=== PATIENT | female | born 1940 | race Caucasian/White ===

== ENCOUNTER 2017-01-30 22:43 | Emergency (ER) | payer MEDICARE, OTHER ==
[2017-01-30] MEDS ORDERED: DUONEB 0.5-3 MG/3 ml Neb IH ONE ×2 (22:54→23:38)
--- NOTE | 2017-01-30 23:03 | ERPHSYRPT ---
- History of Present Illness Time Seen by Provider: 01/30/17 22:55 Source: patient, other (daughter) Exam Limitations: no limitations Patient Subjective Stated Complaint: Bilateral Leg edema x2 weeks Triage Nursing Assessment: Bilateral Leg Edema x2 weeks, worsening x2 days. Increased lasix to 80mg daily last week with no improvements. Cough beginning today. Physician History: Pt has been c/o swelling of her ankles for 2 weeks. She was seen by her doctor and her Lasix was doubled from 20 mg daily few days ago. She is still c/o more severe increasing of the swelling more so on the left side, which has become painful as well. She has COPD, c/o chronic SOB, she has been on home O2 most of the time, denies chest pain, has nonproductive cough, but no fever, nausea, vomiting, diaphoresis or any distress. Method of Injury: other (denies injury) Occurred: days ago (2) Quality: constant Severity of Pain-Max: mild Lower Extremities Pain: ankle: bilateral (swelling) Modifying Factors: Improves With: nothing Associated Symptoms: none Allergies/Adverse Reactions: ciprofloxacin [From Cipro] Allergy (Verified 06/28/15 14:48) ciprofloxacin HCl [From Cipro] Allergy (Verified 06/28/15 14:48) levofloxacin [From Levaquin] Allergy (Verified 06/28/15 14:48) Antihistamines - Alkylamine Adverse Reaction (Unknown, Verified 06/28/15 14:48) Nausea doxycycline Adverse Reaction (Unknown, Verified 06/28/15 14:48) Vomiting metronidazole Adverse Reaction (Verified 06/28/15 14:48) Nausea Home Medications: Albuterol 2.5 mg/3 ml Neb [Proventil 2.5 mg/3 ml Neb] 2.5 mg IH TID [History] Aspirin 81 mg PO DAILY 09/02/14 [History] Calcium Carb/Magnesium Oxid/D3 [Calcium Magnesium + D Tablet] 1 each PO TID [History] Celecoxib [Celebrex] 200 mg PO DAILY 09/02/14 [History] Estrogens,Conjugated [Premarin] 0.625 mg PO DAILY 09/02/14 [History] Furosemide [Lasix] 20 mg PO BID 09/02/14 [History] Gabapentin [Neurontin] 300 mg PO TID 09/02/14 [History] Ipratropium/Albuterol Sulfate [Combivent Inhaler] 14.7 gm IH TID 09/02/14 [ History] Lorazepam 0.5 mg [Ativan 0.5 MG] 0.5 mg PO HS 09/02/14 [History] Metoprolol Tartrate 25 mg [Lopressor 25MG Tab] 25 mg PO BID 09/02/14 [ History] Multivitamin [Multivitamins] 1 each PO DAILY 09/02/14 [History] Rabeprazole Sodium [Aciphex] 20 mg PO DAILY 09/02/14 [History] Ropinirole 2Mg [Requip 2Mg Tab] 2 mg PO HS 09/02/14 [History] Ascorbic Acid [Vitamin C] 1,000 mg PO DAILY 01/14/15 [History] Amlodipine Besylate/Benazepril [Lotrel 10-20 mg Capsule] 1 each PO DAILY [History] Biotin 1 mg PO HS 03/30/15 [History] Gemfibrozil 600 mg [Lopid 600 mg] 1,200 mg PO BID 03/30/15 [History] Hydrocodone Bitartrate [Zohydro ER] 15 mg PO BID 03/30/15 [History] Tizanidine HCl 4 mg [Zanaflex 4 MG] 4 mg PO HS 03/30/15 [History] Vitamin B Complex [B Complex] 1 each PO DAILY 03/30/15 [History] Sulfamethoxazole/Trimethoprim [Sulfamethoxazole-Tmp Ds Tablet] 0.5 each PO DAILY 08/09/15 [History] Hx Tetanus, Diphtheria Vaccination/Date Given: No Hx Influenza Vaccination/Date Given: No Hx Pneumococcal Vaccination/Date Given: No - Review of Systems Constitutional: No Symptoms Eyes: No Symptoms Ears, Nose, & Throat: No Symptoms Respiratory: Cough, Dyspnea on Exertion (NDIAYE) Cardiac: Edema, No Chest Pain, No Palpitations, No Orthopnea Abdominal/Gastrointestinal: No Symptoms All Other Systems: Reviewed and Negative - Past Medical History Pertinent Past Medical History: Yes Neurological History: Migraines ENT History: Cataracts Cardiac History: Coronary Artery Disease, High Cholesterol, Hypertension Respiratory History: COPD, Other Endocrine Medical History: No Pertinent History Musculoskeletal History: Arthritis GI Medical History: Diverticulitis, GERD, Polyps History: No Pertinent History Psycho-Social History: No Pertinent History Female Reproductive Disorders: Fibroids Other Medical History: pul htn, chronic back pain - Past Surgical History Past Surgical History: Yes (hysterctomy,appendectomy,choly) Neuro Surgical History: Other Cardiac: Angioplasty Respiratory: No Pertinent History Gastrointestinal: Appendectomy, Cholecystectomy Genitourinary: No Pertinent History Musculoskeletal: Other Female Surgical History: Hysterectomy, Tubal Ligation, Other Other Surgical History: herinated disk, removal pus pocket to left breast, steroid to right shoulder; tonsillectomy - Social History Smoking Status: Never smoker Exposure to second hand smoke: No Alcohol Use: None Drug Use: none Patient Lives Alone: No Significant Family History: heart disease, diabetes, other - Nursing Vital Signs Nursing Vital Signs: Initial Vital Signs Temperature 97.8 F 01/30/17 22:45 Pulse Rate 68 01/30/17 22:45 Respiratory Rate 18 01/30/17 22:45 Blood Pressure 151/82 01/30/17 22:45 O2 Sat by Pulse Oximetry 96 01/30/17 22:45 Pain Scale Pain Intensity 5 - Physical Exam General Appearance: no apparent distress Eyes, Ears, Nose, Throat Exam: normal ENT inspection Neck Exam: normal inspection, non-tender, supple, No JVD Cardiovascular/Respiratory Exam: chest non-tender, normal breath sounds, regular rate/rhythm, heart sounds normal, no JVD, no respiratory distress, normal peripheral pulses, No crepitus, No JVD Gastrointestinal/Abdominal Exam: non-tender, soft Back Exam: normal inspection Ankle Exam: bilateral ankle: swelling (2 + edema) Neuro/Tendon Exam: normal sensation, normal motor functions Mental Status Exam: alert, oriented x 3, cooperative Skin Exam: normal color, warm, dry, No rash, No petechiae, No cyanosis SpO2 Interpretation: normal SpO2: 96 Oxygen Delivery: Nasal Cannula - Course EKG Interpreted by Me: RATE, NORMAL AXIS, NORMAL INTERVALS, Non-specific ST Changes - Radiology Exams Chest X-ray Interpretation: Interpreted by me, Negative, No Pneumonia, No Pneumothorax Ordered Tests: Active Orders 24 hr Category Date Time Status Case Folder STAT Care 01/30/17 22:55 Active EKG-ER Only STAT Care 01/30/17 22:54 Active IV Insertion STAT Care 01/30/17 23:29 Active CHEST 1 VIEW (PORTABLE) Stat Exams 01/30/17 22:55 Taken VENOUS BILATERAL EXTREMITY [US] Stat Exams 01/30/17 Ordered CBC W DIFF Stat Lab 01/30/17 23:20 Completed CMP Stat Lab 01/30/17 23:20 Completed NT PRO BNP Stat Lab 01/30/17 23:20 Completed PROTIME WITH INR Stat Lab 01/30/17 23:20 Completed TROPONIN Q3H Lab 01/30/17 23:20 Completed TROPONIN Q3H Lab 01/31/17 02:00 Ordered TROPONIN Q3H Lab 01/31/17 05:00 Ordered TROPONIN Q3H Lab 01/31/17 08:00 Ordered TROPONIN Q3H Lab 01/31/17 11:00 Ordered Respiratory Nebulizer STAT RT 01/30/17 22:56 Active Medication Summary Discontinued Medications Generic Name Dose Route Start Last Admin Trade Name Freq PRN Reason Stop Dose Admin Albuterol/Ipratropium 3 ml 01/30/17 22:54 01/30/17 23:40 Duoneb 0.5-3 Mg/3 Ml Neb IH 01/30/17 22:55 3 ml STAT ONE Administration Albuterol/Ipratropium Confirm 01/30/17 23:38 Duoneb 0.5-3 Mg/3 Ml Neb Administered 01/30/17 23:39 Dose 3 ml IH .STK-MED ONE Lab/Rad Data: Laboratory Result Diagrams 01/30/17 23:20 01/30/17 23:20 Laboratory Results 01/30/17 01/30/17 01/30/17 Range/Units 23:20 23:20 23:20 WBC (4.0-10.5) K/mm3 RBC (4.1-5.4) M/mm3 Hgb (12.0-16.0) gm/dl Hct (35-47) % MCV (78-100) fl MCH (26-32) pg MCHC (32-36) g/dl RDW (11.5-14.0) % Plt Count (150-450) K/mm3 MPV (6-9.5) fl Gran % (36.0-66.0) % Lymphocytes % (24.0-44.0) % Monocytes % (0.0-12.0) % Eosinophils % (0.00-5.0) % Basophils % (0.0-0.4) % Basophils # (0-0.4) INR 3.50 H (0.8-3.0) Sodium 137 (136-145) mEq/L Potassium 4.3 (3.5-5.1) mEq/L Chloride 101 (98-107) mEq/L Carbon Dioxide 25.7 (21-32) mEq/L Anion Gap 14.6 (5-15) MEQ/L BUN 26 H (9-20) mg/dL Creatinine 1.22 (0.55-1.30) mg/dl Estimated GFR 45 ML/MIN Glucose 103 (70-110) MG/DL Calcium 9.3 (8.5-10.1) mg/dL Total Bilirubin 0.30 (0.2-1.0) mg/dL AST 20 (15-37) U/L ALT 18 (12-78) U/L Alkaline Phosphatase 58 (46-116) U/L Troponin I < 0.017 (0.000-0.056) ng/ml NT-Pro-B Natriuret Pep 205 (0-450) pg/ml Serum Total Protein 7.7 (6.4-8.2) gm/dL Albumin 3.6 (3.4-5.0) g/dL 01/30/ Range/Units 23:20 WBC 8.9 (4.0-10.5) K/mm3 RBC 4.33 (4.1-5.4) M/mm3 Hgb 13.0 (12.0-16.0) gm/dl Hct 40.0 (35-47) % MCV 92.4 (78-100) fl MCH 30.0 (26-32) pg MCHC 32.5 (32-36) g/dl RDW 14.0 (11.5-14.0) % Plt Count 250 (150-450) K/mm3 MPV 10.3 H (6-9.5) fl Gran % 41.8 (36.0-66.0) % Lymphocytes % 42.8 (24.0-44.0) % Monocytes % 10.4 (0.0-12.0) % Eosinophils % 4.8 (0.00-5.0) % Basophils % 0.2 (0.0-0.4) % Basophils # 0.02 (0-0.4) INR (0.8-3.0) Sodium (136-145) mEq/L Potassium (3.5-5.1) mEq/L Chloride (98-107) mEq/L Carbon Dioxide (21-32) mEq/L Anion Gap (5-15) MEQ/L BUN (9-20) mg/dL Creatinine (0.55-1.30) mg/dl Estimated GFR ML/MIN Glucose (70-110) MG/DL Calcium (8.5-10.1) mg/dL Total Bilirubin (0.2-1.0) mg/dL AST (15-37) U/L ALT (12-78) U/L Alkaline Phosphatase (46-116) U/L Troponin I (0.000-0.056) ng/ml NT-Pro-B Natriuret Pep (0-450) pg/ml Serum Total Protein (6.4-8.2) gm/dL Albumin (3.4-5.0) g/dL - Progress Progress: unchanged Progress Note: 01/31/17 00:46 Pt has been stable, lying comfortable, not dyspneic, or febrile, stable, denies severe pain, Venous doppler negative, no DVT, Chest X ray reveals cardiomegaly, but no effusion or infiltrates. I discussed our results, and suggested to start using elastic stocking or NORY bands for the swelling and pain in the legs, and follow up with her doctor in the next few days, they understood, all questions answered, and safe to be discharged. - Departure Time of Disposition: 00:48 Departure Disposition: Home Clinical Impression: Edema Qualifiers: Edema type: unspecified Qualified Code(s): R60.9 - Edema, unspecified Condition: Stable Critical Care Time: No Referrals: LAKSHMI GARCIA [Primary Care Provider] - Instructions: Dependent Edema, Edema Due to Venous Stasis Additional Instructions: Rest with elevated legs, use elastic stockings, or NORY bands when ambulating, return if severe swelling, or pain or shortness of breath, chest pain! Follow up with your doctor in one week!
[2017-01-30 23:31] LABS: BASOPHIL % 0.2 % (0.0-0.4); Eosinophil % 4.8 % (0.00-5.0); Granulocytes % 41.8 % (36.0-66.0); Lymphocytes % 42.8 % (24.0-44.0); Mean Cell Volume 92.4 fl (78-100); Mean Platelet Volume 10.3 fl (6-9.5); Monocytes % 10.4 % (0.0-12.0); Platelet Count 250 K/mm3 (150-450); Red Blood Count 4.33 M/mm3 (4.1-5.4); White Blood Count 8.9 K/mm3 (4.0-10.5)
[2017-01-30 23:57] LABS: INR 3.5 (0.8-3.0); PROTIME 39.4 SECONDS (9.95-12.35)
[2017-01-31 00:12] LABS: ALBUMIN 3.6 g/dL (3.4-5.0); ANION GAP 14.6 MEQ/L (5-15); BILIRUBIN,TOTAL 0.3 mg/dL (0.2-1.0); Carbon Dioxide 25.7 mEq/L (21-32); Potassium 4.3 mEq/L (3.5-5.1); Total Protein 7.7 gm/dL (6.4-8.2)
[2017-01-31 01:11] VITALS: BP 123/58; PULSE 70; O2SAT 94
--- NOTE | 2017-01-31 09:22 | XRAY ---
Indication: Dyspnea and lower extremity edema. Comparison: September 08, 2015. Portable chest again demonstrates calcified granulomas. No focal infiltrate, consolidation, or large effusion. Heart is not enlarged for AP portable technique. Bony thorax intact again with minimal degenerative changes. Impression: Nonacute chest with chronic features.
--- NOTE | 2017-01-31 09:22 | XRAY ---
Indication: Bilateral leg swelling. Two-dimensional sonogram and color Doppler imaging of the major venous vessels of the left and right leg was performed. Comparison: None No thrombus seen in the examined deep venous vessels of the left and right leg including greater saphenous veins. Veins demonstrate normal compressibility. Venous waveforms are normal with and without augmentation. Impression: Left and right legs negative for DVT. Comment: Preliminary report was given.
== END 2017-01-31 01:11 | disposition home or self-care (01) ==
LOC: ED 22:43
DX: R60.9 Edema, unspecified (principal); J44.9 Chronic obstructive pulmonary disease, unspecified; R05 Cough; I10 Essential (primary) hypertension; E78.00 Pure hypercholesterolemia, unspecified; I25.10 Atherosclerotic heart disease of native coronary artery without angina pectoris; Z79.899 Other long term (current) drug therapy
CPT/HCPCS: 36415; 71010; 80053; 83880; 84484; 85025; 85610; 93005; 93041; 93970; 94640; 99283; 99284; A9270-GY

== ENCOUNTER 2017-08-19 12:08 | Inpatient (IN) | payer MEDICARE, OTHER ==
[2017-08-19] MEDS ORDERED: HYPROMELLOSE IU PRN (15:31)
[2017-08-19] MEDS ORDERED: Zanaflex 4 MG PO PRN (15:31)
[2017-08-19] MEDS ORDERED: NORCO 7.5/325 MG TAB PO PRN (15:31)
[2017-08-19] MEDS ORDERED: DEXTRAN IU PRN (15:31)
[2017-08-19] MEDS ORDERED: METHYLCELLULOSE 500 MG PO PRN (15:31)
[2017-08-19] MEDS ORDERED: Voltaren GEL TP PRN (15:31)
[2017-08-19] MEDS ORDERED: Metamucil PACKET PO PRN (15:50)
[2017-08-19] MEDS ORDERED: Artificial Tears 15 ML OP PRN (15:52)
[2017-08-19] MEDS ORDERED: MEDICATION INTERVENTION MC SCH ×2 (16:00→16:15)
[2017-08-19] MEDS: DUONEB 0.5-3 MG/3 ml Neb IH SCH (17:04)
[2017-08-19] MEDS: NYSTOP POWDER 15 GM TP SCH ×2 (17:07→22:11)
[2017-08-19] MEDS: KEFLEX 500 MG PO SCH ×2 (17:30→22:08)
[2017-08-19] MEDS: Coumadin 2.5 MG PO SCH (17:30)
[2017-08-19] MEDS: LASIX 20 MG PO SCH (17:40)
[2017-08-19] MEDS ORDERED: Cyclobenzaprine 10 MG PO PRN (17:54)
[2017-08-19] MEDS ORDERED: CHLORASEPTIC SPRAY 180 ML PO PRN (17:54)
[2017-08-19] MEDS ORDERED: PROVENTIL 2.5 MG/3 ML NEB IH SCH (19:00)
[2017-08-19] MEDS ORDERED: NON-FORMULARY ITEM (Aspirin [Aspirin] 81 MG) PO SCH (22:00)
[2017-08-19] MEDS ORDERED: BIOTIN 1 MG PO SCH (22:00)
[2017-08-19] MEDS ORDERED: Ativan 0.5 MG PO SCH (22:00)
[2017-08-19] MEDS ORDERED: NON-FORMULARY ITEM (Ipratropium/Albuterol Sulfate [Combivent Inhaler] 14.7 GM) IH SCH (22:00)
[2017-08-19] MEDS ORDERED: HYDROCODONE BITARTRATE PO SCH (22:00)
[2017-08-19] MEDS: REQUIP 2MG TAB PO SCH (22:08)
[2017-08-19] MEDS: NEURONTIN 300 MG PO SCH (22:08)
[2017-08-19] MEDS: LOPID 600 MG PO SCH (22:08)
[2017-08-19] MEDS: Toprol-Xl 25MG Tablets PO SCH (22:08)
[2017-08-19] MEDS: ECOTRIN 81 MG PO SCH (22:09)
[2017-08-19] MEDS: PATIENT OWN MEDICATION PO SCH (22:12)
[2017-08-20] MEDS ORDERED: PROVENTIL 2.5 MG/3 ML NEB IH PRN (01:09)
[2017-08-20] MEDS: DUONEB 0.5-3 MG/3 ml Neb IH SCH ×3 (07:03→19:30)
[2017-08-20] MEDS: MUCINEX DM 600/30MG PO SCH (09:38)
[2017-08-20] MEDS: LASIX 20 MG PO SCH (09:39)
[2017-08-20] MEDS: Protonix 40MG Tablet PO SCH (09:39)
[2017-08-20] MEDS: THERAGRAN MULTIVITAMIN PO SCH (09:39)
[2017-08-20] MEDS: LOPID 600 MG PO SCH ×2 (09:39→21:59)
[2017-08-20] MEDS: Zocor 10MG PO SCH (09:39)
[2017-08-20] MEDS: VITA-BEE WITH C PO SCH (09:39)
[2017-08-20] MEDS: Lotrel 5/10 MG PO SCH (09:39)
[2017-08-20] MEDS: KEFLEX 500 MG PO SCH ×4 (09:40→21:59)
[2017-08-20] MEDS: NYSTOP POWDER 15 GM TP SCH ×3 (09:40→21:59)
[2017-08-20] MEDS: Toprol-Xl 25MG Tablets PO SCH ×2 (09:40→21:58)
[2017-08-20] MEDS: PREMARIN PO SCH (09:40)
[2017-08-20] MEDS: PATIENT OWN MEDICATION PO SCH ×2 (09:55→21:59)
[2017-08-20] MEDS ORDERED: VITAMIN B COMPLEX PO SCH (10:00)
[2017-08-20] MEDS ORDERED: Aplisol ID SCH (10:00)
[2017-08-20] MEDS ORDERED: GUAIFENESIN PO SCH (10:00)
[2017-08-20] MEDS ORDERED: NON-FORMULARY ITEM (Amlodipine Besylate/Benazepril [Lotrel 10-20 Mg Capsule] 1 EACH) PO SCH (10:00)
[2017-08-20] MEDS ORDERED: NON-FORMULARY ITEM (Simvastatin [Zocor] 5 MG) PO SCH (10:00)
[2017-08-20] MEDS ORDERED: [UNRECOGNIZED DRUG - OTHER] PO SCH (10:00)
[2017-08-20] MEDS ORDERED: NON-FORMULARY ITEM (Multivitamin [Multivitamins] 1 EACH) PO SCH (10:00)
[2017-08-20] MEDS ORDERED: Klor Con 10 MEQ PO SCH (10:00)
[2017-08-20] MEDS ORDERED: DEXTROMETHORPHAN PO SCH (10:00)
[2017-08-20 11:25] LABS: INR 4.18 (0.8-3.0)
[2017-08-20] MEDS: Calcium 500MG W/Vit D Tablet PO SCH (11:51)
[2017-08-20] MEDS: NEURONTIN 300 MG PO SCH (11:51)
[2017-08-20] MEDS: celeBREX 100 MG PO SCH (11:51)
[2017-08-20] MEDS ORDERED: [UNRECOGNIZED DRUG - OTHER] PO SCH (12:00)
[2017-08-20] MEDS ORDERED: NON-FORMULARY ITEM (Rabeprazole Sodium [Aciphex] 20 MG) PO SCH (12:00)
[2017-08-20] MEDS ORDERED: NON-FORMULARY ITEM (Celecoxib [Celebrex] 200 MG) PO SCH (12:00)
[2017-08-20] MEDS ORDERED: D3 PO SCH (12:00)
[2017-08-20] MEDS ORDERED: MAGNESIUM OXID PO SCH (12:00)
[2017-08-20] MEDS ORDERED: CALCIUM CARB PO SCH (12:00)
[2017-08-20] MEDS ORDERED: Ativan 0.5 MG PO PRN (14:57)
--- NOTE | 2017-08-20 15:27 | PCM.HP ---
History of Present Illness - Chief Complaint Chief Complaint: deconditioning History of Present Illness: is a 77 year old female.admitted with weakness for reconditioning - Review of Systems Constitutional: No Fever, No Chills Eyes: No Symptoms Ears, Nose, & Throat: No Symptoms Respiratory: No Cough, No Short Of Breath Cardiac: No Chest Pain, No Edema, No Syncope Abdominal/Gastrointestinal: No Abdominal Pain, No Nausea, No Vomiting, No Diarrhea Genitourinary Symptoms: No Dysuria Musculoskeletal: No Back Pain, No Neck Pain Skin: No Rash Neurological: No Dizziness, No Focal Weakness, No Sensory Changes Psychological: No Symptoms Endocrine: No Symptoms Hematologic/Lymphatic: No Symptoms Immunological/Allergic: No Symptoms Medications & Allergies Home Medications: Home Medication List Albuterol 2.5 mg/3 ml Neb [Proventil 2.5 mg/3 ml Neb] 2.5 mg IH QID [History Confirmed 08/19/17] Aspirin 81 mg PO HS 09/02/14 [History Confirmed 08/19/17] Calcium Carb/Magnesium Oxid/D3 [Calcium Magnesium + D Tablet] 1 each PO LUNCH [History Confirmed 08/19/17] Celecoxib [Celebrex] 200 mg PO LUNCH 09/02/14 [History Confirmed 08/19/17] Estrogens,Conjugated [Premarin] 0.625 mg PO DAILY 09/02/14 [History Confirmed ] Gabapentin [Neurontin] 300 mg PO BID 09/02/14 [History Confirmed 08/19/17] Ipratropium/Albuterol Sulfate [Combivent Inhaler] 14.7 gm IH TID 09/02/14 [ History Confirmed 08/19/17] Lorazepam 0.5 mg [Ativan 0.5 MG] 1 - 2 tab PO HS 09/02/14 [History Confirmed 08/19/17] Multivitamin [Multivitamins] 1 each PO DAILY 09/02/14 [History Confirmed ] Rabeprazole Sodium [Aciphex] 20 mg PO LUNCH 09/02/14 [History Confirmed 08/19/17 ] Ropinirole 2Mg [Requip 2Mg Tab] 2 mg PO HS 09/02/14 [History Confirmed 05/04] Amlodipine Besylate/Benazepril [Lotrel 10-20 mg Capsule] 1 each PO DAILY [History Confirmed 08/19/17] Biotin 1 mg PO HS 03/30/15 [History Confirmed 08/19/17] Gemfibrozil 600 mg [Lopid 600 mg] 600 mg PO BID 03/30/15 [History Confirmed 08/19/17] Hydrocodone Bitartrate [Zohydro ER] 15 mg PO BID 03/30/15 [History Confirmed 05/04] Tizanidine HCl 4 mg [Zanaflex 4 MG] 4 mg PO HS PRN 03/30/15 [History Confirmed 08/19/17] Vitamin B Complex [B Complex] 1 each PO DAILY 03/30/15 [History Confirmed ] Dextran 70/Hypromellose [Moisture Eyes Protect Drops] 2 drop IU QID PRN [History Confirmed 08/19/17] Diclofenac Sodium Gel [Voltaren GEL] 100 gm TP BID PRN 08/19/17 [History Confirmed 08/19/17] Guaifenesin/Dextromethorphan [Mucinex Dm ER 1,200-60 mg Tab] 1 each PO DAILY 05/04 [History Confirmed 08/19/17] Hydrocodone Bit/Acetaminophen [Archbald 7.5-325 Tablet] 1 each PO Q4H PRN 08/19/17 [History Confirmed 08/19/17] Methylcellulose [Citrucel] 500 mg PO DAILY PRN 08/19/17 [History Confirmed 08/19] Metoprolol Succinate 25 mg Xl* [Toprol-Xl 25MG Tablets] 25 mg PO BID [History Confirmed 08/19/17] Nystatin Powder 15 gm [Nystop Powder 15 gm] 15 gm TP TID 08/19/17 [ History Confirmed 08/19/17] Potassium Chloride 10 Meq Tab* [Klor Con 10 MEQ] 1 tab PO DAILY 08/19/17 [ History Confirmed 08/19/17] Simvastatin [Zocor] 5 mg PO DAILY 08/19/17 [History Confirmed 08/19/17] Warfarin Sodium 2.5 mg [Coumadin 2.5 MG] 2.5 mg PO DAILY 08/19/17 [ History Confirmed 08/19/17] Allergies/Adverse Reactions: Allergies Allergy/AdvReac Type Severity Reaction Status Date / Time ciprofloxacin [From Cipro] Allergy Verified 06/28/15 14:48 ciprofloxacin HCl Allergy Verified 06/28/15 14:48 [From Cipro] levofloxacin [From Levaquin] Allergy Verified 06/28/15 14:48 Antihistamines - Alkylamine AdvReac Unknown Nausea Verified 06/28/15 14:48 doxycycline AdvReac Unknown Vomiting Verified 06/28/15 14:48 metronidazole AdvReac Nausea Verified 06/28/15 14:48 - Past Medical History Past Medical History: Yes Neurological History: Migraines ENT History: Cataracts Cardiac History: Coronary Artery Disease, High Cholesterol, Hypertension Respiratory History: COPD, Other Endocrine Medical History: No Pertinent History Musculoskelatal History: Arthritis GI Medical History: Diverticulitis, GERD, Polyps History: No Pertinent History Pyscho-Social History: No Pertinent History Reproductive Disorders: Fibroids Comment: pul htn, chronic back pain - Female History Are you now?: No - Past Surgical History Past Surgical History: Yes (hysterctomy,appendectomy,choly) Neuro Surgical History: Other Cardiac History: Angioplasty Respiratory Surgery: No Pertinent History GI Surgical History: Appendectomy, Cholecystectomy Genitourinary Surgical Hx: No Pertinent History Musculskeletal Surgical Hx: Other Female Surgical History: Hysterectomy, Tubal Ligation, Other Other Surgical History: herinated disk, removal pus pocket to left breast, steroid to right shoulder; tonsillectomy - Social History Smoking Status: Never smoker Exposure to second hand smoke: No Alcohol: None Drug Use: none Significant Family History: heart disease, diabetes, other - Physical Exam Vital Signs: Vital Signs - 24 hr Temp Pulse Resp BP Pulse Ox 08/20/17 13:54 79 20 84 L 08/20/17 07:30 99.3 F 78 20 146/72 87 L 08/20/17 07:03 75 22 82 L 08/19/17 20:00 98.8 F 83 18 147/70 91 L 08/19/17 19:46 89 18 91 L 08/19/17 17:53 96 H 18 87 L 08/19/17 16:54 99.5 F 87 18 196/84 87 L 08/19/17 16:16 99.5 F 81 18 196/84 Oxygen-Last 24 hours O2 Percentage 4 Liters = 36% O2 Percentage 3 Liters = 32% O2 Percentage 4 Liters = 36% O2 Percentage 3 Liters = 32% General Appearance: no apparent distress, alert Neurologic Exam: alert, oriented x 3, cooperative, normal mood/affect, nml cerebellar function, nml station & gait, sensation nml, No motor deficits Eye Exam: PERRL/EOMI, eyes nml inspection Ears, Nose, Throat Exam: normal ENT inspection, TMs normal, pharynx normal, moist mucous membranes Neck Exam: normal inspection, non-tender, supple, full range of motion Respiratory Exam: normal breath sounds, lungs clear, No respiratory distress Cardiovascular Exam: regular rate/rhythm, normal heart sounds, normal peripheral pulses Gastrointestinal/Abdomen Exam: soft, normal bowel sounds, No tenderness, No mass Back Exam: normal inspection, normal range of motion, No CVA tenderness, No vertebral tenderness Extremity Exam: normal inspection, normal range of motion, pelvis stable Skin Exam: normal color, warm, dry, No rash Lymphatic Exam: No adenopathy Results - Labs Lab/Micro Results: Lab Results-Last 24 Hours 08/19/17 08/20/17 Range/Units 18:10 10:52 PT 49.3 H (9.95-12.35) SECONDS INR 4.18 H (0.8-3.0) Group A Strep Antibody NEGATIVE (NEGATIVE) - Other Procedures and Tests Respiratory Therapy 08/19/17 17:53 Oxygen NASAL CANNULA 4 lpm 08/19/17 19:00 Respiratory Nebulizer 07,,19 Assessment/Plan (1) Physical debility Current Visit: Yes Status: Acute Code(s): R53.81 - OTHER MALAISE
[2017-08-20] MEDS: ECOTRIN 81 MG PO SCH (21:58)
[2017-08-20] MEDS: REQUIP 2MG TAB PO SCH (21:58)
[2017-08-21] MEDS: DUONEB 0.5-3 MG/3 ml Neb IH SCH ×3 (06:51→18:58)
[2017-08-21] MEDS: PATIENT OWN MEDICATION PO SCH ×2 (09:05→21:48)
[2017-08-21] MEDS: Aldactone 25 MG PO SCH (10:13)
[2017-08-21] MEDS: MUCINEX DM 600/30MG PO SCH (10:14)
[2017-08-21] MEDS: Toprol-Xl 25MG Tablets PO SCH ×2 (10:14→21:48)
[2017-08-21] MEDS: KEFLEX 500 MG PO SCH ×4 (10:14→21:47)
[2017-08-21] MEDS: Zocor 10MG PO SCH (10:14)
[2017-08-21] MEDS: THERAGRAN MULTIVITAMIN PO SCH (10:14)
[2017-08-21] MEDS: Lotrel 5/10 MG PO SCH (10:14)
[2017-08-21] MEDS: PREMARIN PO SCH (10:15)
[2017-08-21] MEDS: Protonix 40MG Tablet PO SCH (10:15)
[2017-08-21] MEDS: NYSTOP POWDER 15 GM TP SCH ×4 (10:15→21:48)
[2017-08-21] MEDS: LOPID 600 MG PO SCH ×2 (10:16→21:47)
[2017-08-21] MEDS: VITA-BEE WITH C PO SCH (10:16)
--- NOTE | 2017-08-21 11:58 | PCM.NOTE ---
Date and Time: 08/21/17 1158 Subjective Assessment: doing ok - Review of Systems Constitutional: No Fever, No Chills Eyes: No Symptoms Ears, Nose, & Throat: No Symptoms Respiratory: No Cough, No Short Of Breath Cardiac: No Chest Pain, No Edema, No Syncope Abdominal/Gastrointestinal: No Abdominal Pain, No Nausea, No Vomiting, No Diarrhea Genitourinary Symptoms: No Dysuria Musculoskeletal: No Back Pain, No Neck Pain Skin: No Rash Neurological: No Dizziness, No Focal Weakness, No Sensory Changes Psychological: No Symptoms Endocrine: No Symptoms Hematologic/Lymphatic: No Symptoms Immunological/Allergic: No Symptoms Objective Exam General Appearance: no apparent distress, alert Neurologic Exam: alert, oriented x 3, cooperative, normal mood/affect, nml cerebellar function, sensation nml, No motor deficits Skin Exam: normal color, warm, dry Eye Exam: PERRL, EOMI, eyes nml inspection Ears, Nose, Throat Exam: normal ENT inspection, pharynx normal, moist mucous membranes Neck Exam: normal inspection, non-tender, supple, full range of motion Respiratory Exam: normal breath sounds, lungs clear, No respiratory distress Cardiovascular Exam: regular rate/rhythm, normal heart sounds Gastrointestinal/Abdomen Exam: soft, No tenderness, No mass Extremity Exam: normal inspection, normal range of motion Back Exam: normal inspection, normal range of motion, No CVA tenderness, No vertebral tenderness Pelvic Exam: deferred Rectal Exam: deferred OBJECTIVE DATA Vital Signs: Vital Signs - 24 hr Temp Pulse Resp BP BP Pulse Ox 08/21/17 07:39 98.9 F 83 20 152/69 94 L 08/21/17 06:56 83 20 94 L 08/21/17 05:31 93 L 08/20/17 20:00 98.0 F 73 16 144/62 92 L 08/20/17 19:30 73 16 92 L 08/20/17 13:54 79 20 84 L Oxygen-Last 24 hours Oxygen Flowrate (L/min)-RT 15 Pain Assessment - Last Documented Pain Intensity 0 Pain Scale Used 0-10 Pain Scale,FLACC Intake and Output: Intake & Output 08/18/17 08/19/17 08/20/17 08/21/17 11:59 11:59 11:59 11:59 Intake Total 1560 840 Output Total 250 Balance 1560 590 Weight 108.9 kg Lab Results: Lab Results-Last 24 Hours 08/20/17 Range/Units 10:52 PT 49.3 H (9.95-12.35) SECONDS INR 4.18 H (0.8-3.0) Assessment/Plan (1) Physical debility Current Visit: Yes Status: Acute Code(s): R53.81 - OTHER MALAISE
[2017-08-21] MEDS: celeBREX 100 MG PO SCH (13:28)
[2017-08-21] MEDS: Calcium 500MG W/Vit D Tablet PO SCH (13:28)
[2017-08-21] MEDS: ECOTRIN 81 MG PO SCH (21:47)
[2017-08-22] MEDS: REQUIP 2MG TAB PO SCH ×2 (00:08→23:35)
[2017-08-22] MEDS: DUONEB 0.5-3 MG/3 ml Neb IH SCH ×3 (06:57→19:26)
[2017-08-22] MEDS: Toprol-Xl 25MG Tablets PO SCH ×2 (09:58→22:05)
[2017-08-22] MEDS: Lotrel 5/10 MG PO SCH (09:59)
[2017-08-22] MEDS: MUCINEX DM 600/30MG PO SCH (09:59)
[2017-08-22] MEDS: THERAGRAN MULTIVITAMIN PO SCH (09:59)
[2017-08-22] MEDS: KEFLEX 500 MG PO SCH ×4 (10:01→22:05)
[2017-08-22] MEDS: Aldactone 25 MG PO SCH (10:01)
[2017-08-22] MEDS: Protonix 40MG Tablet PO SCH (10:02)
[2017-08-22] MEDS: PREMARIN PO SCH (10:03)
[2017-08-22] MEDS: PATIENT OWN MEDICATION PO SCH ×2 (10:03→22:07)
[2017-08-22] MEDS: LOPID 600 MG PO SCH ×2 (10:05→22:05)
[2017-08-22] MEDS: VITA-BEE WITH C PO SCH (10:06)
[2017-08-22] MEDS: NYSTOP POWDER 15 GM TP SCH ×3 (10:07→22:05)
[2017-08-22] MEDS: Zocor 10MG PO SCH (10:13)
[2017-08-22] MEDS: Calcium 500MG W/Vit D Tablet PO SCH (13:06)
[2017-08-22] MEDS: celeBREX 100 MG PO SCH (13:07)
--- NOTE | 2017-08-22 15:17 | PROG NOTE ---
DATE: 08/22/2017 Chart is reviewed and events noted. The patient complained of generalized weakness, fatigue, complains of persistent neck pain. She states that has been ongoing since recent admission to acute care, complains of difficulty swallowing. As per patient's family the patient's medications were all mixed up during recent acute care stay and initial part of swing-bed stay. However they have now been straightened out like her home medications. As per patient and her family, she is not feeling any better with regards to her symptoms from before. Appears comfortable. Denies history of recent injury or unusual activity related to neck or back area. PHYSICAL EXAMINATION: VITAL SIGNS: Blood pressure 175/81, heart rate 76, respiratory rate 20, temperature 98.3F. Oxygen saturation 94%. HEENT: No pallor or icterus is noted. NECK: No JVD is present. Range of motion of neck is painful and limited. CVS: S1, S2 present. RESPIRATORY: Breath sounds are bilaterally diminished, clear to auscultation. ABDOMEN: Obese, soft, nontender. NEURO: She is alert, awake, answers simple questions appropriately, follows simple commands appropriately. Evaluation of motor strength bilateral upper and lower extremities revealed 4+ to 5 out of 5 motor strength. EXTREMITIES: Revealed 1+ edema on bilateral ankles. BACK: Reveals tenderness to percussion in cervical spine and paraspinal area. Also tenderness to percussion in upper thoracic area and spinal/paraspinal area noted. Mild cervical muscle and upper thoracic muscle spasm is present. LABORATORY DATA AND TESTS: There were no new labs today. Medications were reviewed. ASSESSMENT: A 77 year old woman with impression: 1) Generalized weakness. 2) Intractable neck pain and upper back pain. 3) Dysphagia. 4) History of hypertension/congestive heart failure. 5) Secondary pulmonary hypertension. 6) History of asthma. 7) History of anxiety. 8) Hyperlipidemia. 9) Chronic hypoxemia. 10) History of hyperkalemia. PLAN: Continue PRN analgesics. Will obtain MRI of cervical spine and upper back for further evaluation. Will repeat baseline labs. Will obtain flu swab. Speech therapy evaluation likely modified barium swallow at later date. After I finished my evaluation, the patient's daughter came up and stated that as per family, the patient has been confused. The patient's is requesting to obtain CT head for possible mini-stroke. The patient's clinical condition, work-up results and plan of management as outlined was discussed with the patient, her and daughter. They seem to be in understanding and agreement. Discussed with showcase maker, Sarah.
[2017-08-22 15:45] LABS: Hematocrit 35.5 % (35-47); Hemoglobin 11.5 gm/dl (12.0-16.0); Mean Cell Volume 93.2 fl (78-100); Mean Corpuscular Hgb Concent. 32.4 g/dl (32-36); Mean Platelet Volume 10.1 fl (6-9.5); Platelet Count 270 K/mm3 (150-450); Red Blood Count 3.81 M/mm3 (4.1-5.4); Red Cell Distribution Width 13.6 % (11.5-14.0); White Blood Count 9.2 K/mm3 (4.0-10.5)
[2017-08-22 15:47] LABS: A-aADO2 167; ABG HEMOGLOBIN 11.3; ABG POTASSIUM 4.1 (3.5-5.1); ABG SITE RIGHT RADIAL; ALLEN TEST OK? YES; ARTERIAL BLOOD GAS BASE EXCESS 1.7 (-2.0-2.0); ARTERIAL BLOOD GAS FIO2 40 %; ARTERIAL BLOOD GAS PCO2 42 mmHg (35-45); ARTERIAL BLOOD GAS PO2 66 mmHg (75-100); ARTERIAL BLOOD GAS pH 7.41 (7.35-7.45); CARBOXYHEMOGLOBIN 0.1 % THgb (0.0-6.9); HCO3- 26.6 (22-28); HGB O2 SAT 92.3 g/dF (94-100); Methhemoglobin 0.6 % (1.4-1.5); paO2 pAO1 0.28
[2017-08-22 16:08] LABS: INR 3.66 (0.8-3.0)
[2017-08-22 16:12] LABS: ALBUMIN 3.7 g/dL (3.5-5.0); ALKALINE PHOSPHATASE 79 U/L (38-126); ANION GAP 14.1 MEQ/L (5-15); BLOOD UREA NITROGEN 9 mg/dL (7-17); CHLORIDE 100 mmol/L (98-107); Calcium 9.1 mg/dL (8.4-10.2); Carbon Dioxide 28 mmol/L (22-30); Creatinine 1 0.72 mg/dL (0.52-1.04); Glucose 137 mg/dL (74-106); Potassium 4.3 mmol/L (3.5-5.1); SGOT/AST 23 U/L (14-36); SGPT/ALT 19 U/L (0-35); SODIUM 137 mmol/L (137-145); Total Protein 6.8 g/dL (6.3-8.2)
[2017-08-22 16:13] LABS: Mean Corpuscular Hemoglobin 30.1 pg (26-32)
[2017-08-22 16:27] LABS: INFLUENZA A NEGATIVE (NEGATIVE); INFLUENZA B NEGATIVE (NEGATIVE); RESPIRATORY SYNCTIAL VIRUS NEGATIVE (Negative)
[2017-08-22] MEDS ORDERED: CHLORASEPTIC SPRAY 180 ML PO PRN (18:04)
[2017-08-22] MEDS: Coumadin 2.5 MG PO SCH (21:13)
[2017-08-22] MEDS: ECOTRIN 81 MG PO SCH (22:04)
[2017-08-23] MEDS: DUONEB 0.5-3 MG/3 ml Neb IH SCH ×3 (07:14→18:58)
[2017-08-23] MEDS: KEFLEX 500 MG PO SCH ×4 (09:14→22:52)
[2017-08-23] MEDS: Aldactone 25 MG PO SCH (09:14)
[2017-08-23] MEDS: LOPID 600 MG PO SCH ×2 (09:15→22:52)
[2017-08-23] MEDS: Lotrel 5/10 MG PO SCH (09:15)
[2017-08-23] MEDS: MUCINEX DM 600/30MG PO SCH (09:15)
[2017-08-23] MEDS: NYSTOP POWDER 15 GM TP SCH ×4 (09:16→23:37)
[2017-08-23] MEDS: PATIENT OWN MEDICATION PO SCH (09:17)
[2017-08-23] MEDS: PREMARIN PO SCH (09:18)
[2017-08-23] MEDS: THERAGRAN MULTIVITAMIN PO SCH (09:19)
[2017-08-23] MEDS: Toprol-Xl 25MG Tablets PO SCH ×2 (09:19→22:53)
[2017-08-23] MEDS: Zocor 10MG PO SCH (09:20)
[2017-08-23] MEDS: VITA-BEE WITH C PO SCH (09:20)
[2017-08-23] MEDS: Calcium 500MG W/Vit D Tablet PO SCH (12:00)
[2017-08-23] MEDS: celeBREX 100 MG PO SCH (12:01)
[2017-08-23] MEDS: Protonix 40MG Tablet PO SCH (12:03)
[2017-08-23 13:54] LABS: INR 3.13 (0.8-3.0)
[2017-08-23] MEDS ORDERED: PATIENT OWN MEDICATION PO SCH (18:00)
[2017-08-23] MEDS: ECOTRIN 81 MG PO SCH (22:52)
[2017-08-23] MEDS: REQUIP 2MG TAB PO SCH (22:53)
[2017-08-24 05:54] LABS: INR 3.05 (0.8-3.0)
[2017-08-24] MEDS: DUONEB 0.5-3 MG/3 ml Neb IH SCH ×3 (07:07→19:23)
[2017-08-24] MEDS: KEFLEX 500 MG PO SCH ×4 (09:00→23:12)
[2017-08-24] MEDS: Aldactone 25 MG PO SCH (09:00)
[2017-08-24] MEDS: LOPID 600 MG PO SCH ×2 (09:01→23:12)
[2017-08-24] MEDS: MUCINEX DM 600/30MG PO SCH (09:01)
[2017-08-24] MEDS: Lotrel 5/10 MG PO SCH (09:01)
[2017-08-24] MEDS: PREMARIN PO SCH (09:02)
[2017-08-24] MEDS: Toprol-Xl 25MG Tablets PO SCH ×2 (09:03→23:12)
[2017-08-24] MEDS: Zocor 10MG PO SCH (09:03)
[2017-08-24] MEDS: THERAGRAN MULTIVITAMIN PO SCH (09:03)
[2017-08-24] MEDS: PATIENT OWN MEDICATION PO SCH ×2 (09:12→17:49)
[2017-08-24] MEDS: VITA-BEE WITH C PO SCH (10:48)
[2017-08-24] MEDS: NYSTOP POWDER 15 GM TP SCH ×3 (10:48→23:13)
[2017-08-24] MEDS: Protonix 40MG Tablet PO SCH (10:48)
[2017-08-24] MEDS: celeBREX 100 MG PO SCH (12:28)
[2017-08-24] MEDS: Calcium 500MG W/Vit D Tablet PO SCH (12:28)
[2017-08-24] MEDS ORDERED: NORCO 7.5/325 MG TAB PO PRN (15:31)
[2017-08-24] MEDS: REQUIP 2MG TAB PO SCH (23:12)
[2017-08-24] MEDS: ECOTRIN 81 MG PO SCH (23:12)
[2017-08-25 06:39] LABS: INR 2.77 (0.8-3.0)
[2017-08-25] MEDS: DUONEB 0.5-3 MG/3 ml Neb IH SCH ×3 (06:57→19:00)
[2017-08-25] MEDS: PATIENT OWN MEDICATION PO SCH ×2 (08:52→17:44)
[2017-08-25] MEDS: LOPID 600 MG PO SCH ×2 (08:53→21:58)
[2017-08-25] MEDS: KEFLEX 500 MG PO SCH ×4 (08:53→21:57)
[2017-08-25] MEDS: Lotrel 5/10 MG PO SCH (08:53)
[2017-08-25] MEDS: Aldactone 25 MG PO SCH (08:53)
[2017-08-25] MEDS: MUCINEX DM 600/30MG PO SCH (08:54)
[2017-08-25] MEDS: NYSTOP POWDER 15 GM TP SCH ×3 (08:54→22:29)
[2017-08-25] MEDS: PREMARIN PO SCH (08:55)
[2017-08-25] MEDS: THERAGRAN MULTIVITAMIN PO SCH (08:55)
[2017-08-25] MEDS: Toprol-Xl 25MG Tablets PO SCH ×2 (08:56→21:58)
[2017-08-25] MEDS: Zocor 10MG PO SCH (08:56)
--- NOTE | 2017-08-25 09:23 | PROG NOTE ---
DATE: 08/23/2017 Chart is reviewed and events noted. At the time of this evaluation the patient is sitting comfortably in bed. She states she walked a little bit with her daughter's help yesterday. She states the neck pain and back pain is better. She denies any other new complaints. Appears comfortable. PHYSICAL EXAMINATION: VITAL SIGNS: Blood pressure 132/66, heart rate 72, respiratory rate 22, temperature 97.8F. Oxygen saturation 93% on 5 liters. HEENT: Pallor is present. No icterus is noted. NECK: No JVD is present. CVS: S1, S2 present. RESPIRATORY: Breath sounds are bilaterally diminished and clear to auscultation. ABDOMEN: Obese, soft, nontender. NEURO: She is alert, oriented x3. EXTREMITIES: Trace edema on bilateral ankles (chronic). BACK: Reveals mild tenderness to percussion cervical spine, thoracic spine paraspinal area. Mild tenderness lumbar spine was present. LABORATORY DATA AND TESTS: Labs from 08/22/2017 showed CBC with white blood cell 9.2, hemoglobin 11.5, hematocrit 5.5, PLT 217,000. International normalized ratio 3.6. ABG showed pH of 7.41, pCO2 42, pO2 66. CMP was essentially unremarkable except glucose 137 and rest of panel with negative flu A/B, respiratory syncytial virus. CT scan of head showed no acute changes. MRI of cervical spine showed multilevel degenerative disc desiccation signal, and C3-C7 disc space narrowing. No acute fracture, subluxation or abnormal bone marrow signal. Stable mild broad-based disc osteophyte complex effacing thecal sac. Stable bilateral foraminal stenosis due to uncovertebral spurring. There is stable minimal broad-based bulge without disc herniation or canal stenosis at C4-C5. No cord signal abnormality. CT scan of lumbar spine showed multilevel degenerative changes with central canal stenosis at L1-L2, moderate to severe central canal stenosis at L3-L4. Medications were reviewed. ASSESSMENT: A 77 year old woman with impression: 1) Generalized weakness. 2) Intractable neck pain and upper back pain. 3) Dysphagia. 4) Hypertension/congestive heart failure. 5) Pulmonary hypertension. 6) Anxiety. 7) Hyperlipidemia. 8) Chronic hypoxemia. 9) History of hypokalemia, resolved. PLAN: Continue PRN analgesics. It is unclear why lumbar MRI was obtained. Continue PRN analgesics. Thoracic spine MRI was requested however I do not see the report of that on the chart. I am unclear why lumbar MRI was obtained. Will check with nursing staff and request thoracic spine MRI. Will increase oxygen. Will obtain repeat international normalized ratio today. Continue PT and OT as tolerated. The patient's clinical condition, work-up results as outlined and plan of management were discussed in detail with patient. She seems to be in understanding and agreement. No other family members were present today. The plan was discussed with the patient's nurse, Nona.
[2017-08-25] MEDS: Protonix 40MG Tablet PO SCH (11:56)
[2017-08-25] MEDS: VITA-BEE WITH C PO SCH (11:56)
[2017-08-25] MEDS: Calcium 500MG W/Vit D Tablet PO SCH (11:57)
[2017-08-25] MEDS: celeBREX 100 MG PO SCH (11:57)
[2017-08-25] MEDS: Coumadin 1 MG PO SCH (17:45)
[2017-08-25] MEDS: ECOTRIN 81 MG PO SCH (21:57)
[2017-08-25] MEDS: REQUIP 2MG TAB PO SCH (21:58)
[2017-08-26] MEDS: DUONEB 0.5-3 MG/3 ml Neb IH SCH ×3 (07:06→19:37)
[2017-08-26] MEDS ORDERED: Spiriva 18 Mcg/Cap Inhaler IH ONE (07:24)
--- NOTE | 2017-08-26 07:54 | PROG NOTE ---
DATE: 08/25/2017 Chart is reviewed and events noted. At the time of this evaluation the patient is alert, awake and comfortable. She states she ambulated some this morning. She states her neck pain, upper back pain has improved. She denies increased shortness of breath, overall feeling much better. Appears comfortable. PHYSICAL EXAMINATION: VITAL SIGNS: Blood pressure 179/82, heart rate 69, respiratory rate 18, temperature 98.6F. Oxygen saturation 95% on 2 liters. HEENT: Pallor is present. No icterus is noted. NECK: No JVD is present. CVS: S1, S2 present. RESPIRATORY: Breath sounds are bilaterally diminished, clear to auscultation anteriorly. ABDOMEN: Obese, soft, nontender. NEURO: She is alert, oriented x3. EXTREMITIES: Revealed trace edema on ankles. LABORATORY DATA AND TESTS: International normalized ratio from today is 2.77. MRI of thoracic spine from today showed no acute thoracic spine fracture, no bone changes, moderate diffuse thoracic spondylosis. Medications were reviewed. ASSESSMENT: A 77 year old woman with impression: 1) Generalized weakness, clinically improving. 2) Intractable neck pain/upper back pain, improved. 3) Thoracic spondylosis. 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 5) Cervical spinal stenosis (C3-C4). 6) Lumbar spinal stenosis (L1-L2, L3-L4). 7) Hypertension/congestive heart failure. 8) Secondary pulmonary hypertension. 9) Anxiety. 10) Hyperlipidemia. 11) Chronic hypoxemia. 12) History of dysphagia. PLAN: Continue PT as tolerated. Continue PRN analgesics. Continue to follow CBC and electrolytes. Speech therapy follow up. Will follow the patient in the office after discharge. The plan was discussed with the patient. She seems to be in understanding and agreement.
[2017-08-26] MEDS: Zocor 10MG PO SCH (09:43)
[2017-08-26] MEDS: Lotrel 5/10 MG PO SCH (09:44)
[2017-08-26] MEDS: LOPID 600 MG PO SCH ×2 (09:44→22:45)
[2017-08-26] MEDS: Aldactone 25 MG PO SCH (09:44)
[2017-08-26] MEDS: Toprol-Xl 25MG Tablets PO SCH ×2 (09:44→22:45)
[2017-08-26] MEDS: KEFLEX 500 MG PO SCH ×4 (09:44→22:44)
[2017-08-26] MEDS: PREMARIN PO SCH (09:45)
[2017-08-26] MEDS: MUCINEX DM 600/30MG PO SCH (09:45)
[2017-08-26] MEDS: Protonix 40MG Tablet PO SCH (09:45)
[2017-08-26] MEDS: VITA-BEE WITH C PO SCH (09:45)
[2017-08-26] MEDS: PATIENT OWN MEDICATION PO SCH ×2 (09:46→17:59)
[2017-08-26] MEDS: NYSTOP POWDER 15 GM TP SCH ×2 (09:46→14:10)
[2017-08-26] MEDS: celeBREX 100 MG PO SCH (12:04)
[2017-08-26] MEDS: THERAGRAN MULTIVITAMIN PO SCH (12:04)
[2017-08-26] MEDS: Calcium 500MG W/Vit D Tablet PO SCH (12:06)
[2017-08-26] MEDS: REQUIP 2MG TAB PO SCH (15:28)
[2017-08-26] MEDS: Coumadin 1 MG PO SCH (17:58)
[2017-08-26] MEDS: ECOTRIN 81 MG PO SCH (22:44)
[2017-08-26] MEDS: REQUIP 2MG TAB PO PRN (22:45)
[2017-08-27] MEDS: NYSTOP POWDER 15 GM TP SCH ×4 (00:20→21:12)
[2017-08-27] MEDS: DUONEB 0.5-3 MG/3 ml Neb IH SCH ×3 (06:49→19:40)
[2017-08-27] MEDS: Lotrel 5/10 MG PO SCH (09:51)
[2017-08-27] MEDS: KEFLEX 500 MG PO SCH ×4 (09:51→21:08)
[2017-08-27] MEDS: Protonix 40MG Tablet PO SCH (09:51)
[2017-08-27] MEDS: Toprol-Xl 25MG Tablets PO SCH ×2 (09:51→21:08)
[2017-08-27] MEDS: MUCINEX DM 600/30MG PO SCH (09:51)
[2017-08-27] MEDS: PATIENT OWN MEDICATION PO SCH ×2 (09:52→18:11)
[2017-08-27] MEDS: Zocor 10MG PO SCH (09:52)
[2017-08-27] MEDS: LOPID 600 MG PO SCH ×2 (09:52→21:08)
[2017-08-27] MEDS: Aldactone 25 MG PO SCH (09:52)
[2017-08-27] MEDS: PREMARIN PO SCH (09:52)
[2017-08-27] MEDS: VITA-BEE WITH C PO SCH (09:53)
[2017-08-27] MEDS: Calcium 500MG W/Vit D Tablet PO SCH (12:00)
[2017-08-27] MEDS: THERAGRAN MULTIVITAMIN PO SCH (12:00)
[2017-08-27] MEDS: REQUIP 2MG TAB PO PRN (12:00)
[2017-08-27] MEDS: celeBREX 100 MG PO SCH (12:00)
[2017-08-27] MEDS: Coumadin 1 MG PO SCH (18:11)
[2017-08-27] MEDS: ECOTRIN 81 MG PO SCH (21:08)
[2017-08-28] MEDS: REQUIP 2MG TAB PO PRN ×2 (00:03→23:25)
[2017-08-28] MEDS: DUONEB 0.5-3 MG/3 ml Neb IH SCH ×3 (06:31→19:27)
[2017-08-28] MEDS: LOPID 600 MG PO SCH ×2 (09:53→21:54)
[2017-08-28] MEDS: Aldactone 25 MG PO SCH (09:53)
[2017-08-28] MEDS: KEFLEX 500 MG PO SCH ×2 (09:53→12:28)
[2017-08-28] MEDS: Lotrel 5/10 MG PO SCH (09:54)
[2017-08-28] MEDS: MUCINEX DM 600/30MG PO SCH (09:54)
[2017-08-28] MEDS: Zocor 10MG PO SCH (09:56)
[2017-08-28] MEDS: Toprol-Xl 25MG Tablets PO SCH ×2 (09:56→21:54)
[2017-08-28] MEDS: Protonix 40MG Tablet PO SCH (09:56)
[2017-08-28] MEDS: VITA-BEE WITH C PO SCH (09:56)
[2017-08-28 09:58] LABS: INR 1.72 (0.8-3.0)
[2017-08-28] MEDS: PATIENT OWN MEDICATION PO SCH ×2 (09:58→18:01)
[2017-08-28] MEDS: PREMARIN PO SCH (09:58)
[2017-08-28] MEDS: Calcium 500MG W/Vit D Tablet PO SCH (12:28)
[2017-08-28] MEDS: celeBREX 100 MG PO SCH (12:28)
[2017-08-28] MEDS: THERAGRAN MULTIVITAMIN PO SCH (12:33)
[2017-08-28] MEDS: NYSTOP POWDER 15 GM TP SCH ×3 (14:00→21:55)
[2017-08-28] MEDS: Coumadin 1 MG PO SCH (18:00)
[2017-08-28] MEDS: ECOTRIN 81 MG PO SCH (21:54)
[2017-08-29] MEDS: DUONEB 0.5-3 MG/3 ml Neb IH SCH ×2 (06:26→12:34)
[2017-08-29 07:09] VITALS: BP 135/65
[2017-08-29] MEDS: MUCINEX DM 600/30MG PO SCH (09:59)
[2017-08-29] MEDS: Lotrel 5/10 MG PO SCH (09:59)
[2017-08-29] MEDS: Zocor 10MG PO SCH (09:59)
[2017-08-29] MEDS: Toprol-Xl 25MG Tablets PO SCH (10:00)
[2017-08-29] MEDS: NYSTOP POWDER 15 GM TP SCH (10:00)
[2017-08-29] MEDS: Aldactone 25 MG PO SCH (10:00)
[2017-08-29] MEDS: Protonix 40MG Tablet PO SCH (10:00)
[2017-08-29] MEDS: LOPID 600 MG PO SCH (10:00)
[2017-08-29] MEDS: THERAGRAN MULTIVITAMIN PO SCH (10:00)
[2017-08-29] MEDS: VITA-BEE WITH C PO SCH (10:00)
[2017-08-29] MEDS: PREMARIN PO SCH (10:01)
[2017-08-29] MEDS: PATIENT OWN MEDICATION PO SCH (10:02)
[2017-08-29] MEDS: Calcium 500MG W/Vit D Tablet PO SCH (11:30)
[2017-08-29] MEDS: celeBREX 100 MG PO SCH (11:30)
--- NOTE | 2017-08-29 12:39 | PCM.DS ---
Discharge Summary Date of Admission: 08/19/17 15:57 Admitting Physician: DEBI ROJAS Primary Care Provider: LAKSHMI GARCIA Allergies Allergies ciprofloxacin [From Cipro] Allergy (Verified 06/28/15 14:48) ciprofloxacin HCl [From Cipro] Allergy (Verified 06/28/15 14:48) levofloxacin [From Levaquin] Allergy (Verified 06/28/15 14:48) Antihistamines - Alkylamine Adverse Reaction (Unknown, Verified 06/28/15 14:48) Nausea doxycycline Adverse Reaction (Unknown, Verified 06/28/15 14:48) Vomiting metronidazole Adverse Reaction (Verified 06/28/15 14:48) Nausea Hospital Summary - Hospital Course Hospital Course: Chief Complaint Diagnosis deconditioning Allergies Allergy/AdvReac Type Severity Reaction Status Date / Time ciprofloxacin [From Cipro] Allergy Verified 06/28/15 14:48 ciprofloxacin HCl Allergy Verified 06/28/15 14:48 [From Cipro] levofloxacin [From Levaquin] Allergy Verified 06/28/15 14:48 Antihistamines - Alkylamine AdvReac Unknown Nausea Verified 06/28/15 14:48 doxycycline AdvReac Unknown Vomiting Verified 06/28/15 14:48 metronidazole AdvReac Nausea Verified 06/28/15 14:48 Vital Signs (Last 24 hours) Temp Pulse Resp BP Pulse Ox 08/29/17 07:09 98.6 F 86 16 135/65 92 L 08/29/17 06:30 86 16 92 L 08/28/17 19:48 98.0 F 63 20 123/58 94 L 08/28/17 19:00 65 18 93 L 08/28/17 12:39 62 18 95 Home Medications Medication Instructions Recorded Confirmed Last Taken Type Dextran 70/Hypromellose [Moisture 2 drop IU QID PRN 08/19/17 08/19/17 Unknown History Eyes Protect Drops] Diclofenac Sodium Gel [Voltaren 100 gm TP BID PRN 08/19/17 08/19/17 08/19/17 History GEL] Guaifenesin/Dextromethorphan 1 each PO DAILY 08/19/17 08/19/17 08/19/17 History [Mucinex Dm ER 1,200-60 mg Tab] Hydrocodone Bit/Acetaminophen 1 each PO Q4H PRN 08/19/17 08/19/17 Unknown History [Sasabe 7.5-325 Tablet] Methylcellulose [Citrucel] 500 mg PO DAILY PRN 08/19/17 08/19/17 Unknown History Metoprolol Succinate 25 mg Xl* 25 mg PO BID 08/19/17 08/19/17 08/19/17 History [Toprol-Xl 25MG Tablets] Nystatin Powder 15 gm [Nystop 15 gm TP TID 08/19/17 08/19/17 08/19/17 History Powder 15 gm] Potassium Chloride 10 Meq Tab* 1 tab PO DAILY 08/19/17 08/19/17 08/19/17 History [Klor Con 10 MEQ] Simvastatin [Zocor] 5 mg PO DAILY 08/19/17 08/19/17 08/19/17 History Warfarin Sodium 2.5 mg 2.5 mg PO DAILY 08/19/17 08/19/17 08/18/17 History [Coumadin 2.5 MG] Current Medications Generic Name Dose Route Start Last Admin Trade Name Freq PRN Reason Stop Dose Admin Hydrocodone Bitart/Acetaminophen 1 tab 08/24/17 15:31 Sasabe 7.5/325 Mg Tab PO 08/29/17 15:30 Q4H PRN PAIN Albuterol Sulfate 2.5 mg 08/20/17 01:09 Proventil 2.5 Mg/3 Ml Neb IH 09/18/17 18:59 QIDRT PRN SHORTNESS OF BREATH/WHEEZING Albuterol/Ipratropium 3 ml 08/19/17 19:00 08/29/17 06:26 Duoneb 0.5-3 Mg/3 Ml Neb IH 09/18/17 18:59 3 ml TIDRT [place] Administration Amlodipine/Benazepril HCl 2 cap 08/20/17 10:00 08/29/17 09:59 Lotrel 5/10 Mg PO 09/19/17 09:59 2 cap DAILY [place] Administration Artificial Tears 0 ml 08/19/17 15:52 Artificial Tears 15 Ml OP 09/18/17 15:51 QIDP PRN DRY EYES Aspirin 81 mg 08/19/17 22:00 08/28/17 21:54 Ecotrin 81 Mg PO 09/18/17 21:59 81 mg HS [place] Administration Calcium Carbonate 1 tab 08/20/17 12:00 08/29/17 11:30 Calcium 500mg W/Vit D Tablet PO 09/19/17 11:59 1 tab LUNCH [place] Administration Celecoxib 200 mg 08/20/17 12:00 08/29/17 11:30 Celebrex 100 Mg PO 09/19/17 11:59 200 mg LUNCH [place] Administration Diclofenac Sodium 100 gm 08/19/17 15:31 08/26/17 03:00 Voltaren Gel TP 09/18/17 15:30 100 gm BID PRN PRN Administration PAIN Estrogens Conjugated 0.625 mg 08/20/17 10:00 08/29/17 10:01 Premarin PO 09/19/17 09:59 0.625 mg DAILY [place] Administration Gemfibrozil 600 mg 08/19/17 22:00 08/29/17 10:00 Lopid 600 Mg PO 09/18/17 21:59 600 mg BID [place] Administration Guaifenesin/Dextromethorphan 2 tablet 08/20/17 10:00 08/29/17 09:59 Mucinex Dm 600/30mg PO 09/19/17 09:59 2 tablet DAILY [place] Administration Lorazepam 0.5 mg 08/20/17 14:57 Ativan 0.5 Mg PO 09/19/17 14:56 HS PRN PRN INSOMNIA Metoprolol Succinate 25 mg 08/19/17 22:00 08/29/17 10:00 Toprol-Xl 25mg Tablets PO 09/18/17 21:59 25 mg BID [place] Administration Miscellaneous Information 1 each 08/19/17 16:00 Medication Intervention MC 09/18/17 15:59 .RT TO CHECK ON [place] Multivitamins 1 tab 08/20/17 10:00 08/29/17 10:00 Angelica-Bee With C PO 09/19/17 09:59 1 tab DAILY [place] Administration Multivitamins Therapeutic 1 tab 08/20/17 10:00 08/29/17 10:00 Theragran Multivitamin PO 09/19/17 09:59 1 tab DAILY [place] Administration Nystatin 15 gm 08/19/17 16:00 08/29/17 10:00 Nystop Powder 15 Gm TP 09/18/17 15:59 15 gm TID [place] Administration Pantoprazole Sodium 40 mg 08/20/17 10:00 08/29/17 10:00 Protonix 40mg Tablet PO 09/19/17 09:59 40 mg DAILY [place] Administration Patient Own Med ( 1 each 08/24/17 10:00 08/29/17 10:02 Zohydro) PO 09/23/17 09:59 1 each QAM [place] Administration Patient Own Med ( 0 each 08/24/17 18:00 08/28/17 18:01 Zohydro) PO 09/22/17 17:59 1 each 1800 [place] Administration Phenol 1 ml 08/22/17 18:04 Chloraseptic [place] 180 Ml PO 09/18/17 17:53 UD PRN PAIN Psyllium Hydrophilic Mucilloid 1 pkt 08/19/17 15:50 08/20/17 09:55 Metamucil Packet PO 09/18/17 15:49 1 pkt DAILY PRN PRN Administration CONSTIPATION Ropinirole HCl 2 mg 08/26/17 16:20 08/28/17 23:25 Requip 2mg Tab PO 09/25/17 16:29 2 mg BID PRN PRN Administration PAIN Simvastatin 5 mg 08/20/17 10:00 08/29/17 09:59 Zocor 10mg PO 09/19/17 09:59 5 mg DAILY [place] Administration Spironolactone 25 mg 08/21/17 10:00 08/29/17 10:00 Aldactone 25 Mg PO 09/20/17 09:59 25 mg DAILY [place] Administration Tuberculin PPD 5 unit 08/31/17 10:00 Aplisol ID 08/31/17 10:01 DAILY [facility] Warfarin Sodium 1 mg 08/25/17 18:00 08/28/17 18:00 Coumadin 1 Mg PO 09/24/17 17:59 1 mg DAILY@1800 [place] Administration Discontinued Medications Generic Name Dose Route Start Last Admin Trade Name Freq PRN Reason Stop Dose Admin Hydrocodone Bitart/Acetaminophen 1 tab 08/19/17 15:31 08/19/17 17:36 Sasabe 7.5/325 Mg Tab PO 08/24/17 15:30 1 tab Q4H PRN Administration PAIN Albuterol Sulfate 2.5 mg 08/19/17 19:00 08/20/17 01:09 Proventil 2.5 Mg/3 Ml Neb IH 09/18/17 18:59 Not Given QIDRT [place] Cephalexin HCl 500 mg 08/19/17 17:00 08/28/17 12:28 Keflex 500 Mg PO 09/18/17 16:59 500 mg QID [place] Administration Cyclobenzaprine HCl 10 mg 08/19/17 17:54 Cyclobenzaprine 10 Mg PO 09/18/17 17:53 HS PRN PRN PAIN Furosemide 20 mg 08/19/17 17:00 08/20/17 09:39 Lasix 20 Mg PO 09/18/17 16:59 20 mg BID DIURETIC [place] Administration Gabapentin 300 mg 08/19/17 22:00 08/20/17 11:51 Neurontin 300 Mg PO 09/18/17 21:59 300 mg 1200,2200 [place] Administration Lorazepam 0 mg 08/19/17 22:00 08/19/17 22:09 Ativan 0.5 Mg PO 09/18/17 21:59 0.5 mg HS [place] Administration Miscellaneous Information 1 each 08/19/17 16:15 Medication Intervention 09/18/17 16:14 .RN TO CHECK ON [place] Zohydro Er 15mg 1 each 08/19/17 22:00 08/23/17 09:17 Capsule PO 09/18/17 21:59 1 each BID [place] Administration Patient Own Medication 15 each 08/23/17 18:00 08/23/17 18:02 Patient Own Medication PO 09/22/17 17:59 15 each 1800 [place] Administration Phenol 1 ml 08/19/17 17:54 Chloraseptic [place] 180 Ml PO 09/18/17 17:53 Q2H/PRN PRN PAIN Potassium Chloride 10 meq 08/20/17 10:00 08/20/17 09:39 Klor Con 10 Meq PO 09/19/17 09:59 10 meq DAILY [place] Administration Ropinirole HCl 2 mg 08/19/17 22:00 08/26/17 15:28 Requip 2mg Tab PO 09/18/17 21:59 2 mg HS [place] Administration Tizanidine HCl 4 mg 08/19/17 15:31 Zanaflex 4 Mg PO 09/18/17 15:30 HS PRN PRN PAIN Tuberculin PPD 5 unit 08/20/17 10:00 08/21/17 16:52 Aplisol ID 08/20/17 10:01 5 unit DAILY [place] Administration Warfarin Sodium 2.5 mg 08/19/17 18:00 08/22/17 21:13 Coumadin 2.5 Mg PO 09/18/17 17:59 Not Given COU [place] Intake & Output (Last 24 hours) 08/27/17 08/28/17 08/29/17 08/30/17 11:59 11:59 11:59 11:59 Intake Total 1280 920 660 Balance 1280 920 660 Orders (Last 24 hours) Category Date Time Status BMP Routine Lab 09/02/17 04:00 Ordered Tuberculin,Purif.prot.deriv. [Aplisol] Med 08/31/17 10:00 Active 5 unit ID DAILY - Vitals & Intake/Output Vital Signs: Vital Signs Temperature 98.6 F 08/29/17 07:09 Pulse Rate 86 08/29/17 07:09 Respiratory Rate 16 08/29/17 07:09 Blood Pressure 135/65 08/29/17 07:09 O2 Sat by Pulse Oximetry 92 L 08/29/17 07:09 Oxygen-Last Documented O2 Percentage 3 Liters = 32% Intake & Output: Intake & Output 08/27/17 08/28/17 08/29/17 08/30/17 11:59 11:59 11:59 11:59 Intake Total 1280 920 660 Balance 1280 920 660 - Lab Result Diagrams: 08/22/17 15:24 08/22/17 15:24 - Procedures and Test Procedures and Tests throughout Hospitalization: Therapy Orders & Screens 08/19/17 16:07 PT Eval & Treat ( Order) ROUTINE Reason for Eval:: swingbed status Diagnosis: Deconditioning r/t hypokalemia,bigeminy,gastroenteritis 08/19/17 16:32 RT Screen per Nursing Assess ONCE Comment: Protocol Order Physician Instructions: Greater than 3 points order RT Admission Screen Reason For Exam: Triggered on Admission Diagnosis: deconditioning Diagnosis: deconditioning Pneumonia: No Home O2: Yes Asthma: No CHF: No Home CPAP/BIPAP: Yes Home Nebs/MDI: Yes Total Points: 15 08/19/17 17:53 Oxygen NASAL CANNULA 3 lpm Comment: Diagnosis: deconditioning 08/19/17 19:00 Respiratory Nebulizer , Comment: Diagnosis: deconditioning Discharge Exam General Appearance: no apparent distress, alert Neurologic Exam: alert, oriented x 3, cooperative, normal mood/affect, nml cerebellar function, sensation nml, No motor deficits Skin Exam: normal color, warm, dry Eye Exam: PERRL, EOMI, eyes nml inspection Ears, Nose, Throat Exam: normal ENT inspection, pharynx normal, moist mucous membranes Neck Exam: normal inspection, non-tender, supple, full range of motion Respiratory Exam: normal breath sounds, lungs clear, No respiratory distress Cardiovascular Exam: regular rate/rhythm, normal heart sounds Gastrointestinal/Abdomen Exam: soft, No tenderness, No mass Extremity Exam: normal inspection, normal range of motion Back Exam: normal inspection, normal range of motion, No CVA tenderness, No vertebral tenderness Pelvic Exam: deferred Rectal Exam: deferred Final Diagnosis/Problem List - Final Discharge Diagnosis/Problem (1) Physical debility Current Visit: Yes Status: Acute - Discharge Discharge Date: 08/29/17 Disposition: Home, Self-Care Condition: Stable Prescriptions: No Action Lorazepam 0.5 mg [Ativan 0.5 MG] 1 - 2 tab PO HS Multivitamin [Multivitamins] 1 each PO DAILY Aspirin 81 mg PO HS Calcium Carb/Magnesium Oxid/D3 [Calcium Magnesium + D Tablet] 1 each PO LUNCH Celecoxib [Celebrex] 200 mg PO LUNCH Ropinirole 2Mg [Requip 2Mg Tab] 2 mg PO HS Gabapentin [Neurontin] 300 mg PO BID Estrogens,Conjugated [Premarin] 0.625 mg PO DAILY Rabeprazole Sodium [Aciphex] 20 mg PO LUNCH Ipratropium/Albuterol Sulfate [Combivent Inhaler] 14.7 gm IH TID Albuterol 2.5 mg/3 ml Neb [Proventil 2.5 mg/3 ml Neb] 2.5 mg IH QID Gemfibrozil 600 mg [Lopid 600 mg] 600 mg PO BID Hydrocodone Bitartrate [Zohydro ER] 15 mg PO BID Amlodipine Besylate/Benazepril [Lotrel 10-20 mg Capsule] 1 each PO DAILY Vitamin B Complex [B Complex] 1 each PO DAILY Biotin 1 mg PO HS Tizanidine HCl 4 mg [Zanaflex 4 MG] 4 mg PO HS PRN PRN Reason: Pain Guaifenesin/Dextromethorphan [Mucinex Dm ER 1,200-60 mg Tab] 1 each PO DAILY Simvastatin [Zocor] 5 mg PO DAILY Methylcellulose [Citrucel] 500 mg PO DAILY PRN PRN Reason: Constipation Potassium Chloride 10 Meq Tab* [Klor Con 10 MEQ] 1 tab PO DAILY Warfarin Sodium 2.5 mg [Coumadin 2.5 MG] 2.5 mg PO DAILY Nystatin Powder 15 gm [Nystop Powder 15 gm] 15 gm TP TID Diclofenac Sodium Gel [Voltaren GEL] 100 gm TP BID PRN PRN Reason: Pain Hydrocodone Bit/Acetaminophen [Sasabe 7.5-325 Tablet] 1 each PO Q4H PRN PRN Reason: Pain Metoprolol Succinate 25 mg Xl* [Toprol-Xl 25MG Tablets] 25 mg PO BID Dextran 70/Hypromellose [Moisture Eyes Protect Drops] 2 drop IU QID PRN PRN Reason: Agitation Follow up with: LAKSHMI GARCIA [Primary Care Provider] - 09/03/17 1:45 pm ANDREA RODRÍGUEZ [ACTIVE STAFF] - 09/02/17 3:45 pm
[2017-08-29 12:50] VITALS: PULSE 84; O2SAT 95
[2017-08-31] MEDS ORDERED: Aplisol ID SCH (10:00)
== END 2017-08-29 13:50 | disposition home health service (06) | DRG 948 ==
LOC: OBSVTOIN 15:57 → MED SURG 15:57
PROVIDERS: ADMIT General Practice; ATTEND General Practice
DX: R53.81 Other malaise (principal); R53.1 Weakness; M50.30 Other cervical disc degeneration, unspecified cervical region; I11.0 Hypertensive heart disease with heart failure; I50.9 Heart failure, unspecified; I27.20 Pulmonary hypertension, unspecified; J45.909 Unspecified asthma, uncomplicated; E78.5 Hyperlipidemia, unspecified; R09.02 Hypoxemia; E87.5 Hyperkalemia; I25.10 Atherosclerotic heart disease of native coronary artery without angina pectoris; M47.894 Other spondylosis, thoracic region; M51.36 Other intervertebral disc degeneration, lumbar region; F41.9 Anxiety disorder, unspecified; M48.02 Spinal stenosis, cervical region; M48.061 Spinal stenosis, lumbar region without neurogenic claudication; E78.00 Pure hypercholesterolemia, unspecified; J44.9 Chronic obstructive pulmonary disease, unspecified; M19.90 Unspecified osteoarthritis, unspecified site; R13.10 Dysphagia, unspecified; Z79.01 Long term (current) use of anticoagulants; Z79.899 Other long term (current) drug therapy
CPT/HCPCS: 36415; 36600; 80053; 82375; 82803; 83735; 84443; 85027; 85610; 86340; 87631; 87651; 94640; 94760; J7609; 97110-GP; A9270-GY

== ENCOUNTER 2017-11-09 16:30 | Emergency (ER) | payer MEDICARE, OTHER ==
[2017-11-09 16:53] VITALS: BP 124/70; PULSE 65; O2SAT 93
--- NOTE | 2017-11-09 16:59 | ERPHSYRPT ---
- History of Present Illness Time Seen by Provider: 11/09/17 16:53 Source: patient Exam Limitations: no limitations Patient Subjective Stated Complaint: states has tender area size of a marble under right breast. has been tender for two days. denies any drainage. Triage Nursing Assessment: marble size red raised area noted under right breast. no drainage noted. Physician History: The patient is a 77-year-old female with her complaining of a small abscess that has gotten worse over 2 days. This abscess is located under her right chest on the rib cage wall. She denies fever or chills. Her past medical history is significant for diverticulitis, pulmonary hypertension, COPD , CAD, and high cholesterol. Timing/Duration: yesterday, gradual onset, worse Quality: painful Severity: mild Location: torso Possible Causes: no cause identified Allergies/Adverse Reactions: ciprofloxacin [From Cipro] Allergy (Verified 11/09/17 16:53) ciprofloxacin HCl [From Cipro] Allergy (Verified 11/09/17 16:53) levofloxacin [From Levaquin] Allergy (Verified 11/09/17 16:53) Antihistamines - Alkylamine Adverse Reaction (Unknown, Verified 11/09/17 16:53) Nausea doxycycline Adverse Reaction (Unknown, Verified 11/09/17 16:53) Vomiting metronidazole Adverse Reaction (Verified 11/09/17 16:53) Nausea Home Medications: Albuterol 2.5 mg/3 ml Neb [Proventil 2.5 mg/3 ml Neb] 2.5 mg IH QID [History] Aspirin 81 mg PO HS 09/02/14 [History] Calcium Carb/Magnesium Oxid/D3 [Calcium Magnesium + D Tablet] 1 each PO LUNCH [History] Celecoxib [Celebrex] 200 mg PO LUNCH 09/02/14 [History] Estrogens,Conjugated [Premarin] 0.625 mg PO DAILY 09/02/14 [History] Gabapentin [Neurontin] 300 mg PO BID 09/02/14 [History] Ipratropium/Albuterol Sulfate [Combivent Inhaler] 14.7 gm IH TID 09/02/14 [ History] Multivitamin [Multivitamins] 1 each PO DAILY 09/02/14 [History] Rabeprazole Sodium [Aciphex] 20 mg PO LUNCH 09/02/14 [History] Ropinirole 2Mg [Requip 2Mg Tab] 2 mg PO HS 09/02/14 [History] Amlodipine Besylate/Benazepril [Lotrel 10-20 mg Capsule] 1 each PO DAILY [History] Biotin 1 mg PO HS 03/30/15 [History] Gemfibrozil 600 mg [Lopid 600 mg] 600 mg PO BID 03/30/15 [History] Hydrocodone Bitartrate [Zohydro ER] 15 mg PO BID 03/30/15 [History] Tizanidine HCl 4 mg [Zanaflex 4 MG] 4 mg PO HS PRN 03/30/15 [History] Vitamin B Complex [B Complex] 1 each PO DAILY 03/30/15 [History] Dextran 70/Hypromellose [Moisture Eyes Protect Drops] 2 drop IU QID PRN [History] Diclofenac Sodium Gel [Voltaren GEL] 100 gm TP BID PRN 08/19/17 [History] Guaifenesin/Dextromethorphan [Mucinex Dm ER 1,200-60 mg Tab] 1 each PO DAILY 05/04 [History] Hydrocodone Bit/Acetaminophen [[place] 7.5-325 Tablet] 1 each PO Q4H PRN 08/19/17 [History] Methylcellulose [Citrucel] 500 mg PO DAILY PRN 08/19/17 [History] Metoprolol Succinate 25 mg Xl* [Toprol-Xl 25MG Tablets] 25 mg PO BID [History] Nystatin Powder 15 gm [Nystop Powder 15 gm] 15 gm TP TID 08/19/17 [History ] Potassium Chloride 10 Meq Tab* [Klor Con 10 MEQ] 1 tab PO DAILY 08/19/17 [ History] Simvastatin [Zocor] 5 mg PO DAILY 08/19/17 [History] Warfarin Sodium 2.5 mg [Coumadin 2.5 MG] 2.5 mg PO DAILY 08/19/17 [History ] Hx Tetanus, Diphtheria Vaccination/Date Given: No (2008) Hx Influenza Vaccination/Date Given: No Hx Pneumococcal Vaccination/Date Given: No - Review of Systems Constitutional: No Fever, No Chills Eyes: No Symptoms Ears, Nose, & Throat: No Symptoms Respiratory: No Cough, No Dyspnea Cardiac: No Chest Pain, No Edema, No Syncope Abdominal/Gastrointestinal: No Abdominal Pain, No Nausea, No Vomiting, No Diarrhea Genitourinary Symptoms: No Dysuria Musculoskeletal: No Back Pain, No Neck Pain Skin: Cellulitis Neurological: No Dizziness, No Focal Weakness, No Sensory Changes Psychological: No Symptoms Endocrine: No Symptoms Hematologic/Lymphatic: No Symptoms Immunological/Allergic: No Symptoms All Other Systems: Reviewed and Negative - Past Medical History Pertinent Past Medical History: Yes Neurological History: Migraines ENT History: Cataracts Cardiac History: Coronary Artery Disease, High Cholesterol, Hypertension Respiratory History: COPD, Other Endocrine Medical History: No Pertinent History Musculoskeletal History: Arthritis GI Medical History: Diverticulitis, GERD, Polyps History: No Pertinent History Psycho-Social History: No Pertinent History Female Reproductive Disorders: Fibroids Other Medical History: pul htn, chronic back pain - Past Surgical History Past Surgical History: Yes (hysterctomy,appendectomy,choly) Neuro Surgical History: Other Cardiac: Angioplasty Respiratory: No Pertinent History Gastrointestinal: Appendectomy, Cholecystectomy Genitourinary: No Pertinent History Musculoskeletal: Other Female Surgical History: Hysterectomy, Tubal Ligation, Other Other Surgical History: herinated disk, removal pus pocket to left breast, steroid to right shoulder; tonsillectomy - Social History Smoking Status: Never smoker Exposure to second hand smoke: No Alcohol Use: None Drug Use: none Patient Lives Alone: No Significant Family History: heart disease, diabetes, other - Female History Hx Now: No - Nursing Vital Signs Nursing Vital Signs: Initial Vital Signs Temperature 98.4 F 11/09/17 16:33 Pulse Rate 65 11/09/17 16:33 Respiratory Rate 16 11/09/17 16:33 Blood Pressure 124/70 11/09/17 16:33 O2 Sat by Pulse Oximetry 93 L 11/09/17 16:33 Pain Scale Pain Intensity 7 - Physical Exam General Appearance: no apparent distress, alert Eye Exam: PERRL/EOMI, eyes nml inspection Ears, Nose, Throat Exam: normal ENT inspection, pharynx normal, moist mucous membranes Neck Exam: normal inspection, non-tender, supple, full range of motion Respiratory Exam: normal breath sounds, lungs clear, No respiratory distress Cardiovascular Exam: regular rate/rhythm, normal heart sounds Gastrointestinal/Abdomen Exam: soft, mass, No tenderness Pelvic Exam: not done Rectal Exam: not done Back Exam: normal inspection, normal range of motion, No CVA tenderness, No vertebral tenderness Extremity Exam: normal inspection, normal range of motion Neurologic Exam: alert, oriented x 3, cooperative, normal mood/affect, sensation nml, No motor deficits Skin Exam: other (small red early abscess of 0.5 cm on right anterior chest wall under breast without fluctuation.) SpO2 Interpretation: normal SpO2: 93 Oxygen Delivery: Nasal Cannula - Departure Time of Disposition: 16:56 Departure Disposition: Home Clinical Impression: Abscess Condition: Stable Critical Care Time: No Referrals: LAKSHMI GARCIA [Primary Care Provider] - Additional Instructions: You have an early abscess that is forming on your right chest area. It was not ready to be lanced and drained today. Take clindamycin 300 mg 4 times a day for 10 days. Apply warm compresses to the area for 10 minutes at a time, 3 times a day for 2-3 days. If the abscess worsens over the next 2 days, follow- up with your primary medical doctor. Prescriptions: Clindamycin HCl 1 cap PO QID #40 capsule
== END 2017-11-09 17:07 | disposition home or self-care (01) ==
LOC: ED 16:30
DX: L02.213 Cutaneous abscess of chest wall (principal); Z79.01 Long term (current) use of anticoagulants; Z79.82 Long term (current) use of aspirin; Z79.899 Other long term (current) drug therapy
CPT/HCPCS: 99283

== ENCOUNTER 2018-01-21 17:19 | Emergency (ER) | payer MEDICARE, OTHER ==
--- NOTE | 2018-01-21 19:40 | ERPHSYRPT ---
- History of Present Illness Time Seen by Provider: 01/21/18 19:31 Source: patient Exam Limitations: no limitations Patient Subjective Stated Complaint: Fell as she was getting out of bed on Friday and landed on knees and her left shoulder and then her butt, shoulder and knees now hurt Triage Nursing Assessment: Pt reports that she fell as she was getting out of bed on Friday and landed on her knees and left shoulder and then her butt, shoulder and knees now hurt, left knee has some swelling and mild bruising, pt unable to get around like before fall, pulses normal, vitals wnl Physician History: This is a 77-year-old white female who apparently walked in complaining of pain in bilateral knees and her left shoulder as well as her low back symptoms since Friday. Patient apparently fell landing on her knees and then her bottom. She complains of pain in her left shoulder bilateral knees and low back. 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 Past medical history includes migraines, cataracts, COPD, coronary artery disease, high blood pressure, hypercholesterolemia, GERD, polyps, fibroids, arthritis, chronic back pain Past surgical history includes hysterectomy, angioplasty, appendectomy, cholecystectomy, tubal ligation, herniated disks, apparently she had a possible pocket on her left breast, she's had problems with her left shoulder before and a tonsillectomy and adenoidectomy Occurred: days ago (2 days ago) Reason for Fall: lost balance Injuries/Pain Location: upper extremity (left shoulder), back, lower extremity ( bilateral knees) Loss of Consciousness: no loss of consciousness Quality: aching Severity of Pain-Max: moderate Severity of Pain-Current: moderate Modifying Factors: Improves With: other (patient sees pain numerical control operator is on chronic analgesia) Allergies/Adverse Reactions: ciprofloxacin [From Cipro] Allergy (Verified 01/21/18 17:59) ciprofloxacin HCl [From Cipro] Allergy (Verified 01/21/18 17:59) levofloxacin [From Levaquin] Allergy (Verified 01/21/18 17:59) Antihistamines - Alkylamine Adverse Reaction (Unknown, Verified 01/21/18 17:59) Nausea doxycycline Adverse Reaction (Unknown, Verified 01/21/18 17:59) Vomiting metronidazole Adverse Reaction (Verified 01/21/18 17:59) Nausea Home Medications: Albuterol 2.5 mg/3 ml Neb [Proventil 2.5 mg/3 ml Neb] 2.5 mg IH QID [History] Aspirin 81 mg PO HS 09/02/14 [History] Calcium Carb/Magnesium Oxid/D3 [Calcium Magnesium + D Tablet] 1 each PO LUNCH [History] Celecoxib [Celebrex] 200 mg PO LUNCH 09/02/14 [History] Estrogens,Conjugated [Premarin] 0.625 mg PO DAILY 09/02/14 [History] Gabapentin [Neurontin] 300 mg PO BID 09/02/14 [History] Ropinirole 2Mg [Requip 2Mg Tab] 2 mg PO HS 09/02/14 [History] Biotin 1 mg PO HS 03/30/15 [History] Gemfibrozil 600 mg [Lopid 600 mg] 600 mg PO BID 03/30/15 [History] Hydrocodone Bitartrate [Zohydro ER] 15 mg PO BID 03/30/15 [History] Vitamin B Complex [B Complex] 1 each PO DAILY 03/30/15 [History] Guaifenesin/Dextromethorphan [Mucinex Dm ER 1,200-60 mg Tab] 1 each PO DAILY 05/04 [History] Hydrocodone Bit/Acetaminophen [Cambria 7.5-325 Tablet] 1 each PO Q4H PRN 08/19/17 [History] Metoprolol Succinate 25 mg Xl* [Toprol-Xl 25MG Tablets] 25 mg PO BID [History] Simvastatin [Zocor] 5 mg PO DAILY 08/19/17 [History] Warfarin Sodium 2.5 mg [Coumadin 2.5 MG] 2.5 mg PO DAILY 08/19/17 [History ] Potassium Gluconate 99 mg PO HS 11/09/17 [History] Amlodipine Besylate/Benazepril [Lotrel 10-20 mg Capsule] 1 each PO QAM 01/21/18 [History] Hx Tetanus, Diphtheria Vaccination/Date Given: No (2008) Hx Influenza Vaccination/Date Given: No Hx Pneumococcal Vaccination/Date Given: No - Review of Systems Constitutional: No Fever, No Chills Eyes: No Symptoms Ears, Nose, & Throat: No Symptoms Respiratory: No Cough, No Dyspnea Cardiac: No Symptoms Abdominal/Gastrointestinal: No Abdominal Pain, No Nausea, No Vomiting, No Diarrhea Genitourinary Symptoms: No Dysuria Musculoskeletal: Back Pain (low back pain), Fall, Joint Pain (left shoulder pain , bilateral knee pain) Skin: No Rash Neurological: No Dizziness, No Focal Weakness, No Sensory Changes Psychological: No Symptoms Endocrine: No Symptoms All Other Systems: Reviewed and Negative - Past Medical History Pertinent Past Medical History: Yes Neurological History: Migraines ENT History: Cataracts Cardiac History: Coronary Artery Disease, High Cholesterol, Hypertension Respiratory History: COPD, Other Endocrine Medical History: No Pertinent History Musculoskeletal History: Arthritis GI Medical History: Diverticulitis, GERD, Polyps History: No Pertinent History Psycho-Social History: No Pertinent History Female Reproductive Disorders: Fibroids Other Medical History: pul htn, chronic back pain - Past Surgical History Past Surgical History: Yes (hysterctomy,appendectomy,choly) Neuro Surgical History: Other Cardiac: Angioplasty Respiratory: No Pertinent History Gastrointestinal: Appendectomy, Cholecystectomy Genitourinary: No Pertinent History Musculoskeletal: Other Female Surgical History: Hysterectomy, Tubal Ligation, Other Other Surgical History: herinated disk, removal pus pocket to left breast, steroid to right shoulder; tonsillectomy - Social History Smoking Status: Never smoker Exposure to second hand smoke: No Alcohol Use: None Drug Use: none Patient Lives Alone: No Significant Family History: heart disease, diabetes, other - Female History Hx Now: No - Nursing Vital Signs Nursing Vital Signs: Initial Vital Signs Temperature 97.7 F 01/21/18 17:47 Pulse Rate 66 01/21/18 17:47 Blood Pressure 103/57 01/21/18 17:47 O2 Sat by Pulse Oximetry 97 01/21/18 17:47 Pain Scale Pain Intensity 6 - Geary Coma Score Best Eye Response (Geary): (4) open spontaneously Best Verbal Response (Toño): (5) oriented Best Motor Response (Toño): (6) obeys commands Toño Total: 15 - Physical Exam General Appearance: mild distress Head Injury: no evidence of injury Eye Exam: PERRL/EOMI ENT Exam: airway nml Neck Exam: full range of motion, normal inspection, No tenderness Respiratory/Chest Exam: normal breath sounds, No chest tenderness, No respiratory distress Cardiovascular Exam: normal heart sounds, regular rate/rhythm, normal peripheral pulses, No murmur Gastrointestinal Exam: soft Back Exam: other (Pain with palpation and movement low lumbar region) Extremity Exam: other (Pain with palpation bilateral knees anteriorly, left shoulder with movement and palpation) Peripheral Pulses: dorsalis-pedis (R): 2+, dorsalis-pedis (L): 2+ Neurologic Exam: alert, oriented x 3, cooperative, slurry control operator helper II-XII nml as tested, sensation nml, No motor deficits Skin Exam: normal color, warm, dry SpO2 Interpretation: normal (97%) SpO2: 97 Oxygen Delivery: Room Air - Course Nursing assessment & vital signs reviewed: Yes - Radiology Exams Left Knee X-ray Interpretation: Interpreted by me (chronic degenerative changes) Right Knee X-ray Interpretation: Interpreted by me (chronic degenerrative changes) Left Shoulder X-ray Interpretation: Interpreted by me (no fractures no subluxation) L-Spine X-ray Interpretation: Interpreted by me (chronic degenerative changes) Ordered Tests: Active Orders 24 hr Category Date Time Status Bedrest with BRP/BSC ROUTINE Activity 01/21/18 20:17 Active Call Admit Doctor for Orders ON ADMISSION Care 01/21/18 20:17 Active Code Status Order ROUTINE Care 01/21/18 20:17 Active IV Care Q6H Care 01/21/18 20:17 Active Neuro Checks Q4H Care 01/21/18 20:17 Active Weight,Daily 0600 Care 01/21/18 20:17 Active Cardiac Diet Diet 01/21/18 Breakfast Active KNEE (3 VIEWS) Stat Exams 01/21/18 18:57 Taken KNEE (3 VIEWS) Stat Exams 01/21/18 18:57 Taken LUMBAR LIMITED (2 OR 3 VIEWS) Stat Exams 01/21/18 18:57 Taken SHOULDER Stat Exams 01/21/18 18:57 Taken CBC W DIFF AM.LAB Lab 01/22/18 04:00 Ordered CMP AM.LAB Lab 01/22/18 04:00 Ordered Pulse Oximetry CONTINUOUS RT 01/21/18 20:17 Active Transfer Order Routine Transfer 01/21/18 Completed Medication Summary Generic Name Dose Route Start Last Admin Trade Name Freq PRN Reason Stop Dose Admin Hydrocodone Bitart/Acetaminophen 1 tab 01/21/18 20:17 Cambria 7.5/325 Mg Tab PO 01/26/18 20:16 QID PRN PRN PAIN - Progress Progress: improved Progress Note: 01/21/18 19:56 This is a 77-year-old white female with history of migraines, cataracts, COPD, coronary disease, high blood pressure, hypercholesterolemia, GERD, polyps, fibroids, arthritis, high blood pressure, chronic back pain. Patient fell 2 days ago she is brought by her family who states she is unable to ambulate she complains of pain in her left shoulder pain bilateral knees and pain in her low back. Patient with stable vital signs patient with the x-rays of her lumbar spine, bilateral knees which show what appears to be chronic degenerative changes she also has degenerative changes in her x-ray of her left shoulder. I do not see any acute fractures. I had offered to consider immobilizer on the left knee which is hurting the patient the most and discharge had offered a shot of morphine however patient did states she gets pain control through Dr. Christina does not really want more pain control as this is what she is taking. She does however want to be placed in a observation and begin physical therapy. I've discussed this with Dr. Maldonado she is agreeable will place patient on observation. Order physical therapy 01/21/18 20:24 I had initially offered the patient to place the left knee immobilizer on the patient's left knee and have her follow-up with her family doctor. The family had told me that they wanted the patient to be here and receive physical therapy and that she could not walk at home. I went ahead and contacted Dr. Maldonado and went ahead and obtain an observation bed for the patient with plans on patient receiving physical therapy in the hospital tomorrow with pain control tonight. Family and patient now states he wants to go home and have physical therapy at home. Will have patient return home. We'll place a left knee immobilizer on the patient. She is to place cold packs on the left knee, right knee, left shoulder 24-48 hours. She is follow-up with Dr. Maldonado. Will try to have the nurses arrange physical therapy consult with the patient otherwise she will need to follow-up with Dr. Maldonado. She was offered pain medications here in the emergency room she declined them. She does have pain medications prescribed by - Departure Time of Disposition: 19:58 Departure Disposition: Home Clinical Impression: inability to ambulate Accidental fall Qualifiers: Encounter type: initial encounter Qualified Code(s): W19.XXXA - Unspecified fall, initial encounter Low back pain Qualifiers: Chronicity: unspecified Back pain laterality: midline Sciatica presence: without sciatica Qualified Code(s): M54.5 - Low back pain Bilateral knee pain Qualifiers: Chronicity: acute Qualified Code(s): M25.561 - Pain in right knee Left shoulder pain Qualifiers: Chronicity: acute Qualified Code(s): M25.512 - Pain in left shoulder Condition: Fair Critical Care Time: No
[2018-01-21] MEDS ORDERED: NORCO 7.5/325 MG TAB PO PRN (20:17)
[2018-01-21 20:46] VITALS: BP 121/57; PULSE 62; O2SAT 98
--- NOTE | 2018-01-22 08:39 | XRAY ---
Indication: Pain following fall. Comparison: June 02, 2017. 3 views of the left knee again demonstrates moderate/advanced tricompartmental degenerative changes, tibial tubercle spurring, and posterior fabella. No new/acute findings.
--- NOTE | 2018-01-22 08:39 | XRAY ---
Indication: Pain following fall. Comparison: June 02, 2017. 3 views of the right knee again demonstrates moderate/advanced tricompartmental degenerative changes. No new/acute bony, articular, or soft tissue abnormalities.
--- NOTE | 2018-01-22 08:41 | XRAY ---
Indication: Pain following fall. Comparison: None 3 views of the left shoulder demonstrates moderate degenerative arthropathy of the glenohumeral and AC joint. High riding humeral head commonly seen with rotator cuff tear. No other bony, articular, or soft tissue abnormalities.
--- NOTE | 2018-01-22 08:43 | XRAY ---
Indication: Pain following fall. Comparison: None 3 views of the lumbar spine demonstrates 5 lumbar vertebral segments with minimal levorotoscoliosis, moderate/advanced multilevel thoracolumbar degenerative spondylosis, calcified splenic granuloma, and cholecystectomy clips. No other bony, articular, or soft tissue abnormalities.
== END 2018-01-21 20:46 | disposition home or self-care (01) ==
LOC: ED 17:19 → MED SURG 20:10 → UNDOADMOB 20:10
DX: R26.2 Difficulty in walking, not elsewhere classified (principal); M54.5 Low back pain; M25.562 Pain in left knee; M25.561 Pain in right knee; M25.512 Pain in left shoulder; W06.XXXA Fall from bed, initial encounter; Y92.003 Bedroom of unspecified non-institutional (private) residence as the place of occurrence of the external cause; Z79.01 Long term (current) use of anticoagulants; Z79.899 Other long term (current) drug therapy
CPT/HCPCS: 72100; 73030; 73562; 99283; L1830

== ENCOUNTER 2018-03-31 12:00 | Observation (INO) | payer MEDICARE, OTHER ==
[2018-03-31 13:35] LABS: Appearance CLOUDY (CLEAR); Bacteria PACKED /HPF (NEGATIVE); Bilirubin NEGATIVE (NEGATIVE); Blood NEGATIVE Ery/ul (0-5); Epithelial Cells RARE /HPF (FEW); Glucose NEGATIVE (NEGATIVE); Ketones NEGATIVE (NEGATIVE); Leukocyte Esterase NEGATIVE (NEGATIVE); Mucus SLIGHT /HPF (NEGATIVE); Nitrite NEGATIVE (NEGATIVE); Protein,Urine Dip NEGATIVE (Negative); RBC 0-2 /HPF (0-2); Specific Gravity 1.018 (1.005-1.025); Urobilinogen NEGATIVE mg/dL (0-1)
--- NOTE | 2018-03-31 14:05 | XRAY ---
Indication: Right lateral leg weakness, greater on right. Comparison: January 21, 2018. 5 views of the lumbar spine unchanged again demonstrating mild levoscoliosis, moderate/advanced multilevel thoracolumbar degenerative spondylosis, mild aortic calcifications, calcified splenic granulomas, and cholecystectomy clips. Moderate right hip degenerative arthropathy not previously imaged. No new/acute findings.
--- NOTE | 2018-03-31 14:07 | XRAY ---
Indication: Arm weakness. Comparison: None 6 views of the cervical spine demonstrates moderate/advanced C3-C7 degenerative disc disease as evidenced by disc space loss and endplate sclerosis/spurring. Subsequent bilateral foraminal stenosis same levels. No acute fracture, subluxation, or soft tissue abnormalities.
[2018-03-31 14:08] LABS: BASOPHIL % 0.3 % (0.0-0.4); Basophil (Absolute #) 0.03 (0-0.4); Eosinophil % 3.3 % (0.00-5.0); Eosinophil (Absolute #) 0.31 (0-0.5); Granulocyte Absolute (ANC) 5.14 (1.4-6.9); Granulocytes % 53.9 % (36.0-66.0); Hemoglobin 12.9 gm/dl (12.0-16.0); Lymphocyte (Absolute #) 3.15 (1.0-4.6); Lymphocytes % 33.1 % (24.0-44.0); Mean Cell Volume 97.3 fl (78-100); Mean Corpuscular Hgb Concent. 33.1 g/dl (32-36); Mean Platelet Volume 10.5 fl (6-9.5); Monocytes % 9.4 % (0.0-12.0); Platelet Count 247 K/mm3 (150-450); Red Blood Count 4.01 M/mm3 (4.1-5.4); Red Cell Distribution Width 13.9 % (11.5-14.0); White Blood Count 9.5 K/mm3 (4.0-10.5)
[2018-03-31 14:19] LABS: ALBUMIN 4.3 g/dL (3.5-5.0); ALKALINE PHOSPHATASE 56 U/L (38-126); ANION GAP 14.8 MEQ/L (5-15); BLOOD UREA NITROGEN 20 mg/dL (7-17); CHLORIDE 104 mmol/L (98-107); Calcium 9.5 mg/dL (8.4-10.2); Carbon Dioxide 24 mmol/L (22-30); Creatinine 1 0.84 mg/dL (0.52-1.04); Glucose 106 mg/dL (74-106); Potassium 4.4 mmol/L (3.5-5.1); SGOT/AST 30 U/L (14-36); SGPT/ALT 21 U/L (0-35); SODIUM 138 mmol/L (137-145); Total Protein 7.2 g/dL (6.3-8.2)
[2018-03-31 14:44] LABS: Mean Corpuscular Hemoglobin 32.1 pg (26-32)
--- NOTE | 2018-03-31 17:35 | ERPHSYRPT ---
- History of Present Illness Source: patient Exam Limitations: no limitations Patient Subjective Stated Complaint: at the Dr. Jackson to get sinvasc ( lubricant) injections to bilat knees. Dr Jackson and Dr Garcia spoke on the phone and advised to come to the ER d/t increase weakness in left arm, numbness in toes. states was able to lift arm above her head and now unable to lift arm. states functional status has declined at home. now using 2 people with extensive assist for transfers d/t increasing weakness of knees and hip pain. was able to walk across room (25 feet) about 2 weeks ago now just pivoting transfers. Triage Nursing Assessment: Pt A/O, speech clear, resp easy, clear breath sounds. brought in by ambulance. skin pink, warm, and dry. Physician History: Pt is a 78 y/o female that came to the ER from docs office. She received knee injections today, but secondary to her weakness in ambulation, and UEs, she was referred to the ER for work up. Pt states, not able to elevate her arms, can't do any ADLs. She is not able to ambulate, and is very anxious. Timing/Duration: week(s) Severity: moderate Associated Symptoms: denies symptoms Allergies/Adverse Reactions: ciprofloxacin [From Cipro] Allergy (Verified 01/21/18 17:59) ciprofloxacin HCl [From Cipro] Allergy (Verified 01/21/18 17:59) levofloxacin [From Levaquin] Allergy (Verified 01/21/18 17:59) Antihistamines - Alkylamine Adverse Reaction (Unknown, Verified 01/21/18 17:59) Nausea doxycycline Adverse Reaction (Unknown, Verified 01/21/18 17:59) Vomiting metronidazole Adverse Reaction (Verified 01/21/18 17:59) Nausea Home Medications: Albuterol 2.5 mg/3 ml Neb [Proventil 2.5 mg/3 ml Neb] 2.5 mg IH QID [History] Aspirin 81 mg PO HS 09/02/14 [History] Calcium Carb/Magnesium Oxid/D3 [Calcium Magnesium + D Tablet] 1 each PO LUNCH [History] Celecoxib [Celebrex] 200 mg PO LUNCH 09/02/14 [History] Estrogens,Conjugated [Premarin] 0.625 mg PO DAILY 09/02/14 [History] Gabapentin [Neurontin] 300 mg PO BID 09/02/14 [History] Ropinirole 2Mg [Requip 2Mg Tab] 2 mg PO HS 09/02/14 [History] Biotin 1 mg PO HS 03/30/15 [History] Gemfibrozil 600 mg [Lopid 600 mg] 600 mg PO BID 03/30/15 [History] Hydrocodone Bitartrate [Zohydro ER] 15 mg PO BID 03/30/15 [History] Vitamin B Complex [B Complex] 1 each PO DAILY 03/30/15 [History] Guaifenesin/Dextromethorphan [Mucinex Dm ER 1,200-60 mg Tab] 1 each PO DAILY 05/04 [History] Hydrocodone Bit/Acetaminophen [[place] 7.5-325 Tablet] 1 each PO Q4H PRN 08/19/17 [History] Metoprolol Succinate 25 mg Xl* [Toprol-Xl 25MG Tablets] 25 mg PO BID [History] Simvastatin [Zocor] 5 mg PO DAILY 08/19/17 [History] Warfarin Sodium 2.5 mg [Coumadin 2.5 MG] 2.5 mg PO DAILY 08/19/17 [History ] Potassium Gluconate 99 mg PO HS 11/09/17 [History] Amlodipine Besylate/Benazepril [Lotrel 10-20 mg Capsule] 1 each PO QAM 01/21/18 [History] Hx Tetanus, Diphtheria Vaccination/Date Given: No (2008) Hx Influenza Vaccination/Date Given: No Hx Pneumococcal Vaccination/Date Given: No Immunizations Up to Date: Yes - Review of Systems Constitutional: Fatigue, Lethargy Eyes: No Symptoms Ears, Nose, & Throat: No Symptoms Respiratory: No Cough, No Dyspnea Cardiac: No Chest Pain, No Edema, No Syncope Abdominal/Gastrointestinal: No Abdominal Pain, No Nausea, No Vomiting, No Diarrhea Genitourinary Symptoms: No Dysuria Musculoskeletal: Arthralgias, Myalgias Neurological: Focal Weakness, Gait Changes - Past Medical History Pertinent Past Medical History: Yes Neurological History: Migraines ENT History: Cataracts Cardiac History: Coronary Artery Disease, High Cholesterol, Hypertension Respiratory History: COPD, Other Endocrine Medical History: No Pertinent History Musculoskeletal History: Arthritis GI Medical History: Diverticulitis, GERD, Polyps History: No Pertinent History Psycho-Social History: No Pertinent History Female Reproductive Disorders: Fibroids Other Medical History: pul htn, chronic back pain - Past Surgical History Past Surgical History: Yes (hysterctomy,appendectomy,choly) Neuro Surgical History: Other Cardiac: Angioplasty Respiratory: No Pertinent History Gastrointestinal: Appendectomy, Cholecystectomy Genitourinary: No Pertinent History Musculoskeletal: Other Female Surgical History: Hysterectomy, Tubal Ligation, Other Other Surgical History: herinated disk, removal pus pocket to left breast, steroid to right shoulder; tonsillectomy - Social History Smoking Status: Never smoker Exposure to second hand smoke: No Alcohol Use: None Drug Use: none Patient Lives Alone: No Significant Family History: heart disease, diabetes, other - Nursing Vital Signs Nursing Vital Signs: Initial Vital Signs Temperature 98.4 F 03/31/18 12:00 Pulse Rate 62 03/31/18 12:00 Blood Pressure 115/60 03/31/18 12:00 O2 Sat by Pulse Oximetry 97 03/31/18 12:00 Pain Scale Pain Intensity 0 - Physical Exam General Appearance: moderate distress Eye Exam: PERRL/EOMI, eyes nml inspection Ears, Nose, Throat Exam: normal ENT inspection, TMs normal, pharynx normal, moist mucous membranes Neck Exam: normal inspection, non-tender, supple, full range of motion Respiratory Exam: normal breath sounds, lungs clear, No respiratory distress Cardiovascular Exam: regular rate/rhythm, normal heart sounds, normal peripheral pulses Gastrointestinal/Abdomen Exam: soft, normal bowel sounds, No tenderness, No mass Extremity Exam: limited range of motion, pedal edema Neurologic Exam: alert, oriented x 3, 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, depressed mood/ affect, motor weakness, abnormal gait SpO2: 98 - Course Nursing assessment & vital signs reviewed: Yes - CT Exams 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) Ordered Tests: Active Orders 24 hr Category Date Time Status CERVICAL SPINE MINIMUM 4 VIEWS Stat Exams 03/31/18 12:43 Completed LUMBAR COMPLETE (MIN 4 VIEWS) Stat Exams 03/31/18 12:43 Completed CBC W DIFF Stat Lab 03/31/18 14:00 Completed CK (IN-HOUSE) [CK-Creatinine Phosphokinase] Stat Lab 03/31/18 13:45 Completed CMP Stat Lab 03/31/18 14:00 Completed CULTURE,URINE Stat Lab 03/31/18 12:42 Received ESR [Erythrocyte Sedimentation Rate] Stat Lab 03/31/18 14:00 Completed Lactic Acid Stat Lab 03/31/18 13:53 Completed RA FACTOR [RHEUMATOID FACTOR] Stat Lab 03/31/18 14:00 Completed UA W/RFX UR CULTURE Stat Lab 03/31/18 12:42 Completed Lab/Rad Data: Laboratory Result Diagrams 03/31/18 14:00 03/31/18 14:00 Laboratory Results 03/31/18 03/31/18 03/31/18 Range/Units 14:00 14:00 14:00 WBC (4.0-10.5) K/mm3 RBC (4.1-5.4) M/mm3 Hgb (12.0-16.0) gm/dl Hct (35-47) % MCV (78-100) fl MCH (26-32) pg MCHC (32-36) g/dl RDW (11.5-14.0) % Plt Count (150-450) K/mm3 MPV (6-9.5) fl Gran % (36.0-66.0) % Eos # (Auto) (0-0.5) Absolute Lymphs (auto) (1.0-4.6) Absolute Monos (auto) (0.0-1.3) Lymphocytes % (24.0-44.0) % Monocytes % (0.0-12.0) % Eosinophils % (0.00-5.0) % Basophils % (0.0-0.4) % Absolute Granulocytes (1.4-6.9) Basophils # (0-0.4) ESR 11 (0-20) mm/hr Sodium 138 (137-145) mmol/L Potassium 4.4 (3.5-5.1) mmol/L Chloride 104 (98-107) mmol/L Carbon Dioxide 24 (22-30) mmol/L Anion Gap 14.8 (5-15) MEQ/L BUN 20 H (7-17) mg/dL Creatinine 0.84 (0.52-1.04) mg/dL Estimated GFR > 60.0 ML/MIN Glucose 106 (74-106) mg/dL Lactic Acid (0.4-2.0) Calcium 9.5 (8.4-10.2) mg/dL Total Bilirubin 0.50 (0.2-1.3) mg/dL AST 30 (14-36) U/L ALT 21 (0-35) U/L Alkaline Phosphatase 56 (38-126) U/L Creatine Kinase (30-135) U/L Serum Total Protein 7.2 (6.3-8.2) g/dL Albumin 4.3 (3.5-5.0) g/dL Urine Color (YELLOW) Urine Appearance (CLEAR) Urine pH (5-6) Ur Specific [place] (1.005-1.025) Urine Protein (Negative) Urine Ketones (NEGATIVE) Urine Blood (0-5) Luis/ul Urine Nitrite (NEGATIVE) Urine Bilirubin (NEGATIVE) Urine Urobilinogen (0-1) mg/dL Ur Leukocyte Esterase (NEGATIVE) Urine WBC (Auto) (0-5) /HPF Urine RBC (Auto) (0-2) /HPF U Epithel Cells (Auto) (FEW) /HPF Urine Bacteria (Auto) (NEGATIVE) /HPF Urine Mucus (Auto) (NEGATIVE) /HPF Urine Culture Reflexed (NO) Urine Glucose (NEGATIVE) mg/dL Rheumatoid Factor Scrn POSITIVE (Negative) 03/31/18 03/31/18 03/31/18 Range/Units 14:00 13:53 13:45 WBC 9.5 (4.0-10.5) K/mm3 RBC 4.01 L (4.1-5.4) M/mm3 Hgb 12.9 (12.0-16.0) gm/dl Hct 39.0 (35-47) % MCV 97.3 (78-100) fl MCH 32.1 H (26-32) pg MCHC 33.1 (32-36) g/dl RDW 13.9 (11.5-14.0) % Plt Count 247 (150-450) K/mm3 MPV 10.5 H (6-9.5) fl Gran % 53.9 (36.0-66.0) % Eos # (Auto) 0.31 (0-0.5) Absolute Lymphs (auto) 3.15 (1.0-4.6) Absolute Monos (auto) 0.90 (0.0-1.3) Lymphocytes % 33.1 (24.0-44.0) % Monocytes % 9.4 (0.0-12.0) % Eosinophils % 3.3 (0.00-5.0) % Basophils % 0.3 (0.0-0.4) % Absolute Granulocytes 5.14 (1.4-6.9) Basophils # 0.03 (0-0.4) ESR (0-20) mm/hr Sodium (137-145) mmol/L Potassium (3.5-5.1) mmol/L Chloride (98-107) mmol/L Carbon Dioxide (22-30) mmol/L Anion Gap (5-15) MEQ/L BUN (7-17) mg/dL Creatinine (0.52-1.04) mg/dL Estimated GFR ML/MIN Glucose (74-106) mg/dL Lactic Acid 1.2 (0.4-2.0) Calcium (8.4-10.2) mg/dL Total Bilirubin (0.2-1.3) mg/dL AST (14-36) U/L ALT (0-35) U/L Alkaline Phosphatase (38-126) U/L Creatine Kinase 45 (30-135) U/L Serum Total Protein (6.3-8.2) g/dL Albumin (3.5-5.0) g/dL Urine Color (YELLOW) Urine Appearance (CLEAR) Urine pH (5-6) Ur Specific [place] (1.005-1.025) Urine Protein (Negative) Urine Ketones (NEGATIVE) Urine Blood (0-5) Luis/ul Urine Nitrite (NEGATIVE) Urine Bilirubin (NEGATIVE) Urine Urobilinogen (0-1) mg/dL Ur Leukocyte Esterase (NEGATIVE) Urine WBC (Auto) (0-5) /HPF Urine RBC (Auto) (0-2) /HPF U Epithel Cells (Auto) (FEW) /HPF Urine Bacteria (Auto) (NEGATIVE) /HPF Urine Mucus (Auto) (NEGATIVE) /HPF Urine Culture Reflexed (NO) Urine Glucose (NEGATIVE) mg/dL Rheumatoid Factor Scrn (Negative) 03/31/18 Range/Units 12:42 WBC (4.0-10.5) K/mm3 RBC (4.1-5.4) M/mm3 Hgb (12.0-16.0) gm/dl Hct (35-47) % MCV (78-100) fl MCH (26-32) pg MCHC (32-36) g/dl RDW (11.5-14.0) % Plt Count (150-450) K/mm3 MPV (6-9.5) fl Gran % (36.0-66.0) % Eos # (Auto) (0-0.5) Absolute Lymphs (auto) (1.0-4.6) Absolute Monos (auto) (0.0-1.3) Lymphocytes % (24.0-44.0) % Monocytes % (0.0-12.0) % Eosinophils % (0.00-5.0) % Basophils % (0.0-0.4) % Absolute Granulocytes (1.4-6.9) Basophils # (0-0.4) ESR (0-20) mm/hr Sodium (137-145) mmol/L Potassium (3.5-5.1) mmol/L Chloride (98-107) mmol/L Carbon Dioxide (22-30) mmol/L Anion Gap (5-15) MEQ/L BUN (7-17) mg/dL Creatinine (0.52-1.04) mg/dL Estimated GFR ML/MIN Glucose (74-106) mg/dL Lactic Acid (0.4-2.0) Calcium (8.4-10.2) mg/dL Total Bilirubin (0.2-1.3) mg/dL AST (14-36) U/L ALT (0-35) U/L Alkaline Phosphatase (38-126) U/L Creatine Kinase (30-135) U/L Serum Total Protein (6.3-8.2) g/dL Albumin (3.5-5.0) g/dL Urine Color [place] (YELLOW) Urine Appearance CLOUDY (CLEAR) Urine pH 5.0 (5-6) Ur Specific [place] 1.018 (1.005-1.025) Urine Protein NEGATIVE (Negative) Urine Ketones NEGATIVE (NEGATIVE) Urine Blood NEGATIVE (0-5) Luis/ul Urine Nitrite NEGATIVE (NEGATIVE) Urine Bilirubin NEGATIVE (NEGATIVE) Urine Urobilinogen NEGATIVE (0-1) mg/dL Ur Leukocyte Esterase NEGATIVE (NEGATIVE) Urine WBC (Auto) 11-15 (0-5) /HPF Urine RBC (Auto) 0-2 (0-2) /HPF U Epithel Cells (Auto) RARE (FEW) /HPF Urine Bacteria (Auto) PACKED (NEGATIVE) /HPF Urine Mucus (Auto) SLIGHT (NEGATIVE) /HPF Urine Culture Reflexed YES (NO) Urine Glucose NEGATIVE (NEGATIVE) mg/dL Rheumatoid Factor Scrn (Negative) - Progress Progress: unchanged Progress Note: Pt was evaluated and labs were done. She dose have DDD. Her labs were normal beside the elevated RF. CK was normal, ESR was normal as well. I did talk to pt's PCP, that will admit pt, and will be evaluated by PT and OT for placement. 03/31/18 17:48 Discussed with : Shagufta Garcia Will see patient in: hospital (full admit) - Departure Time of Disposition: 17:51 Departure Disposition: In-patient Admission Clinical Impression: Weakness Condition: Stable Critical Care Time: No Referrals: LAKSHMI GARCIA [Primary Care Provider] -
[2018-03-31] MEDS ORDERED: Zofran 4 MG/2 ML VIAL IV PRN (17:53)
[2018-03-31] MEDS ORDERED: NovoLOG Insulin SQ PRN (17:53)
[2018-03-31] MEDS ORDERED: TYLENOL 325 MG PO PRN (17:53)
[2018-03-31] MEDS ORDERED: MORPHINE SULFATE 2 MG INJ IV PRN (17:53)
[2018-03-31] MEDS ORDERED: PROVENTIL 2.5 MG/3 ML NEB IH PRN (17:53)
[2018-03-31] MEDS: Toprol-Xl 25MG Tablets PO SCH ×2 (20:25→23:50)
[2018-03-31] MEDS: NYSTOP POWDER 15 GM TP SCH (21:58)
[2018-03-31] MEDS: REQUIP 2MG TAB PO SCH (21:58)
[2018-03-31] MEDS: ECOTRIN 81 MG PO SCH (21:58)
[2018-03-31] MEDS: NEURONTIN 300 MG PO SCH (21:58)
[2018-03-31] MEDS ORDERED: Zocor 10MG PO SCH (22:00)
[2018-03-31] MEDS ORDERED: NORCO 7.5/325 MG TAB PO PRN (22:00)
[2018-03-31] MEDS ORDERED: Voltaren GEL TOP PRN (22:00)
[2018-04-01] MEDS: LOPID 600 MG PO SCH ×3 (02:07→22:06)
[2018-04-01 05:39] LABS: BASOPHIL % 0.3 % (0.0-0.4); Basophil (Absolute #) 0.03 (0-0.4); Eosinophil (Absolute #) 0.36 (0-0.5); Granulocyte Absolute (ANC) 4.81 (1.4-6.9); Granulocytes % 54.2 % (36.0-66.0); Hematocrit 36.6 % (35-47); Lymphocyte (Absolute #) 2.86 (1.0-4.6); Lymphocytes % 32.2 % (24.0-44.0); Mean Cell Volume 97.3 fl (78-100); Mean Corpuscular Hemoglobin 31.9 pg (26-32); Mean Corpuscular Hgb Concent. 32.8 g/dl (32-36); Mean Platelet Volume 10.3 fl (6-9.5); Monocyte (Absolute #) 0.83 (0.0-1.3); Monocytes % 9.3 % (0.0-12.0); Platelet Count 236 K/mm3 (150-450); Red Blood Count 3.76 M/mm3 (4.1-5.4); Red Cell Distribution Width 14.1 % (11.5-14.0); White Blood Count 8.9 K/mm3 (4.0-10.5)
[2018-04-01 05:55] LABS: ANION GAP 12.4 MEQ/L (5-15); BLOOD UREA NITROGEN 20 mg/dL (7-17); CHLORIDE 105 mmol/L (98-107); Calcium 8.9 mg/dL (8.4-10.2); Carbon Dioxide 24 mmol/L (22-30); Creatinine 1 0.78 mg/dL (0.52-1.04); Glucose 106 mg/dL (74-106); Potassium 4.1 mmol/L (3.5-5.1); SODIUM 137 mmol/L (137-145)
[2018-04-01 06:29] LABS: INR 4.16 (0.8-3.0); PROTIME 49.1 SECONDS (9.95-12.35)
[2018-04-01] MEDS ORDERED: CARBOXYMETHYLCELLULOSE SODIUM OP PRN (07:09)
[2018-04-01] MEDS ORDERED: [UNRECOGNIZED DRUG - OTHER] PO PRN (07:09)
[2018-04-01] MEDS ORDERED: METHYLCELLULOSE 500 MG PO PRN (07:09)
[2018-04-01] MEDS: PROVENTIL 2.5 MG/3 ML NEB IH SCH ×2 (07:20→20:20)
[2018-04-01] MEDS ORDERED: Artificial Tears 15 ML OP PRN (07:24)
[2018-04-01] MEDS ORDERED: Metamucil PACKET PO PRN (07:27)
[2018-04-01] MEDS ORDERED: HYDROCODONE BITARTRATE PO SCH (10:00)
[2018-04-01] MEDS ORDERED: VITAMIN B COMPLEX PO SCH (10:00)
[2018-04-01] MEDS ORDERED: NON-FORMULARY ITEM (Amlodipine Besylate/Benazepril [Lotrel 10-20 Mg Capsule] 1 EACH) PO SCH (10:00)
[2018-04-01] MEDS: Toprol-Xl 25MG Tablets PO SCH ×2 (10:09→22:06)
[2018-04-01] MEDS: Lotrel 5/10 MG PO SCH (10:09)
[2018-04-01] MEDS: NEURONTIN 300 MG PO SCH ×2 (10:10→22:06)
[2018-04-01] MEDS: Aldactone 25 MG PO SCH (10:10)
[2018-04-01] MEDS: PATIENT OWN MEDICATION PO SCH ×2 (10:12→21:57)
[2018-04-01] MEDS: NYSTOP POWDER 15 GM TP SCH ×2 (10:12→22:10)
[2018-04-01] MEDS: PREMARIN PO SCH (10:12)
[2018-04-01] MEDS: VITA-BEE WITH C PO SCH (10:13)
--- NOTE | 2018-04-01 10:18 | XRAY ---
Indication: Left-sided weakness. Possible stroke. Multiple contiguous axial images obtained through the head without contrast. Comparison: August 22, 2017. Stable age-appropriate global atrophy and minimal periventricular degenerative micro-ischemia. No acute intracranial hemorrhage, abnormal extra-axial fluid collection, or mass effect. Fourth ventricle is midline without hydrocephalus. Bony calvarium intact. Visualized paranasal sinuses and mastoid air cells are clear. Impression: Stable nonacute senile brain. MRI brain may yield further information if there remains further clinical concern. CT DI 66.90
[2018-04-01] MEDS ORDERED: NON-FORMULARY ITEM (Multivitamin [Multi-Vitamin Daily] 1 EACH) PO SCH (12:00)
[2018-04-01] MEDS ORDERED: [UNRECOGNIZED DRUG - OTHER] PO SCH (12:00)
[2018-04-01] MEDS ORDERED: NON-FORMULARY ITEM (Celecoxib [Celebrex] 200 MG) PO SCH (12:00)
[2018-04-01] MEDS ORDERED: GUAIFENESIN PO SCH (12:00)
[2018-04-01] MEDS ORDERED: DEXTROMETHORPHAN PO SCH (12:00)
--- NOTE | 2018-04-01 12:17 | PCM.HP ---
History of Present Illness - Chief Complaint Chief Complaint: WEAKNESS for few weeks History of Present Illness: is a 78 year old female.at the Dr. Jackson to get sinvasc (lubricant) injections to bilat knees. Dr Jackson and Dr Maldonado spoke on the phone and advised to come to the ER d/t increase weakness in left arm, numbness in toes. states was able to lift arm above her head and now unable to lift arm. states functional status has declined at home. now using 2 people with extensive assist for transfers d/t increasing weakness of knees and hip pain. was able to walk across room (25 feet) about 2 weeks ago now just pivoting transfers. - Review of Systems Constitutional: No Fever, No Chills Eyes: No Symptoms Ears, Nose, & Throat: No Symptoms Respiratory: No Cough, No Short Of Breath Cardiac: No Chest Pain, No Edema, No Syncope Abdominal/Gastrointestinal: No Abdominal Pain, No Nausea, No Vomiting, No Diarrhea Genitourinary Symptoms: No Dysuria Musculoskeletal: No Back Pain, No Neck Pain Skin: No Rash Neurological: No Dizziness, No Focal Weakness, No Sensory Changes Psychological: No Symptoms Endocrine: No Symptoms Hematologic/Lymphatic: No Symptoms Immunological/Allergic: No Symptoms Medications & Allergies Home Medications: Home Medication List Albuterol 2.5 mg/3 ml Neb [Proventil 2.5 mg/3 ml Neb] 2.5 mg IH QID [History Confirmed 03/31/18] Aspirin 81 mg PO HS 09/02/14 [History Confirmed 03/31/18] Celecoxib [Celebrex] 200 mg PO LUNCH 09/02/14 [History Confirmed 03/31/18] Estrogens,Conjugated [Premarin] 0.625 mg PO DAILY 09/02/14 [History Confirmed ] Gabapentin [Neurontin] 300 mg PO BID 09/02/14 [History Confirmed 03/31/18] Ropinirole 2Mg [Requip 2Mg Tab] 2 mg PO HS 09/02/14 [History Confirmed 02/04] Biotin 1 mg PO EVENING MEAL 03/30/15 [History Confirmed 03/31/18] Gemfibrozil 600 mg [Lopid 600 mg] 600 mg PO BID 03/30/15 [History Confirmed 03/31/18] Hydrocodone Bitartrate [Zohydro ER] 15 mg PO BID 03/30/15 [History Confirmed 02/04] Vitamin B Complex [B Complex] 1 each PO DAILY 03/30/15 [History Confirmed ] Guaifenesin/Dextromethorphan [Mucinex Dm ER 1,200-60 mg Tab] 1 each PO LUNCH 05/04 [History Confirmed 03/31/18] Hydrocodone Bit/Acetaminophen [Guy 7.5-325 Tablet] 1 each PO Q4H PRN 08/19/17 [History Confirmed 03/31/18] Metoprolol Succinate 25 mg Xl* [Toprol-Xl 25MG Tablets] 25 mg PO BID [History Confirmed 03/31/18] Simvastatin [Zocor] 5 mg PO EVENING MEAL 08/19/17 [History Confirmed 03/31/18] Warfarin Sodium 2.5 mg [Coumadin 2.5 MG] 2.5 mg PO EVENING MEAL 08/19/17 [ History Confirmed 03/31/18] Spironolactone 25 mg [Aldactone 25 MG] 25 mg PO DAILY #30 tablet 08/29/17 [Rx Confirmed 03/31/18] Amlodipine Besylate/Benazepril [Lotrel 10-20 mg Capsule] 1 each PO QAM 01/21/18 [History Confirmed 03/31/18] Carboxymethylcellulose Sodium [Thera Tears] 2 drop OP UD PRN 03/31/18 [History Confirmed 03/31/18] Diclofenac Sodium Gel [Voltaren GEL] 1,400 gm TOP BID PRN 03/31/18 [ History Confirmed 03/31/18] Methylcellulose (with Sugar) [Citrucel Clear-Mix Powder] 500 mg PO DAILY PRN PRN 03/31/18 [History Confirmed 03/31/18] Multivitamin [Multi-Vitamin Daily] 1 each PO LUNCH 03/31/18 [History Confirmed 03/31/18] Nystatin Powder 15 gm [Nystop Powder 15 gm] 15 gm TOP TID PRN 03/31/18 [ History Confirmed 03/31/18] Potassium Chloride 10 Meq Tab* [Klor Con 10 MEQ] 1 tab PO LUNCH 03/31/18 [ History Confirmed 03/31/18] Allergies/Adverse Reactions: Allergies Allergy/AdvReac Type Severity Reaction Status Date / Time ciprofloxacin [From Cipro] Allergy Verified 01/21/18 17:59 ciprofloxacin HCl Allergy Verified 01/21/18 17:59 [From Cipro] levofloxacin [From Levaquin] Allergy Verified 01/21/18 17:59 morphine Allergy Verified 03/31/18 18:41 Antihistamines - Alkylamine AdvReac Unknown Nausea Verified 01/21/18 17:59 doxycycline AdvReac Unknown Vomiting Verified 01/21/18 17:59 metronidazole AdvReac Nausea Verified 01/21/18 17:59 - Past Medical History Past Medical History: Yes Neurological History: Migraines ENT History: Cataracts Cardiac History: Coronary Artery Disease, High Cholesterol, Hypertension Respiratory History: COPD, Other Endocrine Medical History: No Pertinent History Musculoskelatal History: Arthritis GI Medical History: Diverticulitis, GERD, Polyps History: No Pertinent History Pyscho-Social History: No Pertinent History Reproductive Disorders: Fibroids Comment: pul htn, chronic back pain - Female History Are you now?: No - Past Surgical History Past Surgical History: Yes (hysterctomy,appendectomy,choly) Neuro Surgical History: Other Cardiac History: Angioplasty Respiratory Surgery: No Pertinent History GI Surgical History: Appendectomy, Cholecystectomy Genitourinary Surgical Hx: No Pertinent History Musculskeletal Surgical Hx: Other Female Surgical History: Hysterectomy, Tubal Ligation, Other Other Surgical History: herinated disk, removal pus pocket to left breast, steroid to right shoulder; tonsillectomy - Social History Smoking Status: Never smoker Exposure to second hand smoke: No Alcohol: None Drug Use: none Significant Family History: heart disease, diabetes, other - Physical Exam Vital Signs: Vital Signs - 24 hr Temp Pulse Resp BP Pulse Ox 04/01/18 11:39 70 16 95 04/01/18 07:29 98.4 F 93 H 18 145/64 93 L 04/01/18 07:00 83 20 93 L 04/01/18 04:00 97.8 F 79 18 134/61 95 04/01/18 03:23 75 18 128/78 98 04/01/18 00:00 97.9 F 73 20 108/51 94 L 03/31/18 20:11 95 03/31/18 17:52 98 03/31/18 17:30 65 121/74 98 03/31/18 16:40 65 131/68 98 03/31/18 15:50 65 131/68 98 03/31/18 15:40 64 130/67 98 03/31/18 14:50 98.4 F 64 129/67 98 03/31/18 14:40 64 142/68 98 03/31/18 13:50 64 16 117/54 97 03/31/18 13:40 210 H 16 94/69 98 03/31/18 12:50 98.4 F 62 18 110/70 97 Oxygen-Last 24 hours O2 Percentage 3 Liters = 32% O2 Percentage 3 Liters = 32% O2 Percentage 2 Liters = 28% O2 Percentage 3 Liters = 32% Oxygen Flowrate (L/min)-RT 2 General Appearance: lethargy Neurologic Exam: alert, oriented x 3, cooperative, normal mood/affect, nml cerebellar function, nml station & gait, sensation nml, No motor deficits Eye Exam: PERRL/EOMI, eyes nml inspection Ears, Nose, Throat Exam: normal ENT inspection, TMs normal, pharynx normal, moist mucous membranes Neck Exam: normal inspection, non-tender, supple, full range of motion Respiratory Exam: normal breath sounds, lungs clear, No respiratory distress Cardiovascular Exam: regular rate/rhythm, normal heart sounds, normal peripheral pulses Gastrointestinal/Abdomen Exam: soft, normal bowel sounds, No tenderness, No mass Back Exam: normal inspection, normal range of motion, No CVA tenderness, No vertebral tenderness Extremity Exam: normal inspection, normal range of motion, pelvis stable Skin Exam: normal color, warm, dry, No rash Lymphatic Exam: No adenopathy Results - Labs Lab/Micro Results: Accuchecks Date 03/31/18 Time 22:00 Accucheck Value: 106 Accucheck Value: 139 Lab Results-Last 24 Hours 03/31/18 03/31/18 03/31/18 Range/Units 12:42 13:45 13:53 WBC (4.0-10.5) K/mm3 RBC (4.1-5.4) M/mm3 Hgb (12.0-16.0) gm/dl Hct (35-47) % MCV (78-100) fl MCH (26-32) pg MCHC (32-36) g/dl RDW (11.5-14.0) % Plt Count (150-450) K/mm3 MPV (6-9.5) fl Gran % (36.0-66.0) % Eos # (Auto) (0-0.5) Absolute Lymphs (auto) (1.0-4.6) Absolute Monos (auto) (0.0-1.3) Lymphocytes % (24.0-44.0) % Monocytes % (0.0-12.0) % Eosinophils % (0.00-5.0) % Basophils % (0.0-0.4) % Absolute Granulocytes (1.4-6.9) Basophils # (0-0.4) ESR (0-20) mm/hr PT (9.95-12.35) SECONDS INR (0.8-3.0) Sodium (137-145) mmol/L Potassium (3.5-5.1) mmol/L Chloride (98-107) mmol/L Carbon Dioxide (22-30) mmol/L Anion Gap (5-15) MEQ/L BUN (7-17) mg/dL Creatinine (0.52-1.04) mg/dL Estimated GFR ML/MIN Glucose (74-106) mg/dL Hemoglobin A1c (4.5-6.0) % Lactic Acid 1.2 (0.4-2.0) Calcium (8.4-10.2) mg/dL Total Bilirubin (0.2-1.3) mg/dL AST (14-36) U/L ALT (0-35) U/L Alkaline Phosphatase (38-126) U/L Creatine Kinase 45 (30-135) U/L Serum Total Protein (6.3-8.2) g/dL Albumin (3.5-5.0) g/dL Urine Color [place] (YELLOW) Urine Appearance CLOUDY (CLEAR) Urine pH 5.0 (5-6) Ur Specific [place] 1.018 (1.005-1.025) Urine Protein NEGATIVE (Negative) Urine Ketones NEGATIVE (NEGATIVE) Urine Blood NEGATIVE (0-5) Luis/ul Urine Nitrite NEGATIVE (NEGATIVE) Urine Bilirubin NEGATIVE (NEGATIVE) Urine Urobilinogen NEGATIVE (0-1) mg/dL Ur Leukocyte Esterase NEGATIVE (NEGATIVE) Urine WBC (Auto) 11-15 (0-5) /HPF Urine RBC (Auto) 0-2 (0-2) /HPF U Epithel Cells (Auto) RARE (FEW) /HPF Urine Bacteria (Auto) PACKED (NEGATIVE) /HPF Urine Mucus (Auto) SLIGHT (NEGATIVE) /HPF Urine Culture Reflexed YES (NO) Urine Glucose NEGATIVE (NEGATIVE) mg/dL Rheumatoid Factor Scrn (Negative) 03/31/18 03/31/18 03/31/18 Range/Units 14:00 14:00 14:00 WBC 9.5 (4.0-10.5) K/mm3 RBC 4.01 L (4.1-5.4) M/mm3 Hgb 12.9 (12.0-16.0) gm/dl Hct 39.0 (35-47) % MCV 97.3 (78-100) fl MCH 32.1 H (26-32) pg MCHC 33.1 (32-36) g/dl RDW 13.9 (11.5-14.0) % Plt Count 247 (150-450) K/mm3 MPV 10.5 H (6-9.5) fl Gran % 53.9 (36.0-66.0) % Eos # (Auto) 0.31 (0-0.5) Absolute Lymphs (auto) 3.15 (1.0-4.6) Absolute Monos (auto) 0.90 (0.0-1.3) Lymphocytes % 33.1 (24.0-44.0) % Monocytes % 9.4 (0.0-12.0) % Eosinophils % 3.3 (0.00-5.0) % Basophils % 0.3 (0.0-0.4) % Absolute Granulocytes 5.14 (1.4-6.9) Basophils # 0.03 (0-0.4) ESR 11 (0-20) mm/hr PT (9.95-12.35) SECONDS INR (0.8-3.0) Sodium 138 (137-145) mmol/L Potassium 4.4 (3.5-5.1) mmol/L Chloride 104 (98-107) mmol/L Carbon Dioxide 24 (22-30) mmol/L Anion Gap 14.8 (5-15) MEQ/L BUN 20 H (7-17) mg/dL Creatinine 0.84 (0.52-1.04) mg/dL Estimated GFR > 60.0 ML/MIN Glucose 106 (74-106) mg/dL Hemoglobin A1c (4.5-6.0) % Lactic Acid (0.4-2.0) Calcium 9.5 (8.4-10.2) mg/dL Total Bilirubin 0.50 (0.2-1.3) mg/dL AST 30 (14-36) U/L ALT 21 (0-35) U/L Alkaline Phosphatase 56 (38-126) U/L Creatine Kinase (30-135) U/L Serum Total Protein 7.2 (6.3-8.2) g/dL Albumin 4.3 (3.5-5.0) g/dL Urine Color (YELLOW) Urine Appearance (CLEAR) Urine pH (5-6) Ur Specific [place] (1.005-1.025) Urine Protein (Negative) Urine Ketones (NEGATIVE) Urine Blood (0-5) Luis/ul Urine Nitrite (NEGATIVE) Urine Bilirubin (NEGATIVE) Urine Urobilinogen (0-1) mg/dL Ur Leukocyte Esterase (NEGATIVE) Urine WBC (Auto) (0-5) /HPF Urine RBC (Auto) (0-2) /HPF U Epithel Cells (Auto) (FEW) /HPF Urine Bacteria (Auto) (NEGATIVE) /HPF Urine Mucus (Auto) (NEGATIVE) /HPF Urine Culture Reflexed (NO) Urine Glucose (NEGATIVE) mg/dL Rheumatoid Factor Scrn (Negative) 03/31/18 03/31/18 04/01/18 Range/Units 14:00 14:00 05:22 WBC 8.9 (4.0-10.5) K/mm3 RBC 3.76 L (4.1-5.4) M/mm3 Hgb 12.0 (12.0-16.0) gm/dl Hct 36.6 (35-47) % MCV 97.3 (78-100) fl MCH 31.9 (26-32) pg MCHC 32.8 (32-36) g/dl RDW 14.1 H (11.5-14.0) % Plt Count 236 (150-450) K/mm3 MPV 10.3 H (6-9.5) fl Gran % 54.2 (36.0-66.0) % Eos # (Auto) 0.36 (0-0.5) Absolute Lymphs (auto) 2.86 (1.0-4.6) Absolute Monos (auto) 0.83 (0.0-1.3) Lymphocytes % 32.2 (24.0-44.0) % Monocytes % 9.3 (0.0-12.0) % Eosinophils % 4.0 (0.00-5.0) % Basophils % 0.3 (0.0-0.4) % Absolute Granulocytes 4.81 (1.4-6.9) Basophils # 0.03 (0-0.4) ESR (0-20) mm/hr PT (9.95-12.35) SECONDS INR (0.8-3.0) Sodium (137-145) mmol/L Potassium (3.5-5.1) mmol/L Chloride (98-107) mmol/L Carbon Dioxide (22-30) mmol/L Anion Gap (5-15) MEQ/L BUN (7-17) mg/dL Creatinine (0.52-1.04) mg/dL Estimated GFR ML/MIN Glucose (74-106) mg/dL Hemoglobin A1c 5.28 (4.5-6.0) % Lactic Acid (0.4-2.0) Calcium (8.4-10.2) mg/dL Total Bilirubin (0.2-1.3) mg/dL AST (14-36) U/L ALT (0-35) U/L Alkaline Phosphatase (38-126) U/L Creatine Kinase (30-135) U/L Serum Total Protein (6.3-8.2) g/dL Albumin (3.5-5.0) g/dL Urine Color (YELLOW) Urine Appearance (CLEAR) Urine pH (5-6) Ur Specific [place] (1.005-1.025) Urine Protein (Negative) Urine Ketones (NEGATIVE) Urine Blood (0-5) Luis/ul Urine Nitrite (NEGATIVE) Urine Bilirubin (NEGATIVE) Urine Urobilinogen (0-1) mg/dL Ur Leukocyte Esterase (NEGATIVE) Urine WBC (Auto) (0-5) /HPF Urine RBC (Auto) (0-2) /HPF U Epithel Cells (Auto) (FEW) /HPF Urine Bacteria (Auto) (NEGATIVE) /HPF Urine Mucus (Auto) (NEGATIVE) /HPF Urine Culture Reflexed (NO) Urine Glucose (NEGATIVE) mg/dL Rheumatoid Factor Scrn POSITIVE (Negative) 04/01/18 04/01/18 Range/Units 05:22 05:22 WBC (4.0-10.5) K/mm3 RBC (4.1-5.4) M/mm3 Hgb (12.0-16.0) gm/dl Hct (35-47) % MCV (78-100) fl MCH (26-32) pg MCHC (32-36) g/dl RDW (11.5-14.0) % Plt Count (150-450) K/mm3 MPV (6-9.5) fl Gran % (36.0-66.0) % Eos # (Auto) (0-0.5) Absolute Lymphs (auto) (1.0-4.6) Absolute Monos (auto) (0.0-1.3) Lymphocytes % (24.0-44.0) % Monocytes % (0.0-12.0) % Eosinophils % (0.00-5.0) % Basophils % (0.0-0.4) % Absolute Granulocytes (1.4-6.9) Basophils # (0-0.4) ESR (0-20) mm/hr PT 49.1 H (9.95-12.35) SECONDS INR 4.16 H (0.8-3.0) Sodium 137 (137-145) mmol/L Potassium 4.1 (3.5-5.1) mmol/L Chloride 105 (98-107) mmol/L Carbon Dioxide 24 (22-30) mmol/L Anion Gap 12.4 (5-15) MEQ/L BUN 20 H (7-17) mg/dL Creatinine 0.78 (0.52-1.04) mg/dL Estimated GFR > 60.0 ML/MIN Glucose 106 (74-106) mg/dL Hemoglobin A1c (4.5-6.0) % Lactic Acid (0.4-2.0) Calcium 8.9 (8.4-10.2) mg/dL Total Bilirubin (0.2-1.3) mg/dL AST (14-36) U/L ALT (0-35) U/L Alkaline Phosphatase (38-126) U/L Creatine Kinase (30-135) U/L Serum Total Protein (6.3-8.2) g/dL Albumin (3.5-5.0) g/dL Urine Color (YELLOW) Urine Appearance (CLEAR) Urine pH (5-6) Ur Specific [place] (1.005-1.025) Urine Protein (Negative) Urine Ketones (NEGATIVE) Urine Blood (0-5) Luis/ul Urine Nitrite (NEGATIVE) Urine Bilirubin (NEGATIVE) Urine Urobilinogen (0-1) mg/dL Ur Leukocyte Esterase (NEGATIVE) Urine WBC (Auto) (0-5) /HPF Urine RBC (Auto) (0-2) /HPF U Epithel Cells (Auto) (FEW) /HPF Urine Bacteria (Auto) (NEGATIVE) /HPF Urine Mucus (Auto) (NEGATIVE) /HPF Urine Culture Reflexed (NO) Urine Glucose (NEGATIVE) mg/dL Rheumatoid Factor Scrn (Negative) Microbiology 03/31/18 12:42 Urine Culture - Preliminary Clean Catch Midstream GRAM NEGATIVE ID AND SENSITIVITY PENDING Accuchecks Date 03/31/18 Time 22:00 Accucheck Value: 106 Accucheck Value: 139 - Radiology Impressions Radiology Exams & Impressions: Radiology Procedures Category Date Time Status CERVICAL SPINE MINIMUM 4 VIEWS Stat Exams 03/31/18 12:43 Completed HEAD WITHOUT CONTRAST [CT] Urgent Exams 04/01/18 09:26 Completed LUMBAR COMPLETE (MIN 4 VIEWS) Stat Exams 03/31/18 12:43 Completed - Other Procedures and Tests Respiratory Therapy 03/31/18 20:11 Respiratory Therapy Assessment DAILY 04/01/18 07:00 Peak Expiratory Flow Rate DAILY 04/01/18 10:09 Oxygen NASAL CANNULA 3 lpm Assessment/Plan (1) Left shoulder pain Current Visit: No Status: Acute Qualifiers: Chronicity: acute Qualified Code(s): M25.512 - Pain in left shoulder Code(s): M25.512 - PAIN IN LEFT SHOULDER (2) Low back pain Current Visit: No Status: Acute Qualifiers: Chronicity: unspecified Back pain laterality: midline Sciatica presence: without sciatica Qualified Code(s): M54.5 - Low back pain Code(s): M54.5 - LOW BACK PAIN (3) Physical debility Current Visit: No Status: Acute Code(s): R53.81 - OTHER MALAISE
[2018-04-01] MEDS: THERAGRAN MULTIVITAMIN PO SCH (12:41)
[2018-04-01] MEDS: Klor Con 10 MEQ PO SCH (12:41)
[2018-04-01] MEDS: celeBREX 100 MG PO SCH (12:41)
[2018-04-01] MEDS ORDERED: Sodium Chloride 0.9% 1000 ML 1,000 ML IV SCH (13:30)
--- NOTE | 2018-04-01 14:46 | XRAY ---
Indication: Left-sided weakness. Two-dimensional sonogram and color Doppler imaging of the carotid arteries of the neck performed. Comparison: None Examination of the right carotid circulation demonstrates widely patent common carotid, carotid bulb, internal carotid, and external carotid arteries. PSV of the CCA is 54 cm/s. PSV of the ICA is 57 cm/s. ICA/CCA ratio is 1.0. Normal antegrade vertebral artery flow. Examination of the left carotid circulation demonstrates tortuous common carotid and internal carotid arteries. Minimal eccentric calcified plaquing at the origin of the external carotid artery. PSV of the CCA is 50 cm/s. PSV of the ICA is 53 cm/s. ICA/CCA ratio is 1.1. Normal antegrade vertebral artery flow. Impression: Minimal plaquing in the left external carotid artery and widely patent right carotid circulation. Velocity measurements and ratios are also negative for hemodynamically significant flow-limiting stenosis.
[2018-04-01] MEDS: MUCINEX DM 600/30MG PO SCH (16:58)
[2018-04-01] MEDS ORDERED: Zocor 10MG PO SCH (18:00)
[2018-04-01] MEDS ORDERED: Coumadin 2.5 MG PO SCH (20:30)
[2018-04-01] MEDS: REQUIP 2MG TAB PO SCH (22:06)
[2018-04-01] MEDS: ECOTRIN 81 MG PO SCH (22:06)
[2018-04-02] MEDS: PROVENTIL 2.5 MG/3 ML NEB IH SCH ×2 (06:54→13:30)
[2018-04-02] MEDS: Aldactone 25 MG PO SCH (08:19)
[2018-04-02] MEDS: Lotrel 5/10 MG PO SCH (08:19)
[2018-04-02] MEDS: NEURONTIN 300 MG PO SCH (08:19)
[2018-04-02] MEDS: Toprol-Xl 25MG Tablets PO SCH (08:19)
[2018-04-02] MEDS: NYSTOP POWDER 15 GM TP SCH (08:21)
[2018-04-02] MEDS: LOPID 600 MG PO SCH (08:21)
[2018-04-02] MEDS: PREMARIN PO SCH (08:22)
[2018-04-02] MEDS: VITA-BEE WITH C PO SCH (08:22)
[2018-04-02] MEDS: PATIENT OWN MEDICATION PO SCH (08:23)
[2018-04-02] MEDS: MUCINEX DM 600/30MG PO SCH (11:25)
[2018-04-02] MEDS: celeBREX 100 MG PO SCH (11:26)
[2018-04-02] MEDS: Klor Con 10 MEQ PO SCH (11:26)
[2018-04-02] MEDS: THERAGRAN MULTIVITAMIN PO SCH (11:26)
[2018-04-02 12:18] VITALS: BP 121/56; O2SAT 96
--- NOTE | 2018-04-02 13:21 | PCM.DS ---
Discharge Summary Date of Admission: 03/31/18 18:30 Admitting Physician: DEBI ROJAS Primary Care Provider: LAKSHMI GARCIA Allergies Allergies ciprofloxacin [From Cipro] Allergy (Verified 01/21/18 17:59) ciprofloxacin HCl [From Cipro] Allergy (Verified 01/21/18 17:59) levofloxacin [From Levaquin] Allergy (Verified 01/21/18 17:59) morphine Allergy (Verified 03/31/18 18:41) Antihistamines - Alkylamine Adverse Reaction (Unknown, Verified 01/21/18 17:59) Nausea doxycycline Adverse Reaction (Unknown, Verified 01/21/18 17:59) Vomiting metronidazole Adverse Reaction (Verified 01/21/18 17:59) Nausea Hospital Summary - Hospital Course Hospital Course: Chief Complaint Diagnosis WEAKNESS for few weeks Allergies Allergy/AdvReac Type Severity Reaction Status Date / Time ciprofloxacin [From Cipro] Allergy Verified 01/21/18 17:59 ciprofloxacin HCl Allergy Verified 01/21/18 17:59 [From Cipro] levofloxacin [From Levaquin] Allergy Verified 01/21/18 17:59 morphine Allergy Verified 03/31/18 18:41 Antihistamines - Alkylamine AdvReac Unknown Nausea Verified 01/21/18 17:59 doxycycline AdvReac Unknown Vomiting Verified 01/21/18 17:59 metronidazole AdvReac Nausea Verified 01/21/18 17:59 Vital Signs (Last 24 hours) Temp Pulse Resp BP Pulse Ox 04/02/18 12:00 97.7 F 80 18 121/56 96 04/02/18 08:46 72 18 95 04/02/18 07:11 98.0 F 78 20 119/59 92 L 04/02/18 03:58 98.0 F 82 17 130/63 94 L 04/01/18 23:52 97.7 F 76 20 106/56 95 04/01/18 20:20 70 12 96 04/01/18 20:00 97.6 F 74 19 112/56 96 04/01/18 16:00 98.6 F 74 18 104/51 94 L Home Medications Medication Instructions Recorded Confirmed Last Taken Type Carboxymethylcellulose Sodium 2 drop OP UD PRN 03/31/18 03/31/18 Unknown History [Thera Tears] Diclofenac Sodium Gel [Voltaren 1,400 gm TOP BID PRN 03/31/18 03/31/18 Unknown History GEL] Methylcellulose (with Sugar) 500 mg PO DAILY PRN PRN 03/31/18 03/31/18 Unknown History [Citrucel Clear-Mix Powder] Multivitamin [Multi-Vitamin Daily] 1 each PO LUNCH 03/31/18 03/31/18 03/30/18 History Nystatin Powder 15 gm [Nystop 15 gm TOP TID PRN 03/31/18 03/31/18 Unknown History Powder 15 gm] Potassium Chloride 10 Meq Tab* 1 tab PO LUNCH 03/31/18 03/31/18 03/30/18 History [Klor Con 10 MEQ] Current Medications Generic Name Dose Route Start Last Admin Trade Name Freq PRN Reason Stop Dose Admin Acetaminophen 650 mg 03/31/18 17:53 Tylenol 325 Mg PO 04/30/18 17:52 Q4H PRN PRN PAIN AND/OR FEVER Hydrocodone Bitart/Acetaminophen 1 tab 03/31/18 22:00 [place] 7.5/325 Mg Tab PO 04/05/18 21:59 Q4H PRN PRN PAIN Albuterol Sulfate 2.5 mg 03/31/18 17:53 04/01/18 11:31 Proventil 2.5 Mg/3 Ml Neb IH 04/30/18 17:52 2.5 mg Q4H PRN PRN Administration SHORTNESS OF BREATH/WHEEZING Albuterol Sulfate 2.5 mg 04/01/18 07:00 04/02/18 06:54 Proventil 2.5 Mg/3 Ml Neb IH 05/01/18 06:59 2.5 mg TIDRT [place] Administration Amlodipine/Benazepril HCl 2 cap 04/01/18 10:00 04/02/18 08:19 Lotrel 5/10 Mg PO 05/01/18 09:59 2 cap QAM [place] Administration Artificial Tears 0 ml 04/01/18 07:24 Artificial Tears 15 Ml OP 05/01/18 07:23 PRN PRN DRY EYES Aspirin 81 mg 03/31/18 22:00 04/01/18 22:06 Ecotrin 81 Mg PO 04/30/18 21:59 81 mg HS [place] Administration Celecoxib 200 mg 02/13/19 12:00 04/02/18 11:26 Celebrex 100 Mg PO 05/01/18 11:59 200 mg 1200 [place] Administration Diclofenac Sodium 0 gm 03/31/18 22:00 04/02/18 11:22 Voltaren Gel TOP 04/30/18 21:59 1 gm BID PRN PRN Administration PAIN Estrogens Conjugated 0.625 mg 04/01/18 10:00 04/02/18 08:22 Premarin PO 05/01/18 09:59 0.625 mg DAILY [place] Administration Gabapentin 300 mg 03/31/18 22:00 04/02/18 08:19 Neurontin 300 Mg PO 04/30/18 21:59 300 mg BID [place] Administration Gemfibrozil 600 mg 03/31/18 22:00 04/02/18 08:21 Lopid 600 Mg PO 04/30/18 21:59 600 mg BID [place] Administration Guaifenesin/Dextromethorphan 2 tablet 04/01/18 12:00 04/02/18 11:25 Mucinex Dm 600/30mg PO 05/01/18 11:59 2 tablet 1200 [place] Administration Sodium Chloride 1,000 mls @ 40 mls/hr 04/01/18 13:30 04/01/18 16:56 Sodium Chloride 0.9% 1000 Ml IV 05/01/18 13:29 40 mls/hr .Q24H [place] Administration Insulin Aspart 0 unit 03/31/18 17:53 Novolog Insulin SQ 04/30/18 17:52 UD PRN HYPERGLYCEMIA Metoprolol Succinate 25 mg 03/31/18 20:30 04/02/18 08:19 Toprol-Xl 25mg Tablets PO 04/30/18 20:29 25 mg BID [place] Administration Multivitamins 1 tab 04/01/18 10:00 04/02/18 08:22 Angelica-Bee With C PO 05/01/18 09:59 1 tab DAILY [place] Administration Multivitamins Therapeutic 1 tab 04/01/18 12:00 04/02/18 11:26 Theragran Multivitamin PO 05/01/18 11:59 1 tab LUNCH [place] Administration Nystatin 1 gm 03/31/18 22:00 04/02/18 08:21 Nystop Powder 15 Gm TP 04/30/18 21:59 1 gm BID [place] Administration Ondansetron HCl 4 mg 03/31/18 17:53 Zofran 4 Mg/2 Ml Vial IV 04/30/18 17:52 Q6H PRN PRN NAUSEA/VOMITING Patient Own Med: 1 each 04/01/18 10:00 04/02/18 08:23 Zohydro Er 15 Mg PO 05/01/18 09:59 1 each Tablet BID [place] Administration Potassium Chloride 10 meq 04/01/18 12:00 04/02/18 11:26 Klor Con 10 Meq PO 05/01/18 11:59 10 meq LUNCH [place] Administration Psyllium Hydrophilic Mucilloid 1 pkt 04/01/18 07:27 Metamucil Packet PO 05/01/18 07:26 DAILY PRN PRN CONSTIPATION Ropinirole HCl 2 mg 03/31/18 22:00 04/01/18 22:06 Requip 2mg Tab PO 04/30/18 21:59 2 mg HS [place] Administration Simvastatin 5 mg 04/01/18 18:00 04/01/18 16:59 Zocor 10mg PO 05/01/18 17:59 5 mg QPM@1800 [place] Administration Spironolactone 25 mg 04/01/18 10:00 04/02/18 08:19 Aldactone 25 Mg PO 05/01/18 09:59 25 mg DAILY [place] Administration Discontinued Medications Generic Name Dose Route Start Last Admin Trade Name Freq PRN Reason Stop Dose Admin Morphine Sulfate 2 mg 03/31/18 17:53 Morphine Sulfate 2 Mg Inj IV 04/05/18 17:52 Q4H PRN PRN PAIN Simvastatin 5 mg 03/31/18 22:00 03/31/18 21:58 Zocor 10mg PO 04/30/18 21:59 5 mg HS L[place] Administration Intake & Output (Last 24 hours) 03/31/18 04/01/18 04/02/18 04/03/18 11:59 11:59 11:59 11:59 Intake Total 760 2033 240 Output Total 380 1750 Balance 380 283 240 Weight 108.8 kg Microbiology Results (Last 24 hours) 03/31/18 12:42 Clean Catch Midstream Urine Culture - Final Klebsiella Pneumoniae Orders (Last 24 hours) Category Date Time Status IV Insertion Care 04/01/18 13:24 Active CAROTID BILATERAL [US] Routine Exams 04/01/18 14:27 Completed NaCl 0.9% 1000 ml [Sodium Chloride 0.9% 1000 ML] 1,000 Med 04/01/18 13:30 Active ml IV 40 mls/hr Simvastatin 10 mg [Zocor 10MG] Med 04/01/18 18:00 Active 5 mg PO QPM@1800 Patient Care Notes (Last 24 hours) 04/01/18 15:30 (created 04/02/18 12:50) Case Management Note by SultanaSarah SON VISITED WITH CASE MANAGEMENT, REPORTS THAT HE HAS CALLED PT'S SECONDARY INSURANCE AND DISCUSSED REHAB STAY WITH INSURANCE, REPORTS THAT THEY ARE REQUESTING INFORMATION TO REVIEW TO SEE IF IT WILL MEET MEDICAL NECESSITY. REPORTS THAT HE SPOKE WITH STEFANY, AND STEFANY REPORTS THAT IF IT IS DEEMED MEDICALLY NECESSARY THEN THAT INSURANCE WILL COVER REHAB VISIT. FAXED ALL INFORMATION TO [facility] [employer] AT [phone] - PER PT/FAMILY REQUEST. RECEIVED FAX CONFIRMATION OF TRANSMISSION AT [phone]. Initialized on 04/02/18 12:50 - END OF NOTE - Vitals & Intake/Output Vital Signs: Vital Signs Temperature 97.7 F 04/02/18 12:00 Pulse Rate 80 04/02/18 12:00 Respiratory Rate 18 04/02/18 12:00 Blood Pressure 121/56 04/02/18 12:00 O2 Sat by Pulse Oximetry 96 04/02/18 12:00 Oxygen-Last Documented O2 Percentage 3 Liters = 32% Intake & Output: Intake & Output 03/31/18 04/01/18 04/02/18 04/03/18 11:59 11:59 11:59 11:59 Intake Total 760 2033 240 Output Total 380 1750 Balance 380 283 240 Weight 108.8 kg - Lab Result Diagrams: 04/01/18 05:22 04/01/18 05:22 Micro Results-Entire Visit: Microbiology 03/31/18 12:42 Urine Culture - Final Clean Catch Midstream Klebsiella Pneumoniae - Radiology Exams Ordered Rad Exams-Entire Visit: Radiology Procedures Category Date Time Status CAROTID BILATERAL [US] Routine Exams 04/01/18 14:27 Completed CERVICAL SPINE MINIMUM 4 VIEWS Stat Exams 03/31/18 12:43 Completed HEAD WITHOUT CONTRAST [CT] Urgent Exams 04/01/18 09:26 Completed LUMBAR COMPLETE (MIN 4 VIEWS) Stat Exams 03/31/18 12:43 Completed - Procedures and Test Procedures and Tests throughout Hospitalization: Therapy Orders & Screens 03/31/18 20:11 Respiratory Therapy Assessment DAILY Comment: Diagnosis: weakness 04/01/18 07:00 Peak Expiratory Flow Rate DAILY Comment: Reason For Exam: Diagnosis: WEAKNESS neb [Respiratory Nebulizer] TID Comment: Diagnosis: weakness 04/01/18 09:29 PT Eval & Treat (MD Order) ROUTINE Reason for Eval:: WEAKNESS, PAIN Diagnosis: wkns 04/01/18 10:09 Oxygen NASAL CANNULA 3 lpm Comment: Diagnosis: WEAKNESS Discharge Exam General Appearance: no apparent distress, alert Neurologic Exam: alert, oriented x 3, cooperative, normal mood/affect, nml cerebellar function, sensation nml, No motor deficits Skin Exam: normal color, warm, dry Eye Exam: PERRL, EOMI, eyes nml inspection Ears, Nose, Throat Exam: normal ENT inspection, pharynx normal, moist mucous membranes Neck Exam: normal inspection, non-tender, supple, full range of motion Respiratory Exam: normal breath sounds, lungs clear, No respiratory distress Cardiovascular Exam: regular rate/rhythm, normal heart sounds Gastrointestinal/Abdomen Exam: soft, No tenderness, No mass Extremity Exam: normal inspection, normal range of motion Back Exam: normal inspection, normal range of motion, No CVA tenderness, No vertebral tenderness Pelvic Exam: deferred Rectal Exam: deferred Final Diagnosis/Problem List - Final Discharge Diagnosis/Problem (1) Weakness of left arm Current Visit: Yes Status: Acute Assessment & Plan: will get neuro consult. As we have no neurology consult, we will transfer patient to [facility] for further workup. (2) Left shoulder pain Current Visit: Yes Status: Acute (3) Low back pain Current Visit: Yes Status: Acute (4) Physical debility Current Visit: Yes Status: Acute - Discharge Discharge Date: 04/02/18 Disposition: [facility] Condition: Stable Prescriptions: Continue Aspirin 81 mg PO HS Celecoxib [Celebrex] 200 mg PO LUNCH Ropinirole 2Mg [Requip 2Mg Tab] 2 mg PO HS Gabapentin [Neurontin] 300 mg PO BID Estrogens,Conjugated [Premarin] 0.625 mg PO DAILY Albuterol 2.5 mg/3 ml Neb [Proventil 2.5 mg/3 ml Neb] 2.5 mg IH QID Gemfibrozil 600 mg [Lopid 600 mg] 600 mg PO BID Hydrocodone Bitartrate [Zohydro ER] 15 mg PO BID Vitamin B Complex [B Complex] 1 each PO DAILY Biotin 1 mg PO EVENING MEAL Guaifenesin/Dextromethorphan [Mucinex Dm ER 1,200-60 mg Tab] 1 each PO LUNCH Simvastatin [Zocor] 5 mg PO EVENING MEAL Warfarin Sodium 2.5 mg [Coumadin 2.5 MG] 2.5 mg PO EVENING MEAL Hydrocodone Bit/Acetaminophen [[place] 7.5-325 Tablet] 1 each PO Q4H PRN PRN Reason: Pain Metoprolol Succinate 25 mg Xl* [Toprol-Xl 25MG Tablets] 25 mg PO BID Spironolactone 25 mg [Aldactone 25 MG] 25 mg PO DAILY #30 tablet Amlodipine Besylate/Benazepril [Lotrel 10-20 mg Capsule] 1 each PO QAM Potassium Chloride 10 Meq Tab* [Klor Con 10 MEQ] 1 tab PO LUNCH Multivitamin [Multi-Vitamin Daily] 1 each PO LUNCH Methylcellulose (with Sugar) [Citrucel Clear-Mix Powder] 500 mg PO DAILY PRN PRN PRN Reason: Constipation Diclofenac Sodium Gel [Voltaren GEL] 1,400 gm TOP BID PRN Nystatin Powder 15 gm [Nystop Powder 15 gm] 15 gm TOP TID PRN Carboxymethylcellulose Sodium [Thera Tears] 2 drop OP UD PRN PRN Reason: dry eye Follow up with: LAKSHMI GARCIA [Primary Care Provider] - 1 Week
[2018-04-02 14:13] VITALS: PULSE 72
== END 2018-04-02 14:33 | disposition short-term general hospital (02) ==
LOC: ED 12:00 → INTOOBSV 18:30 → MED SURG 18:30
PROVIDERS: ADMIT General Practice; ATTEND General Practice
DX: M62.81 Muscle weakness (generalized) (principal); M25.512 Pain in left shoulder; M54.5 Low back pain; M79.606 Pain in leg, unspecified; R53.81 Other malaise; Z79.01 Long term (current) use of anticoagulants; Z79.899 Other long term (current) drug therapy; I10 Essential (primary) hypertension; I25.10 Atherosclerotic heart disease of native coronary artery without angina pectoris; J44.9 Chronic obstructive pulmonary disease, unspecified; M19.90 Unspecified osteoarthritis, unspecified site; K21.9 Gastro-esophageal reflux disease without esophagitis; Z86.010 Personal history of colon polyps; Z98.61 Coronary angioplasty status
CPT/HCPCS: 36415; 70450; 72050; 72110; 80048; 80053; 81001; 82550; 82962; 83036; 83605; 85025; 85610; 85652; 86430; 87077; 87086; 87186; 93880; 94150; 94640; 94760; 97161; 97530; 99285; G0378; J7609; A9270-GY

== ENCOUNTER 2019-06-16 18:39 | Emergency (ER) | payer MEDICARE, OTHER ==
[2019-06-16] MEDS ORDERED: Sodium Chloride 0.9% 1000 ML 1,000 ML ONE (19:29)
[2019-06-16] MEDS ORDERED: Sodium Chloride 0.9% 1000 ML 1,000 ML IV SCH (19:30)
[2019-06-16 20:47] LABS: Absolute Neutrophil Ct (ANC) 5.78 (1.4-6.9); BASOPHIL % 0.2 % (0.0-0.4); Basophil (Absolute #) 0.02 (0-0.4); Eosinophil % 3.8 % (0.00-5.0); Eosinophil (Absolute #) 0.36 (0-0.5); Hematocrit 40.2 % (35-47); Hemoglobin 12.9 gm/dl (12.0-16.0); Lymphocyte (Absolute #) 3.26 (1.0-4.6); Mean Cell Volume 94.1 fl (78-100); Mean Corpuscular Hemoglobin 30.2 pg (26-32); Mean Corpuscular Hgb Concent. 32.1 g/dl (32-36); Mean Platelet Volume 8.9 fl (7.5-11.0); Monocyte (Absolute #) 0.18 (0.0-1.3); Monocytes % 1.9 % (0.0-12.0); Neutrophil % 60.1 % (36.0-66.0); Platelet Count 233 K/mm3 (150-450); Red Blood Count 4.27 M/mm3 (4.1-5.4); Red Cell Distribution Width 16.7 % (11.5-14.0); White Blood Count 9.6 K/mm3 (4.0-10.5)
[2019-06-16 20:57] LABS: ALBUMIN 4.5 g/dL (3.5-5.0); ANION GAP 18.7 MEQ/L (5-15); BILIRUBIN,TOTAL 0.7 mg/dL (0.2-1.3); Calcium 10.4 mg/dL (8.4-10.2); Creatinine 1 1.1 mg/dL (0.52-1.04); Total Protein 8.5 g/dL (6.3-8.2)
[2019-06-16 21:02] LABS: Potassium 7.4 mmol/L (3.5-5.1)
[2019-06-16] MEDS ORDERED: Calcium Gluconate 10% 1000 MG IV ONE ×2 (21:20→21:24)
[2019-06-16 21:27] LABS: ANION GAP 17.7 MEQ/L (5-15); Calcium 10.6 mg/dL (8.4-10.2); Creatinine 1 1.06 mg/dL (0.52-1.04)
[2019-06-16 21:31] LABS: Potassium 7.4 mmol/L (3.5-5.1)
[2019-06-16 22:01] LABS: INR 1.07 (0.8-3.0); PROTIME 12.1 SECONDS (9.95-12.35)
[2019-06-16 22:03] LABS: PTT 37.6 SECONDS (25.3-37.0)
--- NOTE | 2019-06-16 22:16 | ERPHSYRPT ---
- History of Present Illness Time Seen by Provider: 06/16/19 19:00 Source: patient Exam Limitations: no limitations Patient Subjective Stated Complaint: Pt states "I have had a sore throat where I cannot eat much for the past couple of days. My stomach started to hurt today and I vomited 1 time and had diarrhea." Triage Nursing Assessment: Pt presented alert and oriented X 3, skin pwd Pt able to speak in clear full setnences pt in no apparent respiratory distress. pt moves all extremities. Physician History: Patient is a 79yo F who presents to ED for evaluation of sore throat and decreased PO. Symptoms started about 3 days ago and have been progressive. Patient having trouble eating and drinking but not breathing. NO fevers. Allergies/Adverse Reactions: ciprofloxacin [From Cipro] Allergy (Verified 01/21/18 17:59) ciprofloxacin HCl [From Cipro] Allergy (Verified 01/21/18 17:59) levofloxacin [From Levaquin] Allergy (Verified 01/21/18 17:59) morphine Allergy (Verified 03/31/18 18:41) Antihistamines - Alkylamine Adverse Reaction (Unknown, Verified 01/21/18 17:59) Nausea doxycycline Adverse Reaction (Unknown, Verified 01/21/18 17:59) Vomiting metronidazole Adverse Reaction (Verified 01/21/18 17:59) Nausea Home Medications: Albuterol 2.5 mg/3 ml Neb [Proventil 2.5 mg/3 ml Neb] 2.5 mg IH QID [History] Aspirin 81 mg PO HS 09/02/14 [History] Celecoxib [Celebrex] 200 mg PO LUNCH 09/02/14 [History] Estrogens,Conjugated [Premarin] 0.625 mg PO DAILY 09/02/14 [History] Gabapentin [Neurontin] 300 mg PO BID 09/02/14 [History] Ropinirole 2Mg [Requip 2Mg Tab] 2 mg PO HS 09/02/14 [History] Biotin 1 mg PO EVENING MEAL 03/30/15 [History] Gemfibrozil 600 mg [Lopid 600 mg] 600 mg PO BID 03/30/15 [History] Hydrocodone Bitartrate [Zohydro ER] 15 mg PO BID 03/30/15 [History] Vitamin B Complex [B Complex] 1 each PO DAILY 03/30/15 [History] Guaifenesin/Dextromethorphan [Mucinex Dm ER 1,200-60 mg Tab] 1 each PO LUNCH 05/04 [History] Hydrocodone Bit/Acetaminophen [[place] 7.5-325 Tablet] 1 each PO Q4H PRN 08/19/17 [History] Metoprolol Succinate 25 mg Xl* [Toprol-Xl 25MG Tablets] 25 mg PO BID [History] Simvastatin [Zocor] 5 mg PO EVENING MEAL 08/19/17 [History] Warfarin Sodium 2.5 mg [Coumadin 2.5 MG] 2.5 mg PO EVENING MEAL 08/19/17 [ History] Amlodipine Besylate/Benazepril [Lotrel 10-20 mg Capsule] 1 each PO QAM 01/21/18 [History] Carboxymethylcellulose Sodium [Thera Tears] 2 drop OP UD PRN 03/31/18 [History] Diclofenac Sodium Gel [Voltaren GEL] 1,400 gm TOP BID PRN 03/31/18 [ History] Methylcellulose (with Sugar) [Citrucel Clear-Mix Powder] 500 mg PO DAILY PRN PRN 03/31/18 [History] Multivitamin [Multi-Vitamin Daily] 1 each PO LUNCH 03/31/18 [History] Nystatin Powder 15 gm [Nystop Powder 15 gm] 15 gm TOP TID PRN 03/31/18 [ History] Potassium Chloride 10 Meq Tab* [Klor Con 10 MEQ] 1 tab PO LUNCH 03/31/18 [ History] Hx Tetanus, Diphtheria Vaccination/Date Given: No Hx Influenza Vaccination/Date Given: No Hx Pneumococcal Vaccination/Date Given: No Immunizations Up to Date: Yes Travel Risk - International Travel If Yes where:: [facility] - Coronavirus Screening Has patient experienced Coronavirus symptoms: No - Review of Systems Constitutional: No Symptoms, No Fever, No Chills Eyes: No Symptoms Ears, Nose, & Throat: No Symptoms, Throat Pain, Throat Swelling, Painful Swallowing, No Hearing Changes, No Hoarse Respiratory: No Symptoms, No Cough, No Dyspnea Cardiac: No Symptoms, No Chest Pain, No Edema, No Syncope Abdominal/Gastrointestinal: No Symptoms, No Abdominal Pain, No Nausea, No Vomiting, No Diarrhea Genitourinary Symptoms: No Symptoms, No Dysuria Musculoskeletal: No Symptoms, No Back Pain, No Neck Pain Skin: No Symptoms, No Rash Neurological: No Symptoms, No Dizziness, No Focal Weakness, No Sensory Changes Psychological: No Symptoms Endocrine: No Symptoms Hematologic/Lymphatic: No Symptoms Immunological/Allergic: No Symptoms All Other Systems: Reviewed and Negative - Past Medical History Pertinent Past Medical History: Yes Neurological History: Migraines ENT History: Cataracts Cardiac History: Coronary Artery Disease, High Cholesterol, Hypertension Respiratory History: COPD, Other Endocrine Medical History: No Pertinent History Musculoskeletal History: Arthritis GI Medical History: Diverticulitis, GERD, Polyps History: No Pertinent History Psycho-Social History: No Pertinent History Female Reproductive Disorders: Fibroids Other Medical History: pul htn, chronic back pain - Past Surgical History Past Surgical History: Yes (hysterctomy,appendectomy,choly) Neuro Surgical History: Other Cardiac: Angioplasty Respiratory: No Pertinent History Gastrointestinal: Appendectomy, Cholecystectomy Genitourinary: No Pertinent History Musculoskeletal: Other Female Surgical History: Hysterectomy, Tubal Ligation, Other Other Surgical History: herinated disk, removal pus pocket to left breast, steroid to right shoulder; tonsillectomy - Social History Smoking Status: Never smoker Exposure to second hand smoke: No Alcohol Use: None Drug Use: none Patient Lives Alone: No Significant Family History: heart disease, diabetes, other - Female History Hx Now: No - Nursing Vital Signs Nursing Vital Signs: Initial Vital Signs Temperature 98.1 F 06/16/19 18:46 Pulse Rate 98 H 06/16/19 18:46 Respiratory Rate 20 06/16/19 18:46 Blood Pressure 138/76 06/16/19 18:46 O2 Sat by Pulse Oximetry 97 06/16/19 18:46 Pain Scale Pain Intensity 0 - Physical Exam General Appearance: no apparent distress, alert Eye Exam: bilateral eye: PERRL, EOMI Ear Exam: bilateral ear: auricle normal, canal normal Nasal Exam: normal inspection Throat Exam: moist mucus membranes, No pharynx normal, No excessive drooling ( edematous and erythematous posterior pharynx. Uvula at midline), No tonsillar exudate Neck Exam: supple Cardiovascular/Respiratory Exam: normal breath sounds, regular rate/rhythm Abdominal Exam: non-tender, soft Neurologic Exam: alert, oriented x 3, sensation nml, No motor deficits Skin Exam: normal color, warm, dry SpO2 Interpretation: normal SpO2: 94 O2 Delivery: Room Air - Course Nursing assessment & vital signs reviewed: Yes EKG Interpreted by Me: RATE, Sinus Rhythm, Left Howard Deviation, NORMAL INTERVALS - CT Exams Soft Tissue Neck CT Interpretation: Tele-radiologist Report (Alveolar opacity in the left upper lobe, soft tissue densities at the right apex, possible malignancy, degenerative changes of the cervical spine, ) Ordered Tests: Active Orders 24 hr Category Date Time Status EKG-ER Only STAT Care 06/16/19 21:21 Active An [Catheter-[place] An] STAT Care 06/16/19 23:56 Active IV Insertion STAT Care 06/16/19 19:20 Active Pulse Oximetry (ED) STAT Care 06/16/19 19:20 Active CHEST 1 VIEW (PORTABLE) Stat Exams 06/17/19 00:19 Ordered NECK WITH CONTRAST [CT] Stat Exams 06/16/19 19:24 Ordered BLOOD CULTURE Stat Lab 06/16/19 20:35 Received BMP Stat Lab 06/16/19 20:35 Completed BNP [NT PRO BNP] Stat Lab 06/16/19 22:17 Completed CBC W DIFF Stat Lab 06/16/19 20:20 Completed CK (IN-HOUSE) [CK-Creatinine Phosphokinase] Stat Lab 06/16/19 20:20 Completed CMP Stat Lab 06/16/19 20:20 Completed CULTURE,URINE Stat Lab 06/17/19 00:[address] Screen Stat Lab 06/16/19 20:20 Completed PROTIME WITH INR Stat Lab 06/16/19 20:20 Completed PTT Stat Lab 06/16/19 20:20 Completed Pot [Potassium] Stat Lab 06/16/19 22:45 Completed UA W/RFX UR CULTURE Stat Lab 06/17/19 00:11 Uncollected Medication Summary Generic Name Dose Route Start Last Admin Trade Name Freq PRN Reason Stop Dose Admin Sodium Chloride 1,000 mls @ 100 mls/hr 06/16/19 19:30 06/16/19 19:31 Sodium Chloride 0.9% 1000 Ml IV 07/16/19 19:29 100 mls/hr .Q10H LEXA Administration Sodium Bicarbonate 75 meq/ 575 mls @ 75 mls/hr 06/17/19 00:30 06/17/19 00:40 Dextrose/Sodium Chloride IV 07/17/19 00:29 75 ml/hr .[id number] LEXA 75 mls/hr Administration Discontinued Medications Generic Name Dose Route Start Last Admin Trade Name Lucasq PRN Reason Stop Dose Admin Calcium Gluconate 1,000 mg 06/16/19 21:20 06/16/19 21:27 Calcium Gluconate 10% 1000 Mg IV 06/16/19 21:21 1,000 mg STAT ONE Administration Calcium Gluconate Confirm 06/16/19 21:24 Calcium Gluconate 10% 1000 Mg Administered 06/16/19 21:25 Dose 1,000 mg IV .STK-MED ONE Dextrose 50 ml 06/17/19 00:03 06/17/19 00:25 D50w 50 Ml Abboject IV 06/17/19 00:04 50 ml STAT ONE Administration Dextrose Confirm 06/17/19 00:14 D50w 50 Ml Abboject Administered 06/17/19 00:15 Dose 50 ml IV .STK-MED ONE Furosemide 20 mg 06/17/19 00:08 06/17/19 00:39 Lasix 20 Mg/2 Ml IV 06/17/19 00:09 20 mg ONCE STA Administration Dextrose/Sodium Chloride Confirm 06/17/19 00:28 Dextrose 5%-1/2ns Iv Soln. 500 Ml Administered 06/17/19 00:29 Dose 500 mls @ ud IV .STK-MED ONE Insulin Human Regular 6 unit 06/17/19 00:03 06/17/19 00:12 Humulin R IV 06/17/19 00:04 6 unit ONCE STA Administration Insulin Human Regular Confirm 06/17/19 00:12 Humulin R Administered 06/17/19 00:13 Dose 6 unit .ROUTE .STK-MED ONE Sodium Bicarbonate Confirm 06/17/19 00:23 Sodium Bicarbonate 50 Meq/50 Ml Vial Administered 06/17/19 00:24 Dose 50 meq .ROUTE .STK-MED ONE Sodium Polystyrene Sulfonate 30 g 06/17/19 00:02 06/17/19 00:15 Kayexylate 15 Gm/60 Ml PO 06/17/19 00:03 30 g STAT ONE Administration Sodium Polystyrene Sulfonate Confirm 06/17/19 00:13 Kayexylate 15 Gm/60 Ml Administered 06/17/19 00:14 Dose 30 g .ROUTE .STK-MED ONE Lab/Rad Data: Laboratory Result Diagrams 06/16/19 20:20 06/16/19 22:45 Laboratory Results 06/16/19 06/16/19 06/16/19 Range/Units 22:45 22:17 20:35 WBC (4.0-10.5) K/mm3 RBC (4.1-5.4) M/mm3 Hgb (12.0-16.0) gm/dl Hct (35-47) % MCV (78-100) fl MCH (26-32) pg MCHC (32-36) g/dl RDW (11.5-14.0) % Plt Count (150-450) K/mm3 MPV (7.5-11.0) fl Gran % (36.0-66.0) % Eos # (Auto) (0-0.5) Absolute Lymphs (auto) (1.0-4.6) Absolute Monos (auto) (0.0-1.3) Lymphocytes % (24.0-44.0) % Monocytes % (0.0-12.0) % Eosinophils % (0.00-5.0) % Basophils % (0.0-0.4) % Absolute Granulocytes (1.4-6.9) Basophils # (0-0.4) PT (9.95-12.35) SECONDS INR (0.8-3.0) APTT (25.3-37.0) SECONDS Sodium 131 L (137-145) mmol/L Potassium 7.2 H* 7.4 H* (3.5-5.1) mmol/L Chloride 100 (98-107) mmol/L Carbon Dioxide 21 L (22-30) mmol/L Anion Gap 17.7 H (5-15) MEQ/L BUN 26 H (7-17) mg/dL Creatinine 1.06 H (0.52-1.04) mg/dL Estimated GFR 53.0 ML/MIN Glucose 118 H (74-106) mg/dL Calcium 10.6 H (8.4-10.2) mg/dL Total Bilirubin (0.2-1.3) mg/dL AST (14-36) U/L ALT (0-35) U/L Alkaline Phosphatase (38-126) U/L Creatine Kinase (30-135) U/L NT-Pro-B Natriuret Pep 98.5 (0-1800) pg/mL Serum Total Protein (6.3-8.2) g/dL Albumin (3.5-5.0) g/dL Monoscreen (Negative) Group A Strep Antibody (NEGATIVE) 06/16/19 06/16/19 06/16/19 Range/Units 20:20 20:20 20:20 WBC (4.0-10.5) K/mm3 RBC (4.1-5.4) M/mm3 Hgb (12.0-16.0) gm/dl Hct (35-47) % MCV (78-100) fl MCH (26-32) pg MCHC (32-36) g/dl RDW (11.5-14.0) % Plt Count (150-450) K/mm3 MPV (7.5-11.0) fl Gran % (36.0-66.0) % Eos # (Auto) (0-0.5) Absolute Lymphs (auto) (1.0-4.6) Absolute Monos (auto) (0.0-1.3) Lymphocytes % (24.0-44.0) % Monocytes % (0.0-12.0) % Eosinophils % (0.00-5.0) % Basophils % (0.0-0.4) % Absolute Granulocytes (1.4-6.9) Basophils # (0-0.4) PT 12.1 (9.95-12.35) SECONDS INR 1.07 (0.8-3.0) APTT 37.6 H (25.3-37.0) SECONDS Sodium (137-145) mmol/L Potassium (3.5-5.1) mmol/L Chloride (98-107) mmol/L Carbon Dioxide (22-30) mmol/L Anion Gap (5-15) MEQ/L BUN (7-17) mg/dL Creatinine (0.52-1.04) mg/dL Estimated GFR ML/MIN Glucose (74-106) mg/dL Calcium (8.4-10.2) mg/dL Total Bilirubin (0.2-1.3) mg/dL AST (14-36) U/L ALT (0-35) U/L Alkaline Phosphatase (38-126) U/L Creatine Kinase 61 (30-135) U/L NT-Pro-B Natriuret Pep (0-1800) pg/mL Serum Total Protein (6.3-8.2) g/dL Albumin (3.5-5.0) g/dL Monoscreen NEGATIVE (Negative) Group A Strep Antibody (NEGATIVE) 06/16/19 06/16/19 06/16/19 Range/Units 20:20 20:20 20:20 WBC 9.6 (4.0-10.5) K/mm3 RBC 4.27 (4.1-5.4) M/mm3 Hgb 12.9 (12.0-16.0) gm/dl Hct 40.2 (35-47) % MCV 94.1 (78-100) fl MCH 30.2 (26-32) pg MCHC 32.1 (32-36) g/dl RDW 16.7 H (11.5-14.0) % Plt Count 233 (150-450) K/mm3 MPV 8.9 (7.5-11.0) fl Gran % 60.1 (36.0-66.0) % Eos # (Auto) 0.36 (0-0.5) Absolute Lymphs (auto) 3.26 (1.0-4.6) Absolute Monos (auto) 0.18 (0.0-1.3) Lymphocytes % 34.0 (24.0-44.0) % Monocytes % 1.9 (0.0-12.0) % Eosinophils % 3.8 (0.00-5.0) % Basophils % 0.2 (0.0-0.4) % Absolute Granulocytes 5.78 (1.4-6.9) Basophils # 0.02 (0-0.4) PT (9.95-12.35) SECONDS INR (0.8-3.0) APTT (25.3-37.0) SECONDS Sodium 132 L (137-145) mmol/L Potassium 7.4 H* (3.5-5.1) mmol/L Chloride 100 (98-107) mmol/L Carbon Dioxide 21 L (22-30) mmol/L Anion Gap 18.7 H (5-15) MEQ/L BUN 24 H (7-17) mg/dL Creatinine 1.10 H (0.52-1.04) mg/dL Estimated GFR 50.8 ML/MIN Glucose 120 H (74-106) mg/dL Calcium 10.4 H (8.4-10.2) mg/dL Total Bilirubin 0.70 (0.2-1.3) mg/dL AST 45 H (14-36) U/L ALT 46 H (0-35) U/L Alkaline Phosphatase 76 (38-126) U/L Creatine Kinase (30-135) U/L NT-Pro-B Natriuret Pep (0-1800) pg/mL Serum Total Protein 8.5 H (6.3-8.2) g/dL Albumin 4.5 (3.5-5.0) g/dL Monoscreen (Negative) Group A Strep Antibody NOT DETECTED (NEGATIVE) - Progress Progress: improved Progress Note: 06/17/19 00:42 Lab work up shows hyperkalemia. Normal renal function. Hyperkalemia confirmed on 3 blood draws. Patient received calcium gluconate while we were confirming findings. Patient had not urinated during her 4 hours in our ED. Urinary cathterization revealed urinary retention which may be the underlying problem causing hyperkalemia. Hyperkalemia treated with bicarb, calcium gluconate, insulin/glucose, kayexalate, lasix. Our facility does not carry veltassa or Lokelma. rapid strep and mono negative. CT shows bilateral pulmonary densities , possible lung mass/malignancy. Chest x ray ordered. Case discussed with Health. Case discussed with Dr. Molina of nephrology who accepts transfer to [facility]. He agrees with plan of care. Plan of care discussed with patient. She agrees to transfer to [facility] for further evaluation and treatment. 06/17/19 00:43 06/17/19 01:[address] Velasquez who accepts transfer to [facility]. Discussed with : Garret Counseled pt/family regarding: lab results, diagnosis, need for follow-up, rad results - Departure Departure Disposition: Transfer, Extended Care Facility Clinical Impression: Hyperkalemia, Acute urinary retention, Lung mass, Opacity of lung on imaging study, Suspected COVID-19 virus infection, UTI (urinary tract infection) Condition: Stable Critical Care Time: Yes Critical Care Time(excluding separately billable procedures): Critical 75-104 mins Referrals: JULIAN TAYLOR DO [Primary Care Provider] -
[2019-06-17] MEDS ORDERED: Kayexylate 15 GM/60 ML PO ONE (00:02)
[2019-06-17] MEDS ORDERED: D50W 50 ml Abboject IV ONE ×2 (00:03→00:14)
[2019-06-17] MEDS ORDERED: HUMULIN R IV STA (00:03)
[2019-06-17] MEDS ORDERED: Lasix 20 MG/2 ML IV STA (00:08)
[2019-06-17] MEDS ORDERED: HUMULIN R ONE (00:12)
[2019-06-17] MEDS ORDERED: Kayexylate 15 GM/60 ML ONE (00:13)
[2019-06-17] MEDS ORDERED: Sodium Bicarbonate 50 MEQ/50 ML VIAL ONE (00:23)
[2019-06-17] MEDS ORDERED: Dextrose 5%-1/2NS IV Soln. 500 ML 500 ML IV ONE (00:28)
[2019-06-17] MEDS ORDERED: Sodium Bicarbonate 50 MEQ/50 ML VIAL*** 75 MEQ in Dextrose 5%-1/2NS IV Soln. 500 ML 500 ML IV SCH (00:30)
[2019-06-17 01:16] LABS: Appearance SLIGHTLY CLOUDY (CLEAR); Bilirubin NEGATIVE (NEGATIVE); Blood NEGATIVE Ery/ul (0-5); Glucose NEGATIVE (NEGATIVE); Ketones NEGATIVE (NEGATIVE); Leukocyte Esterase NEGATIVE (NEGATIVE); Nitrite POSITIVE (NEGATIVE); Protein,Urine Dip NEGATIVE (Negative); Specific Gravity 1.012 (1.005-1.025); Urobilinogen NEGATIVE mg/dL (0-1)
[2019-06-17] MEDS ORDERED: ROCEPHIN 1 Gm-D5w 50 ml Bag** 1 G/50 ML IVPB IV STA (01:21)
[2019-06-17] MEDS ORDERED: ROCEPHIN 1 Gm-D5w 50 ml Bag** 1 G/50 ML IVPB IV ONE (01:38)
[2019-06-17 02:48] VITALS: BP 125/74; PULSE 85; O2SAT 95
--- NOTE | 2019-06-17 08:22 | XRAY ---
Indication: Difficulty swallowing. Sore throat. Abscess. Multiple contiguous axial images obtained through the neck using 80 cc Isovue 370 contrast. Comparison: None Supra and infraglottic airway widely patent. Normal epiglottis. No pathologic cervical or supraclavicular lymphadenopathy. Parotid and submandibular glands are bilaterally symmetric. Major arteries and veins are normal in course and caliber with very minimal left carotid bulb calcifications. Cervical spine intact with mild osteopenia and mild/moderate multilevel degenerative spondylosis. Lung apices demonstrates minimal/mild fibrosis/scarring, left greater than right. Base of the brain unremarkable. Impression: 1. Minimal left carotid calcifications, biapical pulmonary fibrosis/scarring, and chronic bony findings. 2. Remaining CT neck with contrast exam negative. Comment: Preliminary interpretation was made by [facility]. No critical discrepancy.
--- NOTE | 2019-06-17 08:30 | XRAY ---
Indication: Pneumonia. Comparison: September 08, 2015. Portable chest again demonstrates CT proven prominent epicardiac fat, prominent central pulmonary arteries, and left base subsegmental atelectasis. Stable left apical and mediastinal calcified granulomas. Remaining lungs clear. Heart is not enlarged for AP portable technique. Bony thorax intact again with mild osteopenia and moderate degenerative changes. Impression: Continued nonacute chest with chronic features. Comment: Preliminary interpretation was made by [facility]. No critical discrepancy
== END 2019-06-17 02:49 | disposition short-term general hospital (02) ==
LOC: ED 18:39
DX: E87.5 Hyperkalemia (principal); R33.9 Retention of urine, unspecified; R91.8 Other nonspecific abnormal finding of lung field; Z20.828 Contact with and (suspected) exposure to other viral communicable diseases; N39.0 Urinary tract infection, site not specified; R07.0 Pain in throat; E78.00 Pure hypercholesterolemia, unspecified; I25.10 Atherosclerotic heart disease of native coronary artery without angina pectoris; J44.9 Chronic obstructive pulmonary disease, unspecified; M19.90 Unspecified osteoarthritis, unspecified site; K21.9 Gastro-esophageal reflux disease without esophagitis; Z79.899 Other long term (current) drug therapy; Z79.01 Long term (current) use of anticoagulants
CPT/HCPCS: 51702; 70491; 71045; 80048; 80053; 81001; 82550; 83880; 84132; 85025; 85610; 85730; 86308; 87040; 87077; 87086; 87186; 87651; 93005; 96360; 96365; 96367; 96374; 96375; 99291; 99292; U0002; 36000; 36415; 94760; 99285; J0610; J0696; J1815; J1940; A9270-GY

== ENCOUNTER 2021-01-06 20:10 | Emergency (ER) | payer MEDICARE, OTHER ==
--- NOTE | 2021-01-06 20:37 | ERPHSYRPT ---
- History of Present Illness Time Seen by Provider: 01/06/21 20:22 Source: patient, EMS Exam Limitations: no limitations Physician History: The patient is an 80 y/o female with a pmh significant for a prior hysterectomy secondary to uterine fibriods, PE for which she is anticoagulated on apixaban and takes ASA, hx of hemorrhoids, presents with a chief complaint of possible vaginal bleeding. She reportedly noticed blood on toilet paper with wiping after urinating. Onset reportedly was yesterday. She reportedly was getting ready to go to [facility] and urinated prior to leaving and noticed blood again with wiping after urinating and noticed some blood in the toilet. She denies abdominal pain, N/V, lightheadedness, dizziness, syncope, CP, or increased dyspnea from her baseline. She denies dysuria, hesitancy, feeling of incomplete voiding, but endorsed having increased urinary frequency. Timing/Duration: yesterday Associated Symptoms: No nausea, No vomiting, No abdominal pain, No fever Allergies/Adverse Reactions: ciprofloxacin [From Cipro] Allergy (Verified 01/21/18 17:59) ciprofloxacin HCl [From Cipro] Allergy (Verified 01/21/18 17:59) levofloxacin [From Levaquin] Allergy (Verified 01/21/18 17:59) morphine Allergy (Verified 03/31/18 18:41) Antihistamines - Alkylamine Adverse Reaction (Unknown, Verified 01/21/18 17:59) Nausea doxycycline Adverse Reaction (Unknown, Verified 01/21/18 17:59) Vomiting metronidazole Adverse Reaction (Verified 01/21/18 17:59) Nausea Home Medications: Albuterol 2.5 mg/3 ml Neb [Proventil 2.5 mg/3 ml Neb] 2.5 mg IH QID 09/02/14 [History] Aspirin 81 mg PO HS 09/02/14 [History] Celecoxib [Celebrex] 200 mg PO LUNCH 09/02/14 [History] Estrogens,Conjugated [Premarin] 0.625 mg PO DAILY 09/02/14 [History] Gabapentin [Neurontin] 300 mg PO BID 09/02/14 [History] Ropinirole 2Mg [Requip 2Mg Tab] 2 mg PO HS 09/02/14 [History] Biotin 1 mg PO EVENING MEAL 03/30/15 [History] Gemfibrozil 600 mg [Lopid 600 mg] 600 mg PO BID 03/30/15 [History] Hydrocodone Bitartrate [Zohydro ER] 15 mg PO BID 03/30/15 [History] Vitamin B Complex [B Complex] 1 each PO DAILY 03/30/15 [History] Guaifenesin/Dextromethorphan [Mucinex Dm ER 1,200-60 mg Tab] 1 each PO LUNCH 08/19/17 [History] Hydrocodone Bit/Acetaminophen [[place] 7.5-325 Tablet] 1 each PO Q4H PRN 08/19/17 [History] Metoprolol Succinate 25 mg Xl* [Toprol-Xl 25MG Tablets] 25 mg PO BID 08/19/17 [History] Simvastatin [Zocor] 5 mg PO EVENING MEAL 08/19/17 [History] Warfarin Sodium 2.5 mg [Coumadin 2.5 MG] 2.5 mg PO EVENING MEAL 08/19/17 [History] Amlodipine Besylate/Benazepril [Lotrel 10-20 mg Capsule] 1 each PO QAM 01/21/18 [History] Carboxymethylcellulose Sodium [Thera Tears] 2 drop OP UD PRN 03/31/18 [History] Diclofenac Sodium Gel [Voltaren GEL] 1,400 gm TOP BID PRN 03/31/18 [History] Methylcellulose (with Sugar) [Citrucel Clear-Mix Powder] 500 mg PO DAILY PRN PRN 03/31/18 [History] Multivitamin [Multi-Vitamin Daily] 1 each PO LUNCH 03/31/18 [History] Nystatin Powder 15 gm [Nystop Powder 15 gm] 15 gm TOP TID PRN 03/31/18 [History] Potassium Chloride 10 Meq Tab* [Klor Con 10 MEQ] 1 tab PO LUNCH 03/31/18 [History] Hx Tetanus, Diphtheria Vaccination/Date Given: No Hx Influenza Vaccination/Date Given: No Hx Pneumococcal Vaccination/Date Given: No - Review of Systems Constitutional: No Fever, No Chills Respiratory: No Symptoms Cardiac: No Symptoms Abdominal/Gastrointestinal: Other (? rectal bleeding), No Nausea, No Vomiting Genitourinary Symptoms: Other (? vaginal bleeding) Musculoskeletal: No Symptoms Skin: No Symptoms Neurological: No Symptoms Psychological: No Symptoms All Other Systems: Reviewed and Negative - Past Medical History Pertinent Past Medical History: Yes Neurological History: Migraines ENT History: Cataracts Cardiac History: Coronary Artery Disease, High Cholesterol, Hypertension Respiratory History: COPD, Other Endocrine Medical History: No Pertinent History Musculoskeletal History: Arthritis GI Medical History: Diverticulitis, GERD, Polyps History: No Pertinent History Psycho-Social History: No Pertinent History Female Reproductive Disorders: Fibroids Other Medical History: pul htn, chronic back pain - Past Surgical History Past Surgical History: Yes (hysterctomy,appendectomy,choly) Neuro Surgical History: Other Cardiac: Angioplasty Respiratory: No Pertinent History Gastrointestinal: Appendectomy, Cholecystectomy Genitourinary: No Pertinent History Musculoskeletal: Other Female Surgical History: Hysterectomy, Tubal Ligation, Other Other Surgical History: herinated disk, removal pus pocket to left breast, steroid to right shoulder; tonsillectomy - Social History Smoking Status: Never smoker Exposure to second hand smoke: No Alcohol Use: None Drug Use: none Patient Lives Alone: No Significant Family History: heart disease, diabetes, other - Nursing Vital Signs Nursing Vital Signs: Initial Vital Signs Temperature 97.8 F 01/06/21 20:19 Pulse Rate 111 H 01/06/21 20:19 Respiratory Rate 18 01/06/21 20:19 Blood Pressure 126/82 01/06/21 20:19 O2 Sat by Pulse Oximetry 95 01/06/21 20:19 Pain Scale Pain Intensity 6 - Physical Exam General Appearance: no apparent distress, alert, obese Eye Exam: PERRL/EOMI Respiratory Exam: normal breath sounds, other (The patient was on supplement o xygen via NC at her baseline.) Cardiovascular Exam: regular rate/rhythm, normal heart sounds, capillary refill <2 sec, No murmur, No friction rub, No gallop Gastrointestinal/Abdomen Exam: soft, No tenderness, No mass, No guarding, No rebound Pelvic Exam: vaginal bleeding, other (The patient appeared to have an area of bleeding noted to the vaginal canal at the 12 o'clock region and 7 0'clock region. Bleeding appeared to be venous and minor without signfiicant hemorrhage. ), No cervical motion tenderness, No vaginal discharge Rectal Exam: hemorrhoids, other (No evidence of thrombosed hemorrhoids, riki blood with digital rectal exam, or anal fissure, external hemorrhoid noted. ), No normal rectal tone, No mass, No black stool, No blood, No tenderness Back Exam: normal inspection Ordered Tests: Active Orders 24 hr Category Date Time Status IV Insertion STAT Care 01/06/21 20:30 Active Pelvic Exam Assist STAT Care 01/06/21 20:30 Active BMP Stat Lab 01/06/21 20:48 Completed CBC W DIFF Stat Lab 01/06/21 20:48 Completed Lab/Rad Data: Laboratory Result Diagrams 01/06/21 20:48 01/06/21 20:48 Laboratory Results 01/06/21 01/06/21 Range/Units 20:48 20:48 WBC 12.0 H (4.0-10.5) K/mm3 RBC 4.34 (4.1-5.4) M/mm3 Hgb 13.0 (12.0-16.0) gm/dl Hct 41.1 (35-47) % MCV 94.7 (78-100) fl MCH 30.0 (26-32) pg MCHC 31.6 L (32-36) g/dl RDW 17.1 H (11.5-14.0) % Plt Count 289 (150-450) K/mm3 MPV 9.8 (7.5-11.0) fl Gran % 63.0 (36.0-66.0) % Eos # (Auto) 0.13 (0-0.5) Absolute Lymphs (auto) 3.57 (1.0-4.6) Absolute Monos (auto) 0.71 (0.0-1.3) Lymphocytes % 29.8 (24.0-44.0) % Monocytes % 5.9 (0.0-12.0) % Eosinophils % 1.1 (0.00-5.0) % Basophils % 0.2 (0.0-0.4) % Absolute Granulocytes 7.56 H (1.4-6.9) Basophils # 0.02 (0-0.4) Sodium 138 (137-145) mmol/L Potassium 3.3 L (3.5-5.1) mmol/L Chloride 98 (98-107) mmol/L Carbon Dioxide 29 (22-30) mmol/L Anion Gap 13.8 (5-15) MEQ/L BUN 23 H (7-17) mg/dL Creatinine 0.82 (0.52-1.04) mg/dL Estimated GFR > 60.0 ML/MIN Glucose 212 H (74-106) mg/dL Calcium 9.2 (8.4-10.2) mg/dL - Progress Progress: unchanged, improved Progress Note: 01/06/21 21:35 The patient's CBC on 12/26/20 had a leukocytosis with a value at 11 01/06/21 22:27 The patient appears to have some evidence of vaginal bleeding that is minor. I do not believe any additional work-up is warranted in the emergency department at this time, specifically ultrasound. If anything, this can be done as an outpatient. I instructed her to follow-up with her PCP for further evaluation and management and to inquire about the need to be referred for a biopsy to rule out any sort of malignancy. In the meantime, I have her hold her apixaban for 48 hours. She agreed with and verbally understood the discharge plan. The patient's nurse also relayed the discharge plan to the patient's daughter. Discussed with : Becca Counseled pt/family regarding: lab results, diagnosis, need for follow-up - Departure Departure Disposition: Home Clinical Impression: Vaginal bleeding, abnormal Condition: Stable Critical Care Time: No Referrals: JULIAN TAYLOR, [Primary Care Provider] - Follow up/PCP as directed Additional Instructions: Please follow-up with your primary care provider for further evaluation and management. You may need a biopsy of the affected region to rule out any malignancy/carcinoma/cancer as the cause of your vaginal bleeding. Also, please hold your Eliquis also known as apixaban for 48 hours and then resume this medication as prescribed.
[2021-01-06 20:51] LABS: Absolute Neutrophil Ct (ANC) 7.56 (1.4-6.9); BASOPHIL % 0.2 % (0.0-0.4); Basophil (Absolute #) 0.02 (0-0.4); Eosinophil % 1.1 % (0.00-5.0); Eosinophil (Absolute #) 0.13 (0-0.5); Hematocrit 41.1 % (35-47); Lymphocyte (Absolute #) 3.57 (1.0-4.6); Lymphocytes % 29.8 % (24.0-44.0); Mean Cell Volume 94.7 fl (78-100); Mean Corpuscular Hgb Concent. 31.6 g/dl (32-36); Mean Platelet Volume 9.8 fl (7.5-11.0); Monocyte (Absolute #) 0.71 (0.0-1.3); Monocytes % 5.9 % (0.0-12.0); Platelet Count 289 K/mm3 (150-450); Red Blood Count 4.34 M/mm3 (4.1-5.4); Red Cell Distribution Width 17.1 % (11.5-14.0)
[2021-01-06 21:07] LABS: ANION GAP 13.8 MEQ/L (5-15); BLOOD UREA NITROGEN 23 mg/dL (7-17); CHLORIDE 98 mmol/L (98-107); Calcium 9.2 mg/dL (8.4-10.2); Carbon Dioxide 29 mmol/L (22-30); Creatinine 1 0.82 mg/dL (0.52-1.04); EST GLOMERULAR FILTRATION RATE > 60.0 ML/MIN; Glucose 212 mg/dL (74-106); Potassium 3.3 mmol/L (3.5-5.1); SODIUM 138 mmol/L (137-145)
[2021-01-08 17:06] VITALS: BP 128/63; PULSE 82; O2SAT 93
== END 2021-01-06 22:15 | disposition home or self-care (01) ==
LOC: ED 20:10
DX: N93.9 Abnormal uterine and vaginal bleeding, unspecified (principal); Z79.01 Long term (current) use of anticoagulants; Z79.891 Long term (current) use of opiate analgesic; Z79.899 Other long term (current) drug therapy; E78.5 Hyperlipidemia, unspecified; I10 Essential (primary) hypertension
CPT/HCPCS: 36000; 36415; 80048; 85025; 99284

== ENCOUNTER 2022-03-04 18:47 | Emergency (ER) | payer MEDICARE, OTHER ==
[2022-03-04 20:35] LABS: Absolute Neutrophil Ct (ANC) 4.86 x10^3/uL (1.4-6.9); Basophil (Absolute #) 0.05 x10^3/uL (0-0.4); Eosinophil % 4.5 % (0.00-5.0); Eosinophil (Absolute #) 0.41 x10^3/uL (0-0.5); Hematocrit 37.5 % (35-47); Hemoglobin 11.9 g/dL (12.0-16.0); Lymphocyte (Absolute #) 3.22 x10^3/uL (1.0-4.6); Mean Cell Volume 94.9 fL (78-100); Mean Corpuscular Hemoglobin 30.1 pg (26-32); Mean Corpuscular Hgb Concent. 31.7 g/dL (32-36); Mean Platelet Volume 10.6 fL (7.5-11.0); Monocytes % 6.5 % (0.0-12.0); Platelet Count 180 x10^3/uL (150-450); Red Blood Count 3.95 x10^6/uL (4.1-5.4); Red Cell Distribution Width 16.8 % (11.5-14.0); White Blood Count 9.2 x10^3/uL (4.0-10.5)
--- NOTE | 2022-03-04 20:48 | ERPHSYRPT ---
- History of Present Illness Time Seen by Provider: 03/04/22 19:20 Source: patient Exam Limitations: no limitations Patient Subjective Stated Complaint: pt here for cough, congestion and swelling to lower legs and face today, Triage Nursing Assessment: pt alert, resp easy, skin w/d/p, face mask in place, has cough, slight edema to face, o2 at 3 lnc, knee braces on knees Physician History: Patient is an 82-year-old female presents to our ED with her daughter who is a nurse for evaluation of possible CHF. Daughter states patient's body has been swollen. She states her face is puffy her hands and feet are swollen as well. Patient has gained approximately 10 pounds acutely likely water weight. Daughter reports decreased urine output. No fever. No shortness of breath. No nausea vomiting or diaphoresis. No chest pain. Symptoms have been ongoing for approximately 1 to 2 days. No specific worsening or improving factors. They voiced no other complaints or concerns at this time. Portions of this note were created with voice recognition technology. There may be grammatical, spelling, punctuation or sound alike errors Severity: moderate Modifying Factors: Improves With: nothing Associated Symptoms: denies symptoms Allergies/Adverse Reactions: ciprofloxacin [From Cipro] Allergy (Verified 01/21/18 17:59) ciprofloxacin HCl [From Cipro] Allergy (Verified 01/21/18 17:59) levofloxacin [From Levaquin] Allergy (Verified 01/21/18 17:59) morphine Allergy (Verified 03/31/18 18:41) Antihistamines - Alkylamine Adverse Reaction (Unknown, Verified 01/21/18 17:59) Nausea doxycycline Adverse Reaction (Unknown, Verified 01/21/18 17:59) Vomiting metronidazole Adverse Reaction (Verified 01/21/18 17:59) Nausea Home Medications: Albuterol 2.5 mg/3 ml Neb [Proventil 2.5 mg/3 ml Neb] 2.5 mg IH QID 09/02/14 [History] Aspirin 81 mg PO HS 09/02/14 [History] Celecoxib [Celebrex] 200 mg PO LUNCH 09/02/14 [History] Estrogens, Conjugated [Premarin] 0.625 mg PO DAILY 09/02/14 [History] Gabapentin [Neurontin] 300 mg PO BID 09/02/14 [History] Ropinirole 2Mg [Requip 2Mg Tab] 2 mg PO HS 09/02/14 [History] Biotin 1 mg PO EVENING MEAL 03/30/15 [History] Gemfibrozil [Lopid] 600 mg PO BID 03/30/15 [History] Hydrocodone Bitartrate [Zohydro ER] 15 mg PO BID 03/30/15 [History] Vitamin B Complex [B Complex] 1 each PO DAILY 03/30/15 [History] Guaifenesin/Dextromethorphan [Mucinex Dm ER 1,200-60 mg Tab] 1 each PO LUNCH 08/19/17 [History] Hydrocodone/Acetaminophen [[place] 7.5-325 Tablet] 1 each PO Q4H PRN 08/19/17 [History] Metoprolol Succinate 25 mg Xl* [Toprol-Xl 25MG Tablets] 25 mg PO BID 08/19/17 [History] Simvastatin [Zocor] 5 mg PO EVENING MEAL 08/19/17 [History] Warfarin Sodium 2.5 mg [Coumadin 2.5 MG] 2.5 mg PO EVENING MEAL 08/19/17 [History] Amlodipine Besylate/Benazepril [Lotrel 10-20 mg Capsule] 1 each PO QAM 01/21/18 [History] Carboxymethylcellulose Sodium [Thera Tears] 2 drop OP UD PRN 03/31/18 [History] Diclofenac Sodium Gel [Voltaren GEL] 1,400 gm TOP BID PRN 03/31/18 [History] Methylcellulose (with Sugar) [Citrucel Clear-Mix Powder] 500 mg PO DAILY PRN PRN 03/31/18 [History] Multivitamin [Multi-Vitamin Daily] 1 each PO LUNCH 03/31/18 [History] Nystatin Powder 15 gm [Nystop Powder 15 gm] 15 gm TOP TID PRN 03/31/18 [H istory] Potassium Chloride Tab* [Klor Con] 1 tab PO LUNCH 03/31/18 [History] Hx Tetanus, Diphtheria Vaccination/Date Given: No Hx Influenza Vaccination/Date Given: No Hx Pneumococcal Vaccination/Date Given: No Immunizations Up to Date: Yes Travel Risk - International Travel Have you traveled outside of the country in past 3 weeks: No - Coronavirus Screening Are you exhibiting any of the following symptoms?: No Close contact with a COVID-19 positive Pt in past 14-21 Days: No - Vaccine Status Have you recieved a Covid-19 vaccination: Yes 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 - Vaccination Dates Date of 2cond Vaccination (if applicable): 2020 Dates if Unknown: last month - Review of Systems Constitutional: No Symptoms, No Fever, No Chills Eyes: No Symptoms Ears, Nose, & Throat: No Symptoms Respiratory: No Symptoms, No Cough, No Dyspnea Cardiac: No Symptoms, No Chest Pain, No Edema, No Syncope Abdominal/Gastrointestinal: No Symptoms, No Abdominal Pain, No Nausea, No Vomiting, No Diarrhea Genitourinary Symptoms: No Symptoms, No Dysuria Musculoskeletal: No Symptoms, No Back Pain, No Neck Pain Skin: No Symptoms, No Rash Neurological: No Symptoms, No Dizziness, No Focal Weakness, No Sensory Changes Psychological: No Symptoms Endocrine: No Symptoms Hematologic/Lymphatic: No Symptoms Immunological/Allergic: No Symptoms All Other Systems: Reviewed and Negative - Past Medical History Pertinent Past Medical History: Yes Neurological History: Migraines ENT History: Cataracts Cardiac History: Congestive Heart Failure, Coronary Artery Disease, High Cholesterol, Hypertension Respiratory History: COPD, Other Endocrine Medical History: No Pertinent History Musculoskeletal History: Arthritis GI Medical History: Diverticulitis, GERD, Polyps History: No Pertinent History Psycho-Social History: No Pertinent History Female Reproductive Disorders: Fibroids Other Medical History: pul htn, chronic back pain, auto immune disease - Past Surgical History Past Surgical History: Yes (hysterctomy,appendectomy,choly) Neuro Surgical History: Other Cardiac: Angioplasty Respiratory: No Pertinent History Gastrointestinal: Appendectomy, Cholecystectomy Genitourinary: No Pertinent History Musculoskeletal: Other Female Surgical History: Hysterectomy, Tubal Ligation, Other Other Surgical History: herinated disk, removal pus pocket to left breast, steroid to right shoulder; tonsillectomy - Social History Smoking Status: Never smoker Exposure to second hand smoke: No Alcohol Use: None Drug Use: none Patient Lives Alone: No Significant Family History: heart disease, diabetes, other - Nursing Vital Signs Nursing Vital Signs: Initial Vital Signs Pulse Rate 87 03/04/22 19:08 Respiratory Rate 14 03/04/22 19:08 Blood Pressure 142/102 03/04/22 19:08 O2 Sat by Pulse Oximetry 96 03/04/22 19:08 Pain Scale Pain Intensity 4 - Physical Exam General Appearance: no apparent distress, alert Eye Exam: PERRL/EOMI, eyes nml inspection Ears, Nose, Throat Exam: normal ENT inspection, TMs normal, pharynx normal, moist mucous membranes, other (Dry oral mucous membranes. Daughter states patient has a history of Sjogren's and feels that this is likely due to her Sjogren's condition.) Neck Exam: normal inspection, non-tender, supple, full range of motion Respiratory Exam: normal breath sounds, lungs clear, No respiratory distress Cardiovascular Exam: regular rate/rhythm, normal heart sounds, normal peripheral pulses Gastrointestinal/Abdomen Exam: soft, normal bowel sounds, No tenderness, No mass Back Exam: normal inspection, normal range of motion, No CVA tenderness, No vertebral tenderness Extremity Exam: normal inspection, normal range of motion, pelvis stable, other (2+ pitting edema bilateral lower extremities. Hands are mildly swollen. Face appears to be mildly swollen per daughter.) Neurologic Exam: alert, oriented x 3, cooperative, normal mood/affect, nml cerebellar function, nml station & gait, sensation nml, No motor deficits Skin Exam: normal color, warm, dry, No rash Lymphatic Exam: No adenopathy SpO2 Interpretation: normal SpO2: 97 O2 Delivery: Room Air - Course Nursing assessment & vital signs reviewed: Yes - Radiology Exams Chest X-ray Interpretation: Interpreted by me (Right base atelectasis. Right hilar adenopathy. Similar to previous, 06/17/2019. Left pleural effusion. Chest x- ray otherwise negative) Ordered Tests: Active Orders 24 hr Category Date Time Status Cultural Anthropology Professor STAT Care 03/04/22 20:18 Active EKG-ER Only STAT Care 03/04/22 20:16 Active Pulse Oximetry (ED) STAT Care 03/04/22 20:16 Active CHEST 1 VIEW (PORTABLE) Stat Exams 03/04/22 20:18 Taken CBC W DIFF Stat Lab 03/04/22 20:30 Completed CMP Stat Lab 03/04/22 20:30 Completed NT PRO BNP Stat Lab 03/04/22 20:30 Completed TROPONIN Q4H Lab 03/04/22 20:30 Completed TROPONIN Q4H Lab 03/05/22 00:30 Ordered TROPONIN Q4H Lab 03/05/22 04:30 Ordered TROPONIN Stat Lab 03/04/22 22:55 Completed UA W/RFX UR CULTURE Stat Lab 03/04/22 23:00 Received Lab/Rad Data: Laboratory Result Diagrams 03/04/22 20:30 03/04/22 20:30 Laboratory Results 03/04/22 03/04/22 03/04/22 Range/Units 22:55 20:30 20:30 WBC (4.0-10.5) x10^3/uL RBC (4.1-5.4) x10^6/uL Hgb (12.0-16.0) g/dL Hct (35-47) % MCV (78-100) fL MCH (26-32) pg MCHC (32-36) g/dL RDW (11.5-14.0) % Plt Count (150-450) x10^3/uL MPV (7.5-11.0) fL Gran % (36.0-66.0) % Immature Gran % (Auto) (0.00-0.4) % Nucleat RBC Rel Count (0.00-0.1) % Eos # (Auto) (0-0.5) x10^3/uL Immature Gran # (Auto) (0.00-0.03) x10^3u/L Absolute Lymphs (auto) (1.0-4.6) x10^3/uL Absolute Monos (auto) (0.0-1.3) x10^3/uL Absolute Nucleated RBC (0.00-0.01) x10^3u/L Lymphocytes % (24.0-44.0) % Monocytes % (0.0-12.0) % Eosinophils % (0.00-5.0) % Basophils % (0.0-0.4) % Absolute Granulocytes (1.4-6.9) x10^3/uL Basophils # (0-0.4) x10^3/uL Sodium 138 (137-145) mmol/L Potassium 3.7 (3.5-5.1) mmol/L Chloride 98 (98-107) mmol/L Carbon Dioxide 34 H (22-30) mmol/L Anion Gap 9.3 (5-15) MEQ/L BUN 11 (7-17) mg/dL Creatinine 0.69 (0.52-1.04) mg/dL Estimated GFR > 60.0 ML/MIN Glucose 155 H (74-106) mg/dL Calcium 8.3 L (8.4-10.2) mg/dL Total Bilirubin 0.70 (0.2-1.3) mg/dL AST 48 H (14-36) U/L ALT 28 (0-35) U/L Alkaline Phosphatase 97 (38-126) U/L Troponin I < 0.012 < 0.012 (0.000-0.034) ng/mL NT-Pro-B Natriuret Pep 261 (0-1800) pg/mL Serum Total Protein 6.5 (6.3-8.2) g/dL Albumin 3.5 (3.5-5.0) g/dL 03/04/22 Range/Units 20:30 WBC 9.2 (4.0-10.5) x10^3/uL RBC 3.95 L (4.1-5.4) x10^6/uL Hgb 11.9 L (12.0-16.0) g/dL Hct 37.5 (35-47) % MCV 94.9 (78-100) fL MCH 30.1 (26-32) pg MCHC 31.7 L (32-36) g/dL RDW 16.8 H (11.5-14.0) % Plt Count 180 (150-450) x10^3/uL MPV 10.6 (7.5-11.0) fL Gran % 53.0 (36.0-66.0) % Immature Gran % (Auto) 0.5 H (0.00-0.4) % Nucleat RBC Rel Count 0.0 (0.00-0.1) % Eos # (Auto) 0.41 (0-0.5) x10^3/uL Immature Gran # (Auto) 0.05 H (0.00-0.03) x10^3u/L Absolute Lymphs (auto) 3.22 (1.0-4.6) x10^3/uL Absolute Monos (auto) 0.60 (0.0-1.3) x10^3/uL Absolute Nucleated RBC 0.00 (0.00-0.01) x10^3u/L Lymphocytes % 35.0 (24.0-44.0) % Monocytes % 6.5 (0.0-12.0) % Eosinophils % 4.5 (0.00-5.0) % Basophils % 0.5 (0.0-0.4) % Absolute Granulocytes 4.86 (1.4-6.9) x10^3/uL Basophils # 0.05 (0-0.4) x10^3/uL Sodium (137-145) mmol/L Potassium (3.5-5.1) mmol/L Chloride (98-107) mmol/L Carbon Dioxide (22-30) mmol/L Anion Gap (5-15) MEQ/L BUN (7-17) mg/dL Creatinine (0.52-1.04) mg/dL Estimated GFR ML/MIN Glucose (74-106) mg/dL Calcium (8.4-10.2) mg/dL Total Bilirubin (0.2-1.3) mg/dL AST (14-36) U/L ALT (0-35) U/L Alkaline Phosphatase (38-126) U/L Troponin I (0.000-0.034) ng/mL NT-Pro-B Natriuret Pep (0-1800) pg/mL Serum Total Protein (6.3-8.2) g/dL Albumin (3.5-5.0) g/dL - Progress Progress: improved Progress Note: Patient is a 2-year-old female presents to the emergency department for evaluation of swelling. Daughter felt patient may have been experiencing congestive heart failure. Patient has no complaints herself. Review of systems feels 2+ pitting edema which patient states she has had in the past unclear whether this is acute versus chronic. No shortness of breath. No chest pain. No nausea vomiting or diaphoresis. Complexity of presentation is mild. Patient has history of congestive heart failure which may actively be contributing to patient's symptomology. Tests ordered include chest x-ray, CBC, CMP, BNP, troponin and urinalysis. Troponin negative x2. Unable to obtain UA. However patient has no urinary symptomology. CBC and CMP essentially unremarkable. Chest x-ray similar to previous. Results of studies were used for medical decision making. No specific medical/medicinal treatment administered as no pathology observed. No consultations. Plan of care discussed with patient and daughter. They agree to follow-up with primary care doctor within 48 hours for evaluation. Level of EM service provided was moderate. complexity of problems is moderate. Amount and complexity of data reviewed and analyzed is moderate. Risk of complications and/or risk of morbidity/mortality of patient management is minima l. No critical care time. Patient's daughter provided most of the HPI. Patient could not serve as independent historian. Patient has no complaints at this time. Patient requesting discharge. Patient presented to our ED as she thought she may be in congestive heart failure. Studies do not suggest congestive heart failure. Portions of this note were created with voice recognition technology. There may be grammatical, spelling, punctuation or sound alike errors 03/04/22 23:52 Counseled pt/family regarding: lab results, diagnosis, need for follow-up, rad results - Departure Departure Disposition: Home Clinical Impression: Encounter for medical screening examination, Swelling Condition: Stable Critical Care Time: No Referrals: JULIAN TAYLOR, [Primary Care Provider] - Follow up/PCP as directed Instructions: Dependent Edema (DC) Additional Instructions: Discharge/Care Plan KRISTALJERRI ALLEN was seen on 03/04/22 in the Emergency Room. The patient was counseled regarding Diagnosis,Lab results, Imaging studies, need for follow up and when to return to the Emergency Room. Prescriptions given: Discharge Note I have spoken with the patient and/or caregivers. I have explained the patient's condition, diagnosis and treatment plan based on the information available to me at this time. I have answered the patient's and/or caregiver's questions and addressed any concerns. The patient and/or caregivers have as good understanding of the patient's diagnosis, condition and treatment plan as can be expected at this point. The vital signs have been stable. The patient's condition is stable and appropriate for discharge from the emergency department. The patient will pursue further outpatient evaluation with the primary care physician or other designated or consulting physician as outlined in the discharge instructions. The patient and/or caregivers are agreeable to this plan of care and follow-up instructions have been explained in detail. The patient and/or caregivers have received these instruction. The patient/and or caregivers are aware that any significant change in condition or worsening of symptoms should prompt an immediate return to this or the closest emergency department or call 911.
[2022-03-04 21:02] LABS: ALBUMIN 3.5 g/dL (3.5-5.0); ALKALINE PHOSPHATASE 97 U/L (38-126); ANION GAP 9.3 MEQ/L (5-15); BLOOD UREA NITROGEN 11 mg/dL (7-17); CHLORIDE 98 mmol/L (98-107); Calcium 8.3 mg/dL (8.4-10.2); Carbon Dioxide 34 mmol/L (22-30); Creatinine 1 0.69 mg/dL (0.52-1.04); EST GLOMERULAR FILTRATION RATE > 60.0 ML/MIN; Glucose 155 mg/dL (74-106); NT PRO BNP 261 pg/mL (0-1800); Potassium 3.7 mmol/L (3.5-5.1); SGOT/AST 48 U/L (14-36); SGPT/ALT 28 U/L (0-35); SODIUM 138 mmol/L (137-145); Total Protein 6.5 g/dL (6.3-8.2)
[2022-03-04 22:40] VITALS: O2SAT 97
[2022-03-05 01:04] VITALS: BP 140/75; PULSE 78
[2022-03-05 01:06] LABS: Appearance Turbid (Clear); Bilirubin Negative (Negative); Blood Negative (Negative); Epithelial Cells Rare /HPF (None Seen); Glucose, Urine Negative (Negative); Ketones Negative (Negative); Leukocyte Esterase Large (Negative); Nitrite Positive (Negative); Ph 8.5 (4.6-8.0); Protein,Urine Dip Negative (Negative); RBC 0-2 /HPF (0-5); Urobilinogen 0.2 mg/dL (0.2)
[2022-03-05 01:07] LABS: ADD URINE CULTURE? YES (NO); Amourphous Crystal Moderate /HPF (None Seen); Bacteria Few /HPF (None Seen)
--- NOTE | 2022-03-05 08:38 | XRAY ---
Indication: Short of breath. Comparison: June 17, 2019 Portable chest demonstrates new mild right base infiltrate/atelectasis without large effusion. Remaining chest unchanged again demonstrating left base subsegmental atelectasis, bilateral hilar fullness, osteopenia, and moderate bony degenerative changes. Heart not enlarged.
== END 2022-03-05 00:08 | disposition home or self-care (01) ==
LOC: ED 18:47
DX: Z03.89 Encounter for observation for other suspected diseases and conditions ruled out (principal); N39.0 Urinary tract infection, site not specified; R60.9 Edema, unspecified; E78.5 Hyperlipidemia, unspecified; I11.0 Hypertensive heart disease with heart failure; Z79.01 Long term (current) use of anticoagulants; Z79.899 Other long term (current) drug therapy
CPT/HCPCS: 36415; 71045; 80053; 81001; 83880; 84484; 85025; 87077; 87086; 87186; 93005; 93041; 94760; 99284

== ENCOUNTER 2022-04-08 16:44 | Emergency (ER) | payer MEDICARE, OTHER ==
--- NOTE | 2022-04-08 16:49 | ERPHSYRPT ---
- History of Present Illness Time Seen by Provider: 04/08/22 16:48 Source: patient, EMS, old records Exam Limitations: clinical condition Physician History: This is an 82-year-old white female patient of Dr. Le who was brought to the emergency department by ambulance/paramedics for increasing confusion over the last 3 days. Patient is morbidly obese. She was recently diagnosed, 04/02/2022 with a urinary tract infection. Patient does take gabapentin and [place] daily. She has not hit her head per her report. She arrives vital signs stable, patient is afebrile and she is awake alert and oriented. Patient is on Coumadin. She has a history of pulmonary hypertension, CHF, coronary artery disease, hyperlipidemia, hypertension, COPD and gastroesophageal reflux disease. Patient specifically denies any type of pain at this time. Timing/Duration: day(s) (3), worse Severity: mild Character of Deficits: none Baseline/Normal Cognition: alert oriented x 3 Current Cognition: alert oriented x 3 Baseline Gait: walks only w/assistance Associated Symptoms: confusion Allergies/Adverse Reactions: ciprofloxacin [From Cipro] Allergy (Verified 04/08/22 17:19) ciprofloxacin HCl [From Cipro] Allergy (Verified 04/08/22 17:19) levofloxacin [From Levaquin] Allergy (Verified 04/08/22 17:19) morphine Allergy (Verified 04/08/22 17:19) Antihistamines - Alkylamine Adverse Reaction (Unknown, Verified 04/08/22 17:19) Nausea doxycycline Adverse Reaction (Unknown, Verified 04/08/22 17:19) Vomiting metronidazole Adverse Reaction (Verified 04/08/22 17:19) Nausea Home Medications: Hydrocodone Bitartrate [Zohydro ER] 15 mg PO BID 03/30/15 [History] Metoprolol Succinate 25 mg Xl* [Toprol-Xl 25MG Tablets] 25 mg PO BID 08/19/17 [History] Diclofenac Sodium Gel [Voltaren GEL] 1,400 gm TOP BID PRN 03/31/18 [History] Apixaban [Eliquis 5 mg Tablet] 2.5 mg PO BID 04/08/22 [History] Cyclobenzaprine HCl 10 mg [Cyclobenzaprine 10 MG] 10 mg PO Q8H 04/08/22 [History] Famotidine 20 mg [Pepcid 20 MG] 20 mg PO DAILY 04/08/22 [History] Furosemide 40 mg [Lasix 40 MG] 40 mg PO DAILY 04/08/22 [History] Gabapentin [Neurontin ] 400 mg PO TID 04/08/22 [History] Hydrocodone/Acetaminophen [Hydrocodone-Acetamin 5-325 mg] 2 tab PO DAILY 04/08/22 [History] Metformin HCl [Metformin HCl ER] 500 mg PO EVENING MEAL 04/08/22 [History] Potassium Chloride 10 meq PO DAILY 04/08/22 [History] Pramipexole Di-HCl [Mirapex] 0.75 mg PO BID 04/08/22 [History] Semaglutide [Ozempic] 0.5 mg SQ WEEKLY 04/08/22 [History] Sertraline HCl 50 mg [Zoloft 50 mg Tablet] 50 mg PO DAILY 04/08/22 [History] Tamsulosin HCl 0.4 mg [Flomax 0.4 MG] 0.4 mg PO DAILY 04/08/22 [History] metHOTREXate sodium [Methotrexate] 17.5 mg PO WEEKLY 04/08/22 [History] Hx Tetanus, Diphtheria Vaccination/Date Given: No Hx Influenza Vaccination/Date Given: No Hx Pneumococcal Vaccination/Date Given: No Travel Risk - International Travel Have you traveled outside of the country in past 3 weeks: No - Coronavirus Screening Are you exhibiting any of the following symptoms?: No Close contact with a COVID-19 positive Pt in past 14-21 Days: No - Vaccine Status Have you recieved a Covid-19 vaccination: Yes Program Engagement Director: Unknown - Vaccination Dates Date of 2cond Vaccination (if applicable): 2020 Dates if Unknown: last month - Review of Systems Constitutional: No Symptoms Eyes: No Symptoms Ears, Nose, & Throat: No Symptoms Respiratory: No Symptoms Cardiac: No Symptoms Abdominal/Gastrointestinal: No Symptoms Genitourinary Symptoms: No Symptoms Musculoskeletal: No Symptoms Skin: No Symptoms Neurological: Other (Patient sent here for increasing confusion) Psychological: No Symptoms Endocrine: No Symptoms Hematologic/Lymphatic: No Symptoms Immunological/Allergic: No Symptoms All Other Systems: Reviewed and Negative - Past Medical History Pertinent Past Medical History: Yes Neurological History: Migraines ENT History: Cataracts Cardiac History: Congestive Heart Failure, Coronary Artery Disease, High Cholesterol, Hypertension Respiratory History: COPD, Other Endocrine Medical History: No Pertinent History Musculoskeletal History: Arthritis GI Medical History: Diverticulitis, GERD, Polyps History: No Pertinent History Psycho-Social History: No Pertinent History Female Reproductive Disorders: Fibroids Other Medical History: pul htn, chronic back pain, auto immune disease - Past Surgical History Past Surgical History: Yes (hysterctomy,appendectomy,choly) Neuro Surgical History: Other Cardiac: Angioplasty Respiratory: No Pertinent History Gastrointestinal: Appendectomy, Cholecystectomy Genitourinary: No Pertinent History Musculoskeletal: Other Female Surgical History: Hysterectomy, Tubal Ligation, Other Other Surgical History: herinated disk, removal pus pocket to left breast, steroid to right shoulder; tonsillectomy - Social History Smoking Status: Never smoker Exposure to second hand smoke: No Alcohol Use: None Drug Use: none Patient Lives Alone: No Significant Family History: heart disease, diabetes, other - Nursing Vital Signs Nursing Vital Signs: Initial Vital Signs Temperature 98.5 F 04/08/22 16:46 Pulse Rate 78 04/08/22 16:46 Respiratory Rate 14 04/08/22 16:46 Blood Pressure 110/96 04/08/22 16:46 O2 Sat by Pulse Oximetry 93 L 04/08/22 16:46 Pain Scale Pain Intensity 0 - Toño Coma Scale Best Eye Response ([place]): (4) open spontaneously Best Verbal Response (Toño): (5) oriented Best Motor Response (Toño): (6) obeys commands Toño Total: 15 - Physical Exam General Appearance: no apparent distress, alert, obese Eye Exam: bilateral eye: normal inspection, PERRL, EOMI Ears, Nose, Throat Exam: normal ENT inspection, moist mucous membranes Neck Exam: normal inspection, non-tender, supple, full range of motion Respiratory: normal breath sounds, lungs clear, airway intact, No chest tenderness, No respiratory distress Cardiovascular: regular rate/rhythm, normal heart sounds, normal peripheral pulses Gastrointestinal: soft, normal bowel sounds, No tenderness Pelvic Exam: not done Rectal Exam: not done Back Exam: normal inspection, normal range of motion, No CVA tenderness, No vertebral tenderness Extremity Exam: normal inspection, normal range of motion, pelvis stable Mental Status: alert, oriented x 3, cooperative 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 No acute ischemic changes on today's EKG. I interpreted the twelve-lead EKG.) Ordered Tests: Active Orders 24 hr Category Date Time Status IV Insertion STAT Care 04/08/22 17:04 Active Oxygen-ED Only Nasal Cannula 3 lpm Care 04/08/22 17:17 Active Pulse Oximetry (ED) STAT Care 04/08/22 17:04 Active cath [Cath for Specimen-Straight] STAT Care 04/08/22 17:03 Active ABDOMEN AND PELVIS W/0 CONTRAS [CT] Stat Exams 04/08/22 18:58 Taken HEAD WITHOUT CONTRAST [CT] Stat Exams 04/08/22 17:04 Taken BLOOD CULTURE Stat Lab 04/08/22 17:15 Received CBC W DIFF Stat Lab 04/08/22 17:15 Completed CMP Stat Lab 04/08/22 17:15 Completed CULTURE,URINE Stat Lab 04/08/22 17:03 Received PROTIME WITH INR Stat Lab 04/08/22 17:15 Completed UA W/RFX UR CULTURE Stat Lab 04/08/22 17:03 Completed Lab/Rad Data: Laboratory Result Diagrams 04/08/22 17:15 04/08/22 17:15 Laboratory Results 04/08/22 04/08/22 04/08/22 Range/Units 17:25 17:15 17:15 WBC (4.0-10.5) x10^3/uL RBC (4.1-5.4) x10^6/uL Hgb (12.0-16.0) g/dL Hct (35-47) % MCV (78-100) fL MCH (26-32) pg MCHC (32-36) g/dL RDW (11.5-14.0) % Plt Count (150-450) x10^3/uL MPV (7.5-11.0) fL Gran % (36.0-66.0) % Immature Gran % (Auto) (0.00-0.4) % Nucleat RBC Rel Count (0.00-0.1) % Eos # (Auto) (0-0.5) x10^3/uL Immature Gran # (Auto) (0.00-0.03) x10^3u/L Absolute Lymphs (auto) (1.0-4.6) x10^3/uL Absolute Monos (auto) (0.0-1.3) x10^3/uL Absolute Nucleated RBC (0.00-0.01) x10^3u/L Lymphocytes % (24.0-44.0) % Monocytes % (0.0-12.0) % Eosinophils % (0.00-5.0) % Basophils % (0.0-0.4) % Absolute Granulocytes (1.4-6.9) x10^3/uL Basophils # (0-0.4) x10^3/uL PT 10.8 (9.4-12.5) SECONDS INR 0.99 (0.8-3.0) Sodium (137-145) mmol/L Potassium (3.5-5.1) mmol/L Chloride (98-107) mmol/L Carbon Dioxide (22-30) mmol/L Anion Gap (5-15) MEQ/L BUN (7-17) mg/dL Creatinine (0.52-1.04) mg/dL Estimated GFR ML/MIN Glucose (74-106) mg/dL Calcium (8.4-10.2) mg/dL Total Bilirubin (0.2-1.3) mg/dL AST (14-36) U/L ALT (0-35) U/L Alkaline Phosphatase (38-126) U/L Ammonia < 9 L (9-30) umol/L Serum Total Protein (6.3-8.2) g/dL Albumin (3.5-5.0) g/dL Urine Color (Yellow) Urine Appearance (Clear) Urine pH (4.6-8.0) Ur Specific [place] (1.005-1.030) Urine Protein (Negative) Urine Glucose (UA) (Negative) mg/dL Urine Ketones (Negative) Urine Blood (Negative) Urine Nitrite (Negative) Urine Bilirubin (Negative) Urine Urobilinogen (0.2) mg/dL Ur Leukocyte Esterase (Negative) U Hyaline Cast (Auto) (0-2) /LPF Urine Microscopic RBC (0-5) /HPF Urine Microscopic WBC (0-5) /HPF Ur Epithelial Cells (None Seen) /HPF Urine Bacteria (None Seen) /HPF Urine Culture Reflexed (NO) Influenza Type A Ag NEGATIVE (NEGATIVE) Influenza Type B Ag NEGATIVE (NEGATIVE) RSV (PCR) NEGATIVE (Negative) SARS-CoV-2 (PCR) NEGATIVE (NEGATIVE) 04/08/22 04/08/22 04/08/22 Range/Units 17:15 17:15 17:03 WBC 8.0 (4.0-10.5) x10^3/uL RBC 3.81 L (4.1-5.4) x10^6/uL Hgb 11.5 L (12.0-16.0) g/dL Hct 36.7 (35-47) % MCV 96.3 (78-100) fL MCH 30.2 (26-32) pg MCHC 31.3 L (32-36) g/dL RDW 17.8 H (11.5-14.0) % Plt Count 241 (150-450) x10^3/uL MPV 10.3 (7.5-11.0) fL Gran % 49.9 (36.0-66.0) % Immature Gran % (Auto) 0.2 (0.00-0.4) % Nucleat RBC Rel Count 0.0 (0.00-0.1) % Eos # (Auto) 0.64 H (0-0.5) x10^3/uL Immature Gran # (Auto) 0.02 (0.00-0.03) x10^3u/L Absolute Lymphs (auto) 2.69 (1.0-4.6) x10^3/uL Absolute Monos (auto) 0.62 (0.0-1.3) x10^3/uL Absolute Nucleated RBC 0.00 (0.00-0.01) x10^3u/L Lymphocytes % 33.5 (24.0-44.0) % Monocytes % 7.7 (0.0-12.0) % Eosinophils % 8.0 H (0.00-5.0) % Basophils % 0.7 (0.0-0.4) % Absolute Granulocytes 4.01 (1.4-6.9) x10^3/uL Basophils # 0.06 (0-0.4) x10^3/uL PT (9.4-12.5) SECONDS INR (0.8-3.0) Sodium 137 (137-145) mmol/L Potassium 4.0 (3.5-5.1) mmol/L Chloride 98 (98-107) mmol/L Carbon Dioxide 32 H (22-30) mmol/L Anion Gap 10.2 (5-15) MEQ/L BUN 15 (7-17) mg/dL Creatinine 0.94 (0.52-1.04) mg/dL Estimated GFR > 60.0 ML/MIN Glucose 165 H (74-106) mg/dL Calcium 8.5 (8.4-10.2) mg/dL Total Bilirubin 0.40 (0.2-1.3) mg/dL AST 47 H (14-36) U/L ALT 26 (0-35) U/L Alkaline Phosphatase 80 (38-126) U/L Ammonia (9-30) umol/L Serum Total Protein 6.5 (6.3-8.2) g/dL Albumin 3.7 (3.5-5.0) g/dL Urine Color Yellow (Yellow) Urine Appearance Clear (Clear) Urine pH 6.0 (4.6-8.0) Ur Specific [place] 1.010 (1.005-1.030) Urine Protein Negative (Negative) Urine Glucose (UA) Negative (Negative) mg/dL Urine Ketones Negative (Negative) Urine Blood Small A (Negative) Urine Nitrite Negative (Negative) Urine Bilirubin Negative (Negative) Urine Urobilinogen 0.2 (0.2) mg/dL Ur Leukocyte Esterase Small A (Negative) U Hyaline Cast (Auto) NONE SEEN (0-2) /LPF Urine Microscopic RBC 3-5 (0-5) /HPF Urine Microscopic WBC 3-5 (0-5) /HPF Ur Epithelial Cells Few (None Seen) /HPF Urine Bacteria Rare A (None Seen) /HPF Urine Culture Reflexed ORDERED SEPARATELY (NO) Influenza Type A Ag (NEGATIVE) Influenza Type B Ag (NEGATIVE) RSV (PCR) (Negative) SARS-CoV-2 (PCR) (NEGATIVE) - Progress Progress: improved Progress Note: 04/08/22 18:54 CT scan of the head shows no acute intracranial abnormality. The radiologist read the study and I read his report. This patient's medical issues of moderate complexity. The patient's clinical condition over the last few days has been 1 of increased confusion. She is be ing treated currently with Bactrim DS for a urinary tract infection. She still has 3 to 4 days left of that antibiotic. Additional history was obtained from the patient's daughter. Based on the patient's history of present illness, physical findings we opted to perform a CAT scan of the head, repeat a urinalysis and obtain blood draws I reviewed the results of the studies. The patient has mild hyperglycemia with a blood sugar 165, mild urinary tract infection which she is already taking Bactrim DS for and a normal ammonia level. There is no acute findings on her CAT scan of the head without contrast. In discussing these issues with the patient and the patient's daughters they would also like to have a CAT scan of the abdomen and pelvis performed because they feel that her abdomen is distended and she has not had a normal bowel movement in a few days. I do not think this is an unreasonable request and will perform that study and will infuse Rocephin 1 g intravenously while we wait for the report to return 04/08/22 20:22 CAT scan of the abdomen pelvis without contrast shows fecal stasis disease diffuse. Stable duodenal diverticulum. Sigmoid diverticulosis present. There is a stable duodenal diverticulum present. There is no acute intra-abdominal or intrapelvic findings. Counseled pt/family regarding: lab results, diagnosis, need for follow-up, rad results Medical Desision Making - Independent Historian Additional History obtained from: Child, Case Briefer/EMT - Discussion of managment Reviewed:: Test results Agreed on:: Treatment plan, need for follow-up - Diagnostic Testing Radiological Interpretation: Reviewed by me, Teleradiologist Report - Risk of complications Low Risk: Low risk of morbidity from additional dx testing or treatment - Departure Departure Disposition: Home Clinical Impression: Confusion, UTI (urinary tract infection), Constipation Condition: Stable Critical Care Time: No Referrals: JULIAN LE DO [Primary Care Provider] - Follow up/PCP as directed Additional Instructions: Give plenty of liquids to drink. Take your medication as prescribed. Call your primary care provider tomorrow morning to make arranges for follow-up appointment and for bowel hygiene regimen to help and relieving constipation..
[2022-04-08 17:25] LABS: Absolute Neutrophil Ct (ANC) 4.01 x10^3/uL (1.4-6.9); BASOPHIL % 0.7 % (0.0-0.4); Basophil (Absolute #) 0.06 x10^3/uL (0-0.4); Eosinophil (Absolute #) 0.64 x10^3/uL (0-0.5); Hematocrit 36.7 % (35-47); Hemoglobin 11.5 g/dL (12.0-16.0); IMMATURE GRAN # 0.02 x10^3u/L (0.00-0.03); IMMATURE GRAN % 0.2 % (0.00-0.4); Lymphocyte (Absolute #) 2.69 x10^3/uL (1.0-4.6); Lymphocytes % 33.5 % (24.0-44.0); Mean Cell Volume 96.3 fL (78-100); Mean Corpuscular Hemoglobin 30.2 pg (26-32); Mean Corpuscular Hgb Concent. 31.3 g/dL (32-36); Mean Platelet Volume 10.3 fL (7.5-11.0); Monocyte (Absolute #) 0.62 x10^3/uL (0.0-1.3); Monocytes % 7.7 % (0.0-12.0); Neutrophil % 49.9 % (36.0-66.0); Platelet Count 241 x10^3/uL (150-450); Red Blood Count 3.81 x10^6/uL (4.1-5.4); Red Cell Distribution Width 17.8 % (11.5-14.0)
[2022-04-08 17:36] LABS: INR 0.99 (0.8-3.0); PROTIME 10.8 SECONDS (9.4-12.5)
[2022-04-08 17:37] LABS: ALBUMIN 3.7 g/dL (3.5-5.0); ALKALINE PHOSPHATASE 80 U/L (38-126); ANION GAP 10.2 MEQ/L (5-15); BLOOD UREA NITROGEN 15 mg/dL (7-17); CHLORIDE 98 mmol/L (98-107); Calcium 8.5 mg/dL (8.4-10.2); Carbon Dioxide 32 mmol/L (22-30); Creatinine 1 0.94 mg/dL (0.52-1.04); EST GLOMERULAR FILTRATION RATE > 60.0 ML/MIN; Glucose 165 mg/dL (74-106); SGOT/AST 47 U/L (14-36); SGPT/ALT 26 U/L (0-35); SODIUM 137 mmol/L (137-145); Total Protein 6.5 g/dL (6.3-8.2)
[2022-04-08 17:53] LABS: Appearance Clear (Clear); Bilirubin Negative (Negative); Blood Small (Negative); Glucose, Urine Negative (Negative); Hyaline Casts NONE SEEN /LPF (0-2); Ketones Negative (Negative); Leukocyte Esterase Small (Negative); Nitrite Negative (Negative); Protein,Urine Dip Negative (Negative); Urobilinogen 0.2 mg/dL (0.2)
[2022-04-08 18:06] LABS: INFLUENZA A NEGATIVE (NEGATIVE); INFLUENZA B NEGATIVE (NEGATIVE); RESPIRATORY SYNCTIAL VIRUS NEGATIVE (Negative); SARS-CoV-2 Xpert Express NEGATIVE (NEGATIVE)
[2022-04-08 18:12] LABS: Epithelial Cells Few /HPF (None Seen)
[2022-04-08 18:13] LABS: ADD URINE CULTURE? ORDERED SEPARATELY (NO); Bacteria Rare /HPF (None Seen)
[2022-04-08] MEDS ORDERED: ROCEPHIN 1 Gm-D5w 50 ml Bag** 1 G/50 ML IVPB IV STA (20:29)
[2022-04-08] MEDS ORDERED: ROCEPHIN 1 Gm-D5w 50 ml Bag** 1 G/50 ML IVPB IV ONE (20:30)
[2022-04-08 21:36] VITALS: BP 106/64; PULSE 74; O2SAT 97
--- NOTE | 2022-04-09 08:37 | XRAY ---
Indication: Confusion and weakness. Multiple contiguous axial images obtained through the head without contrast. Comparison: April 01, 2018 Again age-appropriate global atrophy and mild periventricular degenerative micro-ischemia bilaterally. No acute intracranial hemorrhage, abnormal extra-axial fluid collection, or mass effect. Fourth ventricle is midline without hydrocephalus. Bony calvarium intact. There is now near complete opacification of both mastoid air cells and both middle ear presumed inflammatory. Visualized paranasal sinuses are clear. Impression: 1. New complete opacification both mastoid air cells and both middle ears presumed inflammatory. 2. Continue nonacute senile brain.
--- NOTE | 2022-04-09 08:41 | XRAY ---
Indication: Abdomen distention and constipation. Multiple contiguous axial images obtained through the abdomen and pelvis without contrast. Comparison: November 27, 2018 Lung bases again demonstrate subsegmental atelectasis/scarring, left greater than right. Heart not enlarged. Noncontrasted stomach and bowel loops nonobstructed. Stable descending duodenal diverticulum. There is now mild diffuse scattered colonic fecal debris throughout. Stable scattered colonic diverticulosis, fatty liver, hepatic/splenic calcified granulomas, left lower renal cyst, appendectomy, cholecystectomy, and hysterectomy. No free fluid/air. Remaining liver, pancreas, spleen, adrenal glands, kidneys, ureters, and bladder are unremarkable for noncontrast exam. Again mild scattered aortoiliac calcifications without AAA. Osseous structures intact again with osteopenia, moderate degenerative changes throughout the spine, and mild levoscoliosis. Progressive worsening advanced right hip and mild left hip degenerative arthropathy. Stable small epigastric fatty ventral hernia. Impression: 1. New diffuse fecal stasis. 2. Again chronic findings including duodenal diverticulum, fatty liver, colonic diverticulosis, arteriosclerotic disease, left renal cyst, chronic bony findings, and old granulomatous disease.
== END 2022-04-08 21:37 | disposition home or self-care (01) ==
LOC: ED 16:44
DX: N39.0 Urinary tract infection, site not specified (principal); K59.00 Constipation, unspecified; R41.0 Disorientation, unspecified; E78.5 Hyperlipidemia, unspecified; I11.0 Hypertensive heart disease with heart failure; I50.9 Heart failure, unspecified; Z79.01 Long term (current) use of anticoagulants; Z79.891 Long term (current) use of opiate analgesic; Z79.84 Long term (current) use of oral hypoglycemic drugs; Z79.85 Long-term (current) use of injectable non-insulin antidiabetic drugs; Z20.828 Contact with and (suspected) exposure to other viral communicable diseases
CPT/HCPCS: 0241U; 36000; 36415; 70450; 74176; 80053; 81001; 82140; 85025; 85610; 87040; 87086; 94760; 96365; 99284; P9612; 87077; 87186; J0696

== ENCOUNTER 2022-05-23 17:20 | Observation (INO) | payer MEDICARE, OTHER ==
[2022-05-23 17:53] LABS: Absolute Neutrophil Ct (ANC) 3.69 x10^3/uL (1.4-6.9); Basophil (Absolute #) 0.09 x10^3/uL (0-0.4); Eosinophil % 5.5 % (0.00-5.0); Hematocrit 38.8 % (35-47); Hemoglobin 12.6 g/dL (12.0-16.0); IMMATURE GRAN # 0.02 x10^3u/L (0.00-0.03); IMMATURE GRAN % 0.2 % (0.00-0.4); Lymphocyte (Absolute #) 3.71 x10^3/uL (1.0-4.6); Lymphocytes % 40.9 % (24.0-44.0); Mean Cell Volume 96.8 fL (78-100); Mean Corpuscular Hemoglobin 31.4 pg (26-32); Mean Corpuscular Hgb Concent. 32.5 g/dL (32-36); Mean Platelet Volume 10.5 fL (7.5-11.0); Monocyte (Absolute #) 1.07 x10^3/uL (0.0-1.3); Monocytes % 11.8 % (0.0-12.0); Neutrophil % 40.6 % (36.0-66.0); Platelet Count 238 x10^3/uL (150-450); Red Blood Count 4.01 x10^6/uL (4.1-5.4); Red Cell Distribution Width 17.5 % (11.5-14.0); White Blood Count 9.1 x10^3/uL (4.0-10.5)
[2022-05-23 18:06] LABS: ALBUMIN 3.8 g/dL (3.5-5.0); ALKALINE PHOSPHATASE 83 U/L (38-126); ANION GAP 14.5 MEQ/L (5-15); BLOOD UREA NITROGEN 15 mg/dL (7-17); CHLORIDE 99 mmol/L (98-107); Carbon Dioxide 29 mmol/L (22-30); Creatinine 1 0.65 mg/dL (0.52-1.04); EST GLOMERULAR FILTRATION RATE > 60.0 ML/MIN; Glucose 180 mg/dL (74-106); Potassium 4.5 mmol/L (3.5-5.1); SGOT/AST 54 U/L (14-36); SGPT/ALT 25 U/L (0-35); SODIUM 137 mmol/L (137-145); Total Protein 7.1 g/dL (6.3-8.2)
--- NOTE | 2022-05-23 18:21 | ERPHSYRPT ---
- History of Present Illness Source: patient, family Exam Limitations: no limitations Patient Subjective Stated Complaint: Weakness Triage Nursing Assessment: Patient brought in to ED per EMS and transferred to bed with assist of 3. Patient A+O X 3. Patient's skin pink, warm and dry. Patient complains of increased weakness the past few days. Patient states she did have an incontinence of urine this am and is usually continent. Patient denies pain or discomfort. Timing/Duration: today Severity: moderate Associated Symptoms: loss of appetite, malaise Hx Tetanus, Diphtheria Vaccination/Date Given: No Hx Influenza Vaccination/Date Given: No Hx Pneumococcal Vaccination/Date Given: No <DOMINICK DELGADO - Last Filed: 05/23/22 18:45> <CHRIS BARRETT - Last Filed: 05/23/22 19:23> - History of Present Illness Time Seen by Provider: 05/23/22 17:25 Physician History: Izzy Ann is a 82-year-old female with past medical history of COPD, oxygen dependent on 2 L/min, brought to the emergency room after family found her confused and lethargic, earlier today. Patient has a history of multiple UTIs which eventually resulted in her being confused. Patient is usually ambulatory, with assistance and with the use of a walker. Family states that she has refused to get out of bed today, stating that she is too weak to do so. Caregiver advised daughter earlier that the patient was hallucinating about "making cookies with her daughter earlier today". No recent travel, no recent exposure to sick contacts. (DOMINICK DELGADO) Allergies/Adverse Reactions: ciprofloxacin [From Cipro] Allergy (Verified 05/23/22 17:33) ciprofloxacin HCl [From Cipro] Allergy (Verified 05/23/22 17:33) levofloxacin [From Levaquin] Allergy (Verified 05/23/22 17:33) morphine Allergy (Verified 05/23/22 17:33) Antihistamines - Alkylamine Adverse Reaction (Unknown, Verified 05/23/22 17:33) Nausea doxycycline Adverse Reaction (Unknown, Verified 05/23/22 17:33) Vomiting metronidazole Adverse Reaction (Verified 05/23/22 17:33) Nausea Home Medications: Hydrocodone Bitartrate [Zohydro ER] 15 mg PO BID 03/30/15 [History] Metoprolol Succinate 25 mg Xl* [Toprol-Xl 25MG Tablets] 25 mg PO BID 08/19/17 [History] Diclofenac Sodium Gel [Voltaren GEL] 1,400 gm TOP BID PRN 03/31/18 [History] Apixaban [Eliquis 5 mg Tablet] 2.5 mg PO BID 04/08/22 [History] Cyclobenzaprine HCl 10 mg [Cyclobenzaprine 10 MG] 10 mg PO Q8H 04/08/22 [History] Famotidine 20 mg [Pepcid 20 MG] 20 mg PO DAILY 04/08/22 [History] Furosemide 40 mg [Lasix 40 MG] 40 mg PO DAILY 04/08/22 [History] Gabapentin [Neurontin ] 400 mg PO TID 04/08/22 [History] Hydrocodone/Acetaminophen [Hydrocodone-Acetamin 5-325 mg] 2 tab PO DAILY 04/08/22 [History] Metformin HCl [Metformin HCl ER] 500 mg PO EVENING MEAL 04/08/22 [History] Potassium Chloride 10 meq PO DAILY 04/08/22 [History] Pramipexole Di-HCl [Mirapex] 0.75 mg PO BID 04/08/22 [History] Semaglutide [Ozempic] 0.5 mg SQ WEEKLY 04/08/22 [History] Sertraline HCl 50 mg [Zoloft 50 mg Tablet] 50 mg PO DAILY 04/08/22 [History] Tamsulosin HCl 0.4 mg [Flomax 0.4 MG] 0.4 mg PO DAILY 04/08/22 [History] metHOTREXate sodium [Methotrexate] 17.5 mg PO WEEKLY 04/08/22 [History] Travel Risk - International Travel Have you traveled outside of the country in past 3 weeks: No - Coronavirus Screening Are you exhibiting any of the following symptoms?: No Close contact with a COVID-19 positive Pt in past 14-21 Days: No - Vaccine Status Have you recieved a Covid-19 vaccination: Yes Global Manager: Unknown - Vaccination Dates Date of 2cond Vaccination (if applicable): 2020 Dates if Unknown: last month <DOMINICK DELGADO - Last Filed: 05/23/22 18:45> - Review of Systems Constitutional: Fatigue, Lethargy, Malaise, Weakness, No Fever, No Chills Eyes: No Symptoms Ears, Nose, & Throat: No Symptoms Respiratory: No Cough, No Dyspnea Cardiac: No Chest Pain, No Edema, No Syncope Abdominal/Gastrointestinal: No Abdominal Pain, No Nausea, No Vomiting, No Diarrhea Genitourinary Symptoms: No Dysuria Musculoskeletal: No Back Pain, No Neck Pain Skin: No Rash Neurological: No Dizziness, No Focal Weakness, No Sensory Changes Psychological: No Symptoms Endocrine: No Symptoms All Other Systems: Reviewed and Negative <DOMINICK DELGADO - Last Filed: 05/23/22 18:45> - Past Medical History Pertinent Past Medical History: Yes Neurological History: Migraines ENT History: Cataracts Cardiac History: Congestive Heart Failure, Coronary Artery Disease, High Cholesterol, Hypertension Respiratory History: COPD, Other Endocrine Medical History: No Pertinent History Musculoskeletal History: Arthritis GI Medical History: Diverticulitis, GERD, Polyps History: No Pertinent History Psycho-Social History: No Pertinent History Female Reproductive Disorders: Fibroids Other Medical History: pul htn, chronic back pain, auto immune disease - Past Surgical History Past Surgical History: Yes (hysterctomy,appendectomy,choly) Neuro Surgical History: Other Cardiac: Angioplasty Respiratory: No Pertinent History Gastrointestinal: Appendectomy, Cholecystectomy Genitourinary: No Pertinent History Musculoskeletal: Other Female Surgical History: Hysterectomy, Tubal Ligation, Other Other Surgical History: herinated disk, removal pus pocket to left breast, steroid to right shoulder; tonsillectomy - Social History Smoking Status: Never smoker Exposure to second hand smoke: No Alcohol Use: None Drug Use: none Patient Lives Alone: No Significant Family History: heart disease, diabetes, other <DOMINICK DELGADO Last Filed: 05/23/22 18:45> - Physical Exam General Appearance: no apparent distress, alert Eye Exam: PERRL/EOMI, eyes nml inspection Ears, Nose, Throat Exam: normal ENT inspection, TMs normal, pharynx normal, moist mucous membranes Neck Exam: normal inspection, non-tender, supple, full range of motion Respiratory Exam: normal breath sounds, lungs clear, No respiratory distress Cardiovascular Exam: regular rate/rhythm, normal heart sounds, normal peripheral pulses Gastrointestinal/Abdomen Exam: soft, normal bowel sounds, No tenderness, No mass Back Exam: normal inspection, normal range of motion, No CVA tenderness, No vertebral tenderness Extremity Exam: normal inspection, normal range of motion, pelvis stable Neurologic Exam: alert, cooperative, nml station & gait, sensation nml, confusion, depressed mood/affect, No motor deficits Skin Exam: normal color, warm, dry, No rash Lymphatic Exam: No adenopathy SpO2: 95 O2 Delivery: Nasal Cannula (2 liters/min) <DOMINICK DELGADO - Last Filed: 05/23/22 18:45> - Nursing Vital Signs Nursing Vital Signs: Initial Vital Signs Temperature 97.6 F 05/23/22 17:34 Pulse Rate 80 05/23/22 17:34 Respiratory Rate 20 05/23/22 17:34 Blood Pressure 122/60 05/23/22 17:34 O2 Sat by Pulse Oximetry 95 05/23/22 17:34 Pain Scale Pain Intensity 0 - Course Nursing assessment & vital signs reviewed: Yes - Radiology Exams Chest X-ray Interpretation: Interpreted by me, Reviewed by me, Other (Edema, old granulomatous disease, no consolidation) <DOMINICK DELGADO - Last Filed: 05/23/22 18:45> Ordered Tests: Active Orders 24 hr Category Date Time Status CHEST 1 VIEW (PORTABLE) Stat Exams 05/23/22 17:26 Taken CBC W DIFF Stat Lab 05/23/22 17:40 Completed CMP Stat Lab 05/23/22 17:40 Completed CULTURE,URINE Stat Lab 05/23/22 17:41 Received UA W/RFX UR CULTURE Stat Lab 05/23/22 17:41 Completed Transfer Order Routine Transfer 05/23/22 Ordered Medication Summary Generic Name Dose Route Start Last Admin Trade Name Freq PRN Reason Stop Dose Admin Sodium Chloride 500 mls @ 500 mls/hr 05/23/22 18:23 05/23/22 18:27 Sodium Chloride 0.9% 500 Ml IV 05/23/22 19:22 500 mls/hr .Q1H ONE Administration Discontinued Medications Generic Name Dose Route Start Last Admin Trade Name Freq PRN Reason Stop Dose Admin Sodium Chloride Confirm 05/23/22 18:26 Sodium Chloride 0.9% 500 Ml Administered 05/23/22 18:27 Dose 500 mls @ ud IV .STK-MED ONE Ceftriaxone Sodium/Dextrose 1 g in 50 mls @ 100 mls/hr 05/23/22 18:43 05/23/22 18:50 Rocephin 1 Gm-D5w 50 Ml Bag IV 05/23/22 19:12 100 mls/hr STAT STA 100 mls/hr Administration Ceftriaxone Sodium/Dextrose Confirm 05/23/22 18:49 Rocephin 1 Gm-D5w 50 Ml Bag Administered 05/23/22 18:50 Dose 1 g in 50 mls @ ud IV .STK-MED ONE Lab/Rad Data: Laboratory Result Diagrams 05/23/22 17:40 05/23/22 17:40 Laboratory Results 05/23/22 05/23/22 05/23/22 Range/Units 17:41 17:40 17:40 WBC 9.1 (4.0-10.5) x10^3/uL RBC 4.01 L (4.1-5.4) x10^6/uL Hgb 12.6 (12.0-16.0) g/dL Hct 38.8 (35-47) % MCV 96.8 (78-100) fL MCH 31.4 (26-32) pg MCHC 32.5 (32-36) g/dL RDW 17.5 H (11.5-14.0) % Plt Count 238 (150-450) x10^3/uL MPV 10.5 (7.5-11.0) fL Gran % 40.6 (36.0-66.0) % Immature Gran % (Auto) 0.2 (0.00-0.4) % Nucleat RBC Rel Count 0.0 (0.00-0.1) % Eos # (Auto) 0.50 (0-0.5) x10^3/uL Immature Gran # (Auto) 0.02 (0.00-0.03) x10^3u/L Absolute Lymphs (auto) 3.71 (1.0-4.6) x10^3/uL Absolute Monos (auto) 1.07 (0.0-1.3) x10^3/uL Absolute Nucleated RBC 0.00 (0.00-0.01) x10^3u/L Lymphocytes % 40.9 (24.0-44.0) % Monocytes % 11.8 (0.0-12.0) % Eosinophils % 5.5 H (0.00-5.0) % Basophils % 1.0 (0.0-0.4) % Absolute Granulocytes 3.69 (1.4-6.9) x10^3/uL Basophils # 0.09 (0-0.4) x10^3/uL Sodium 137 (137-145) mmol/L Potassium 4.5 (3.5-5.1) mmol/L Chloride 99 (98-107) mmol/L Carbon Dioxide 29 (22-30) mmol/L Anion Gap 14.5 (5-15) MEQ/L BUN 15 (7-17) mg/dL Creatinine 0.65 (0.52-1.04) mg/dL Estimated GFR > 60.0 ML/MIN Glucose 180 H (74-106) mg/dL Calcium 9.0 (8.4-10.2) mg/dL Total Bilirubin 0.70 (0.2-1.3) mg/dL AST 54 H (14-36) U/L ALT 25 (0-35) U/L Alkaline Phosphatase 83 (38-126) U/L Serum Total Protein 7.1 (6.3-8.2) g/dL Albumin 3.8 (3.5-5.0) g/dL Urine Color Dark Yellow A (Yellow) Urine Appearance Turbid A (Clear) Urine pH 5.5 (4.6-8.0) Ur Specific [place] 1.020 (1.005-1.030) Urine Protein 30 (Negative) Urine Glucose (UA) Negative (Negative) mg/dL Urine Ketones Trace A (Negative) Urine Blood Small A (Negative) Urine Nitrite Negative (Negative) Urine Bilirubin Small A (Negative) Urine Urobilinogen 1.0 A (0.2) mg/dL Ur Leukocyte Esterase Large A (Negative) U Hyaline Cast (Auto) 26-50 A (0-2) /LPF Urine Microscopic RBC 0-2 (0-5) /HPF Urine Microscopic WBC >100 A (0-5) /HPF Ur Epithelial Cells Rare (None Seen) /HPF Urine Bacteria Many A (None Seen) /HPF Urine Culture Reflexed YES (NO) - Progress Progress: unchanged Counseled pt/family regarding: lab results, diagnosis <DOMINICK DELGADO - Last Filed: 05/23/22 18:45> <CHRIS BARRETT - Last Filed: 05/23/22 19:23> - Progress Progress Note: 05/23/22 18:21 18:21 - no orthostatic changes, patient unable to stand up, due to extremity weakness. 05/23/22 18:45 18:45 - paged dr Everett Verdin to discuss admission, call dropped. (DOMINICK DELGADO) Patient endorsed to Dr. Barrett at approximately 7 PM. Patient endorsed at the change of shift. Dr. Verdin initially called however due to the timing the admission was appropriate for hospitalist. Case discussed with who accepts admission to observation. Plan of care discussed with patient/Pili she agrees to admission [facility] for further evaluation and treatment. Patient is a 82-year-old female presents emergency department for evaluation of confusion generalized weakness and some lethargy. Patient initially seen by Dr. Delgado who performed the medical decision making process and decided patient should be admitted for urinary tract infection. Laboratory work-up includes CBC CMP urinalysis. Work-up reveals a significant urinary tract infection. Per report patient has a history of recurrent UTIs. In light of t his finding as well as patient's physical exam findings patient will be admitted for further evaluation and treatment. Patient received initial dose of Rocephin in our ED. Patient stable currently afebrile 05/23/22 19:20 (CHRIS BARRETT) Medical Desision Making - Independent Historian Additional History obtained from: Child - External Record(s) Reviewed Records reviewed as a part of evaluation & management: Inpatient, Discharge Summary <DOMINICK DELGADO - Last Filed: 05/23/22 18:45> - Departure Critical Care Time: No <DOMINICK DELGADO - Last Filed: 05/23/22 18:45> - Departure Departure Disposition: Observation <CHRIS BARRETT - Last Filed: 05/23/22 19:23> - Departure Clinical Impression: Urinary tract infection Qualifiers: Urinary tract infection type: acute cystitis Hematuria presence: without hematuria Qualified Code(s): N30.00 - Acute cystitis without hematuria Altered mental status Qualifiers: Altered mental status type: unspecified Qualified Code(s): R41.82 - Altered mental status, unspecified Condition: Stable Referrals: JULIAN TAYLOR, [Primary Care Provider] - Follow up/PCP as directed
[2022-05-23] MEDS ORDERED: Sodium Chloride 0.9% 500 ML 500 ML IV ONE ×2 (18:23→18:26)
[2022-05-23 18:40] LABS: ADD URINE CULTURE? YES (NO); Appearance Turbid (Clear); Bacteria Many /HPF (None Seen); Bilirubin Small (Negative); Blood Small (Negative); Epithelial Cells Rare /HPF (None Seen); Glucose, Urine Negative (Negative); Hyaline Casts 26-50 /LPF (0-2); Ketones Trace (Negative); Leukocyte Esterase Large (Negative); Nitrite Negative (Negative); Ph 5.5 (4.6-8.0); Protein,Urine Dip 30 (Negative); RBC 0-2 /HPF (0-5); WBC >100 /HPF (0-5)
[2022-05-23] MEDS ORDERED: ROCEPHIN 1 Gm-D5w 50 ml Bag** 1 G/50 ML IVPB IV STA (18:43)
[2022-05-23] MEDS ORDERED: ROCEPHIN 1 Gm-D5w 50 ml Bag** 1 G/50 ML IVPB IV ONE (18:49)
[2022-05-23 20:12] LABS: INFLUENZA A NEGATIVE (NEGATIVE); INFLUENZA B NEGATIVE (NEGATIVE); RESPIRATORY SYNCTIAL VIRUS NEGATIVE (NEGATIVE); SARS-CoV-2 Xpert Express NEGATIVE (NEGATIVE)
[2022-05-23] MEDS ORDERED: Lactated Ringers 1,000 ML IV SCH (23:45)
--- NOTE | 2022-05-23 23:57 | PCM.HP ---
History of Present Illness - Chief Complaint Chief Complaint: Delirium, urinary tract infection Date: 05/23/22 History of Present Illness: Ms. Ann is an 82 year-old female with HTN, DM2, chart diagnoses PH, CHF, COPD, and CAD (no PCI or CABG), and Sjogren's on MTX, who presents with altered mental status and a UTI. She was brought in by her daughter due to 2 days of lethargy and confusion. Upon arrival to [facility], she was found to have a UTI with normal laboratory data otherwise. Her CXR is pending, and on my examination, she is starting to become more alert and oriented with stable vital signs. - Review of Systems Constitutional: Other (UNABLE TO OBTAIN) Medications & Allergies Home Medications: Home Medication List Hydrocodone Bitartrate [Zohydro ER] 15 mg PO BID 03/30/15 [History Confirmed 05/23/22] Metoprolol Succinate 25 mg Xl* [Toprol-Xl 25MG Tablets] 25 mg PO BID 08/19/17 [History Confirmed 05/23/22] Diclofenac Sodium Gel [Voltaren GEL] 1,400 gm TOP BID PRN 03/31/18 [History Confirmed 05/23/22] Apixaban [Eliquis 5 mg Tablet] 2.5 mg PO BID 04/08/22 [History Confirmed 05/23/22] Cyclobenzaprine HCl 10 mg [Cyclobenzaprine 10 MG] 10 mg PO Q8H 04/08/22 [History Confirmed 05/23/22] Famotidine 20 mg [Pepcid 20 MG] 20 mg PO DAILY 04/08/22 [History Confirmed 05/23/22] Furosemide 40 mg [Lasix 40 MG] 40 mg PO DAILY 04/08/22 [History Confirmed 05/23/22] Gabapentin [Neurontin ] 400 mg PO TID 04/08/22 [History Confirmed 05/23/22] Hydrocodone/Acetaminophen [Hydrocodone-Acetamin 5-325 mg] 2 tab PO DAILY 04/08/22 [History Confirmed 05/23/22] Metformin HCl [Metformin HCl ER] 500 mg PO EVENING MEAL 04/08/22 [History Confirmed 05/23/22] Potassium Chloride 10 meq PO DAILY 04/08/22 [History Confirmed 05/23/22] Pramipexole Di-HCl [Mirapex] 0.25 mg PO BID 04/08/22 [History Confirmed 05/23/22] Semaglutide [Ozempic] 0.5 mg SQ WEEKLY 04/08/22 [History Confirmed 05/23/22] Sertraline HCl 50 mg [Zoloft 50 mg Tablet] 50 mg PO DAILY 04/08/22 [History Confirmed 05/23/22] Tamsulosin HCl 0.4 mg [Flomax 0.4 MG] 0.4 mg PO DAILY 04/08/22 [History Confirmed 05/23/22] metHOTREXate sodium [Methotrexate] 17.5 mg PO WEEKLY 04/08/22 [History Confirmed 05/23/22] Carboxymethylcellulose Sodium [Thera Tears] 15 ml OP DAILY 05/23/22 [History Confirmed 05/23/22] Folic Acid 1 mg [Folate 1 mg] 1 mg PO DAILY 05/23/22 [History Confirmed 05/23/22] Allergies/Adverse Reactions: Allergies Allergy/AdvReac Type Severity Reaction Status Date / Time ciprofloxacin [From Cipro] Allergy Verified 05/23/22 17:33 ciprofloxacin HCl Allergy Verified 05/23/22 17:33 [From Cipro] levofloxacin [From Levaquin] Allergy Verified 05/23/22 17:33 morphine Allergy Verified 05/23/22 17:33 Antihistamines - Alkylamine AdvReac Unknown Nausea Verified 05/23/22 17:33 doxycycline AdvReac Unknown Vomiting Verified 05/23/22 17:33 metronidazole AdvReac Nausea Verified 05/23/22 17:33 - Past Medical History Past Medical History: Yes Neurological History: Migraines ENT History: Cataracts Cardiac History: Congestive Heart Failure, Coronary Artery Disease, High Cholesterol, Hypertension Respiratory History: COPD, Other Endocrine Medical History: Diabetes Type II Musculoskelatal History: Arthritis GI Medical History: Diverticulitis, GERD, Polyps History: No Pertinent History, Other Pyscho-Social History: No Pertinent History Reproductive Disorders: Other Comment: pul htn, chronic back pain, auto immune disease - Past Surgical History Past Surgical History: Yes (hysterctomy,appendectomy,choly) Neuro Surgical History: Other Cardiac History: Angioplasty Respiratory Surgery: No Pertinent History GI Surgical History: Appendectomy, Cholecystectomy Genitourinary Surgical Hx: No Pertinent History Musculskeletal Surgical Hx: Other Female Surgical History: Hysterectomy, Tubal Ligation, Other Other Surgical History: herinated disk, removal pus pocket to left breast, steroid to right shoulder; tonsillectomy - Social History Smoking Status: Never smoker Exposure to second hand smoke: No Alcohol: None Drug Use: none Significant Family History: heart disease, diabetes, other - Physical Exam Vital Signs: Vital Signs - 24 hr Temp Pulse Resp BP Pulse Ox 05/23/22 21:00 74 20 112/82 98 05/23/22 20:00 74 122/72 94 L 05/23/22 19:00 71 125/67 93 L 05/23/22 18:51 95 05/23/22 18:21 77 135/72 94 L 05/23/22 17:34 97.6 F 80 20 122/60 95 General Appearance: no apparent distress, alert Neurologic Exam: alert Eye Exam: PERRL/EOMI Ears, Nose, Throat Exam: normal ENT inspection Neck Exam: normal inspection Respiratory Exam: normal breath sounds Cardiovascular Exam: regular rate/rhythm Gastrointestinal/Abdomen Exam: soft, normal bowel sounds Pelvic Exam: not done Rectal Exam: deferred Back Exam: normal inspection Extremity Exam: normal inspection Results - Labs Lab/Micro Results: Lab Results-Last 24 Hours 05/23/22 05/23/22 05/23/22 Range/Units 17:40 17:40 17:41 WBC 9.1 (4.0-10.5) x10^3/uL RBC 4.01 L (4.1-5.4) x10^6/uL Hgb 12.6 (12.0-16.0) g/dL Hct 38.8 (35-47) % MCV 96.8 (78-100) fL MCH 31.4 (26-32) pg MCHC 32.5 (32-36) g/dL RDW 17.5 H (11.5-14.0) % Plt Count 238 (150-450) x10^3/uL MPV 10.5 (7.5-11.0) fL Gran % 40.6 (36.0-66.0) % Immature Gran % (Auto) 0.2 (0.00-0.4) % Nucleat RBC Rel Count 0.0 (0.00-0.1) % Eos # (Auto) 0.50 (0-0.5) x10^3/uL Immature Gran # (Auto) 0.02 (0.00-0.03) x10^3u/L Absolute Lymphs (auto) 3.71 (1.0-4.6) x10^3/uL Absolute Monos (auto) 1.07 (0.0-1.3) x10^3/uL Absolute Nucleated RBC 0.00 (0.00-0.01) x10^3u/L Lymphocytes % 40.9 (24.0-44.0) % Monocytes % 11.8 (0.0-12.0) % Eosinophils % 5.5 H (0.00-5.0) % Basophils % 1.0 (0.0-0.4) % Absolute Granulocytes 3.69 (1.4-6.9) x10^3/uL Basophils # 0.09 (0-0.4) x10^3/uL Sodium 137 (137-145) mmol/L Potassium 4.5 (3.5-5.1) mmol/L Chloride 99 (98-107) mmol/L Carbon Dioxide 29 (22-30) mmol/L Anion Gap 14.5 (5-15) MEQ/L BUN 15 (7-17) mg/dL Creatinine 0.65 (0.52-1.04) mg/dL Estimated GFR > 60.0 ML/MIN Glucose 180 H (74-106) mg/dL Calcium 9.0 (8.4-10.2) mg/dL Total Bilirubin 0.70 (0.2-1.3) mg/dL AST 54 H (14-36) U/L ALT 25 (0-35) U/L Alkaline Phosphatase 83 (38-126) U/L Serum Total Protein 7.1 (6.3-8.2) g/dL Albumin 3.8 (3.5-5.0) g/dL Urine Color Dark Yellow A (Yellow) Urine Appearance Turbid A (Clear) Urine pH 5.5 (4.6-8.0) Ur Specific [place] 1.020 (1.005-1.030) Urine Protein 30 (Negative) Urine Glucose (UA) Negative (Negative) mg/dL Urine Ketones Trace A (Negative) Urine Blood Small A (Negative) Urine Nitrite Negative (Negative) Urine Bilirubin Small A (Negative) Urine Urobilinogen 1.0 A (0.2) mg/dL Ur Leukocyte Esterase Large A (Negative) U Hyaline Cast (Auto) 26-50 A (0-2) /LPF Urine Microscopic RBC 0-2 (0-5) /HPF Urine Microscopic WBC >100 A (0-5) /HPF Ur Epithelial Cells Rare (None Seen) /HPF Urine Bacteria Many A (None Seen) /HPF Urine Culture Reflexed YES (NO) Influenza Type A Ag (NEGATIVE) Influenza Type B Ag (NEGATIVE) RSV (PCR) (NEGATIVE) SARS-CoV-2 (PCR) (NEGATIVE) 05/23/22 Range/Units 19:00 WBC (4.0-10.5) x10^3/uL RBC (4.1-5.4) x10^6/uL Hgb (12.0-16.0) g/dL Hct (35-47) % MCV (78-100) fL MCH (26-32) pg MCHC (32-36) g/dL RDW (11.5-14.0) % Plt Count (150-450) x10^3/uL MPV (7.5-11.0) fL Gran % (36.0-66.0) % Immature Gran % (Auto) (0.00-0.4) % Nucleat RBC Rel Count (0.00-0.1) % Eos # (Auto) (0-0.5) x10^3/uL Immature Gran # (Auto) (0.00-0.03) x10^3u/L Absolute Lymphs (auto) (1.0-4.6) x10^3/uL Absolute Monos (auto) (0.0-1.3) x10^3/uL Absolute Nucleated RBC (0.00-0.01) x10^3u/L Lymphocytes % (24.0-44.0) % Monocytes % (0.0-12.0) % Eosinophils % (0.00-5.0) % Basophils % (0.0-0.4) % Absolute Granulocytes (1.4-6.9) x10^3/uL Basophils # (0-0.4) x10^3/uL Sodium (137-145) mmol/L Potassium (3.5-5.1) mmol/L Chloride (98-107) mmol/L Carbon Dioxide (22-30) mmol/L Anion Gap (5-15) MEQ/L BUN (7-17) mg/dL Creatinine (0.52-1.04) mg/dL Estimated GFR ML/MIN Glucose (74-106) mg/dL Calcium (8.4-10.2) mg/dL Total Bilirubin (0.2-1.3) mg/dL AST (14-36) U/L ALT (0-35) U/L Alkaline Phosphatase (38-126) U/L Serum Total Protein (6.3-8.2) g/dL Albumin (3.5-5.0) g/dL Urine Color (Yellow) Urine Appearance (Clear) Urine pH (4.6-8.0) Ur Specific [place] (1.005-1.030) Urine Protein (Negative) Urine Glucose (UA) (Negative) mg/dL Urine Ketones (Negative) Urine Blood (Negative) Urine Nitrite (Negative) Urine Bilirubin (Negative) Urine Urobilinogen (0.2) mg/dL Ur Leukocyte Esterase (Negative) U Hyaline Cast (Auto) (0-2) /LPF Urine Microscopic RBC (0-5) /HPF Urine Microscopic WBC (0-5) /HPF Ur Epithelial Cells (None Seen) /HPF Urine Bacteria (None Seen) /HPF Urine Culture Reflexed (NO) Influenza Type A Ag NEGATIVE (NEGATIVE) Influenza Type B Ag NEGATIVE (NEGATIVE) RSV (PCR) NEGATIVE (NEGATIVE) SARS-CoV-2 (PCR) NEGATIVE (NEGATIVE) - Radiology Impressions Radiology Exams & Impressions: Radiology Procedures Category Date Time Status CHEST 1 VIEW (PORTABLE) Stat Exams 05/23/22 17:26 Taken Assessment/Plan (1) UTI (urinary tract infection) Current Visit: Yes Status: Acute Qualifiers: Urinary tract infection type: acute cystitis Hematuria presence: without hematuria Qualified Code(s): N30.00 - Acute cystitis without hematuria Assessment & Plan: ASSESSMENT 1. Altered Mental Status 2. Urinary Tract Infection 3. Type II Diabetes Mellitus 4. Hypertension 5. Sjogren's Syndrome on MTX 6. Chart Diagnosis of COPD 7. Chart Diagnosis of CHF 8. Chart Diagnosis of CAD 9. Chart Diagnosis of PH PLAN 1. Mental status improving 2. Ceftriaxone 3. Fluids 4. Hold any sedating medications for tonight 5. F/U CXR Eliquis/PPI The entirety of this encounter was done via telemedicine Severo Dior MD Pulmonary and Critical Care Medicine Code(s): N39.0 - URINARY TRACT INFECTION, SITE NOT SPECIFIED Telemedicine Encounter - Telemedicine Encounter Telemedicine Encounter: The entirety of this encounter was performed via Telemedicine"
[2022-05-24 04:43] LABS: Absolute Neutrophil Ct (ANC) 3.06 x10^3/uL (1.4-6.9); BASOPHIL % 0.8 % (0.0-0.4); Basophil (Absolute #) 0.06 x10^3/uL (0-0.4); Eosinophil % 6.9 % (0.00-5.0); Eosinophil (Absolute #) 0.52 x10^3/uL (0-0.5); Hematocrit 36.7 % (35-47); Hemoglobin 11.8 g/dL (12.0-16.0); IMMATURE GRAN # 0.03 x10^3u/L (0.00-0.03); IMMATURE GRAN % 0.4 % (0.00-0.4); Lymphocyte (Absolute #) 3.02 x10^3/uL (1.0-4.6); Lymphocytes % 40.2 % (24.0-44.0); Mean Cell Volume 97.1 fL (78-100); Mean Corpuscular Hemoglobin 31.2 pg (26-32); Mean Corpuscular Hgb Concent. 32.2 g/dL (32-36); Mean Platelet Volume 10.5 fL (7.5-11.0); Monocyte (Absolute #) 0.82 x10^3/uL (0.0-1.3); Monocytes % 10.9 % (0.0-12.0); Neutrophil % 40.8 % (36.0-66.0); Platelet Count 219 x10^3/uL (150-450); Red Blood Count 3.78 x10^6/uL (4.1-5.4); Red Cell Distribution Width 17.3 % (11.5-14.0); White Blood Count 7.5 x10^3/uL (4.0-10.5)
[2022-05-24 04:58] LABS: ALBUMIN 3.4 g/dL (3.5-5.0); ALKALINE PHOSPHATASE 85 U/L (38-126); ANION GAP 10.7 MEQ/L (5-15); BLOOD UREA NITROGEN 13 mg/dL (7-17); CHLORIDE 100 mmol/L (98-107); Calcium 8.6 mg/dL (8.4-10.2); Carbon Dioxide 33 mmol/L (22-30); Creatinine 1 0.66 mg/dL (0.52-1.04); EST GLOMERULAR FILTRATION RATE > 60.0 ML/MIN; Glucose 145 mg/dL (74-106); MAGNESIUM 1.7 mg/dL (1.6-2.3); Potassium 3.6 mmol/L (3.5-5.1); SGOT/AST 38 U/L (14-36); SGPT/ALT 22 U/L (0-35); SODIUM 140 mmol/L (137-145); Total Protein 6.3 g/dL (6.3-8.2)
--- NOTE | 2022-05-24 08:53 | XRAY ---
Indication: Chest pain and weakness. Comparison: March 04, 2022 Portable chest demonstrates worsening lateral left base consolidating infiltrate/atelectasis. New minimal left upper lobe subsegmental atelectasis/scarring. Heart not enlarged. Stable bilateral hilar fullness. Bony thorax intact again with osteopenia and degenerative changes.
[2022-05-24] MEDS ORDERED: MEDICATION INTERVENTION MC SCH ×2 (09:45→16:15)
[2022-05-24] MEDS ORDERED: NON-FORMULARY ITEM (Carboxymethylcellulose Sodium [Thera Tears] 30 ML Drops) OP SCH (10:00)
[2022-05-24] MEDS ORDERED: NON-FORMULARY ITEM (Apixaban*** [Eliquis 5 Mg Tablet***] 5 MG Tablet) PO SCH (10:00)
[2022-05-24] MEDS: Flomax 0.4 MG PO SCH (10:41)
[2022-05-24] MEDS: Toprol-Xl 25MG Tablets PO SCH ×2 (10:42→21:19)
[2022-05-24] MEDS: Pepcid 20 MG PO SCH (10:42)
[2022-05-24] MEDS: ELIQUIS 2.5 MG TABLET PO SCH ×2 (10:42→21:19)
[2022-05-24] MEDS: FOLATE 1 MG PO SCH (10:42)
[2022-05-24] MEDS: ROCEPHIN 1 Gm-D5w 50 ml Bag** 1 G/50 ML IVPB IV SCH (10:42)
[2022-05-24] MEDS: Sodium Chloride 0.9% 1000 ML 1,000 ML IV SCH (10:43)
[2022-05-24] MEDS: ZOLOFT 50 MG TABLET PO SCH (16:26)
[2022-05-24] MEDS: Klor Con PO SCH (16:26)
[2022-05-24] MEDS: Cyclobenzaprine 10 MG PO SCH ×2 (16:26→21:19)
[2022-05-24] MEDS: Neurontin PO SCH ×2 (16:26→21:19)
[2022-05-24] MEDS: Glucophage XR 500 MG PO SCH (17:12)
[2022-05-24] MEDS: HUMALOG SQ PRN ×2 (17:13→21:37)
[2022-05-24] MEDS ORDERED: NON-FORMULARY ITEM (Metformin Hcl 500 MG Tab.Er.24h) PO SCH (18:00)
[2022-05-24] MEDS: Mirapex 0.5 MG Tablet PO SCH (19:25)
[2022-05-24] MEDS: PATIENT OWN MEDICATION PO SCH (21:37)
[2022-05-24] MEDS ORDERED: PRAMIPEXOLE DI HCL 0.75 MG PO SCH (22:00)
[2022-05-24] MEDS ORDERED: HYDROCODONE BITARTRATE PO SCH (22:00)
[2022-05-25] MEDS: Cyclobenzaprine 10 MG PO SCH ×3 (05:07→21:27)
[2022-05-25] MEDS: Sodium Chloride 0.9% 1000 ML 1,000 ML IV SCH (05:07)
--- NOTE | 2022-05-25 08:32 | PCM.NOTE ---
Date and Time: 05/25/22830 Subjective Assessment: patient feels well, she denies feeling confused, no pain and feels she is at her baseline. she is anxious to return to her home. Objective Exam General Appearance: obese Neurologic Exam: alert, oriented x 3, cooperative Respiratory Exam: normal breath sounds, lungs clear, No respiratory distress Cardiovascular Exam: regular rate/rhythm, normal heart sounds Gastrointestinal/Abdomen Exam: soft, No tenderness, No mass Extremity Exam: normal inspection, normal range of motion OBJECTIVE DATA Vital Signs: Vital Signs - 24 hr Temp Pulse Resp BP Pulse Ox 05/25/22 07:53 92 L 05/25/22 07:09 97.5 F 93 H 16 145/97 89 L 05/25/22 04:00 98.4 F 97 H 22 173/82 91 L 05/24/22 23:16 97.8 F 87 20 147/66 92 L 05/24/22 20:00 98.0 F 92 H 22 196/96 93 L 05/24/22 15:53 98.1 F 88 16 178/84 93 L 05/24/22 11:17 97.7 F 93 H 18 131/85 92 L Pain Assessment - Last Documented Pain Intensity 0 Intake and Output: Intake & Output 05/22/22 05/23/22 05/24/22 05/25/22 11:59 11:59 11:59 11:59 Intake Total 29 1357 Output Total 800 1200 Balance -771 157 Weight 105.4 kg Lab Results: Lab Results-Last 24 Hours 05/24/22 05/24/22 05/24/22 Range/Units 16:16 21:03 Unknown POC Glucometer 213 H 210 H (74 to 106) mg/dL Hemoglobin A1c 7.01 H (4.5-6.0) % 05/25/22 Range/Units 06:37 POC Glucometer 210 H (74 to 106) mg/dL Hemoglobin A1c (4.5-6.0) % Radiology Exams: Radiology Procedures Category Date Time Status CHEST 1 VIEW (PORTABLE) Stat Exams 05/23/22 17:26 Completed Multi-Disciplinary Progress Notes: Multi-Disciplinary Progress Notes 05/24/22 11:46 Case Management Note by Jaylin Serra Addendum entered by Jaylin Serra 05/24/22 12:01: PATIENT ALSO REQUIRES BRACES Original Note: DAUGHTER ANDREIA REQUESTS PATIENT IS NOT STOOD UP OUT OF BED WITHOUT MULTIPLE ASSISTING DEVICES. THEY STATE PATIENT NEEDS GAIT BELT, ASSISTANCE, WALKER AND WHEELCHAIR BEFORE SHE IS STOOD UP OUT. NURSING TEAM NOTIFIED Initialized on 05/24/22 11:46 - END OF NOTE 05/24/22 11:44 Case Management Note by Jaylin Serra PATIENT HAS ELDERS JOURNEY AND HOME INSTEAD CAREGIVERS AT HOME. FAMILY REPORTS THEY HAVE BEEN WITH THE FAMILY FOR A LONG TIME AND THEY ARE IN CLOSE FAMILY-LIKE CONTACT WITH THEIR CAREGIVERS. DAUGHTER ANDREIA REPORTS BOTH COMPANIES HAVE BEEN NOTIFIED OF PATIENT IN HOSPITAL AND THEY WILL NOTIFY THEM WHEN PATIENT RETURNS HOME TO RESUME CARE. Initialized on 05/24/22 11:44 - END OF NOTE Assessment/Plan (1) UTI (urinary tract infection) Current Visit: Yes Status: Acute Qualifiers: Urinary tract infection type: acute cystitis Hematuria presence: without hematuria Qualified Code(s): N30.00 - Acute cystitis without hematuria Assessment & Plan: on rocephin emperically, urine culture still pending. possibly home tomorrow when c and s available Code(s): N39.0 - URINARY TRACT INFECTION, SITE NOT SPECIFIED (2) Altered mental status Current Visit: Yes Status: Acute Qualifiers: Altered mental status type: unspecified Qualified Code(s): R41.82 - Altered mental status, unspecified Code(s): R41.82 - ALTERED MENTAL STATUS, UNSPECIFIED
[2022-05-25] MEDS: HUMALOG SQ PRN (09:01)
[2022-05-25] MEDS: FOLATE 1 MG PO SCH (09:13)
[2022-05-25] MEDS: ELIQUIS 2.5 MG TABLET PO SCH ×2 (09:13→21:27)
[2022-05-25] MEDS: Mirapex 0.5 MG Tablet PO SCH ×2 (09:13→21:25)
[2022-05-25] MEDS: Neurontin PO SCH ×3 (09:14→18:59)
[2022-05-25] MEDS: Klor Con PO SCH (09:14)
[2022-05-25] MEDS: Pepcid 20 MG PO SCH (09:14)
[2022-05-25] MEDS: ZOLOFT 50 MG TABLET PO SCH (09:14)
[2022-05-25] MEDS: Toprol-Xl 25MG Tablets PO SCH ×2 (09:14→21:27)
[2022-05-25] MEDS: Flomax 0.4 MG PO SCH (09:14)
[2022-05-25] MEDS: PATIENT OWN MEDICATION PO SCH ×2 (09:15→21:28)
[2022-05-25] MEDS ORDERED: NON-FORMULARY ITEM (Potassium Chloride [Potassium Chloride] 10 MEQ Tablet.Er) PO SCH (10:00)
[2022-05-25] MEDS: ROCEPHIN 1 Gm-D5w 50 ml Bag** 1 G/50 ML IVPB IV SCH (11:46)
[2022-05-25] MEDS: Glucophage XR 500 MG PO SCH (17:02)
[2022-05-25] MEDS ORDERED: DICLOFENAC SODIUM TP ONE (18:20)
[2022-05-25] MEDS: DICLOFENAC SODIUM TP PRN ×2 (18:21→21:41)
[2022-05-25] MEDS ORDERED: NEURONTIN PO SCH (22:00)
[2022-05-26] MEDS: Sodium Chloride 0.9% 1000 ML 1,000 ML IV SCH (03:27)
[2022-05-26 03:54] VITALS: O2SAT 95
[2022-05-26 05:18] VITALS: BP 181/71; PULSE 94
[2022-05-26] MEDS: Cyclobenzaprine 10 MG PO SCH (05:20)
[2022-05-26] MEDS: DICLOFENAC SODIUM TP PRN (05:22)
[2022-05-26 05:53] LABS: Absolute Neutrophil Ct (ANC) 5.19 x10^3/uL (1.4-6.9); BASOPHIL % 0.8 % (0.0-0.4); Basophil (Absolute #) 0.09 x10^3/uL (0-0.4); Eosinophil % 5.1 % (0.00-5.0); Eosinophil (Absolute #) 0.54 x10^3/uL (0-0.5); Hematocrit 40.1 % (35-47); Hemoglobin 12.9 g/dL (12.0-16.0); IMMATURE GRAN # 0.03 x10^3u/L (0.00-0.03); IMMATURE GRAN % 0.3 % (0.00-0.4); Lymphocyte (Absolute #) 3.67 x10^3/uL (1.0-4.6); Lymphocytes % 34.5 % (24.0-44.0); Mean Cell Volume 95.9 fL (78-100); Mean Corpuscular Hemoglobin 30.9 pg (26-32); Mean Corpuscular Hgb Concent. 32.2 g/dL (32-36); Mean Platelet Volume 10.1 fL (7.5-11.0); Monocyte (Absolute #) 1.12 x10^3/uL (0.0-1.3); Monocytes % 10.5 % (0.0-12.0); Neutrophil % 48.8 % (36.0-66.0); Platelet Count 242 x10^3/uL (150-450); Red Blood Count 4.18 x10^6/uL (4.1-5.4); Red Cell Distribution Width 16.7 % (11.5-14.0); White Blood Count 10.6 x10^3/uL (4.0-10.5)
[2022-05-26 06:03] LABS: BLOOD UREA NITROGEN 5 mg/dL (7-17); CHLORIDE 103 mmol/L (98-107); Calcium 8.3 mg/dL (8.4-10.2); Carbon Dioxide 31 mmol/L (22-30); Creatinine 1 0.54 mg/dL (0.52-1.04); EST GLOMERULAR FILTRATION RATE > 60.0 ML/MIN; Glucose 171 mg/dL (74-106); Potassium 3.2 mmol/L (3.5-5.1); SODIUM 140 mmol/L (137-145)
--- NOTE | 2022-05-26 07:26 | PCM.DS ---
Discharge Summary Date of Admission: 05/23/22 21:17 Admitting Physician: NADINE ARORA MD Primary Care Provider: JULIAN TAYLOR DO Allergies Allergies ciprofloxacin [From Cipro] Allergy (Verified 05/23/22 17:33) ciprofloxacin HCl [From Cipro] Allergy (Verified 05/23/22 17:33) levofloxacin [From Levaquin] Allergy (Verified 05/23/22 17:33) morphine Allergy (Verified 05/23/22 17:33) Antihistamines - Alkylamine Adverse Reaction (Unknown, Verified 05/23/22 17:33) Nausea doxycycline Adverse Reaction (Unknown, Verified 05/23/22 17:33) Vomiting metronidazole Adverse Reaction (Verified 05/23/22 17:33) Nausea Hospital Summary - Hospital Course Hospital Course: patient is tolerating po, feels well and wants to return to her home. she has plenty of help with caregivers and is able to walk with a walker in her home. she denies any further needs at this time. grew e coli on urine cutlure, sens to cefazolin so will discharge on keflex today. - Vitals & Intake/Output Vital Signs: Vital Signs Temperature 98.2 F 05/26/22 03:53 Pulse Rate 94 H 05/26/22 05:16 Respiratory Rate 22 05/26/22 03:53 Blood Pressure 181/71 05/26/22 05:16 O2 Sat by Pulse Oximetry 95 05/26/22 03:53 Intake & Output: Intake & Output 05/23/22 05/24/22 05/25/22 05/26/22 11:59 11:59 11:59 11:59 Intake Total 29 1477 1491 Output Total 800 1200 1500 Balance -771 277 -9 Weight 105.4 kg - Lab Result Diagrams: 05/26/22 05:33 05/26/22 05:33 Lab Results-Last 24 Hrs: Lab Results-Last 24 Hours 05/25/22 05/25/22 05/25/22 Range/Units 11:16 16:35 21:21 WBC (4.0-10.5) x10^3/uL RBC (4.1-5.4) x10^6/uL Hgb (12.0-16.0) g/dL Hct (35-47) % MCV (78-100) fL MCH (26-32) pg MCHC (32-36) g/dL RDW (11.5-14.0) % Plt Count (150-450) x10^3/uL MPV (7.5-11.0) fL Gran % (36.0-66.0) % Immature Gran % (Auto) (0.00-0.4) % Nucleat RBC Rel Count (0.00-0.1) % Eos # (Auto) (0-0.5) x10^3/uL Immature Gran # (Auto) (0.00-0.03) x10^3u/L Absolute Lymphs (auto) (1.0-4.6) x10^3/uL Absolute Monos (auto) (0.0-1.3) x10^3/uL Absolute Nucleated RBC (0.00-0.01) x10^3u/L Lymphocytes % (24.0-44.0) % Monocytes % (0.0-12.0) % Eosinophils % (0.00-5.0) % Basophils % (0.0-0.4) % Absolute Granulocytes (1.4-6.9) x10^3/uL Basophils # (0-0.4) x10^3/uL Sodium (137-145) mmol/L Potassium (3.5-5.1) mmol/L Chloride (98-107) mmol/L Carbon Dioxide (22-30) mmol/L Anion Gap (5-15) MEQ/L BUN (7-17) mg/dL Creatinine (0.52-1.04) mg/dL Estimated GFR ML/MIN Glucose (74-106) mg/dL POC Glucometer 232 H 169 H 189 H (74 to 106) mg/dL Calcium (8.4-10.2) mg/dL 05/26/22 05/26/22 Range/Units 05:33 05:33 WBC 10.6 H (4.0-10.5) x10^3/uL RBC 4.18 (4.1-5.4) x10^6/uL Hgb 12.9 (12.0-16.0) g/dL Hct 40.1 (35-47) % MCV 95.9 (78-100) fL MCH 30.9 (26-32) pg MCHC 32.2 (32-36) g/dL RDW 16.7 H (11.5-14.0) % Plt Count 242 (150-450) x10^3/uL MPV 10.1 (7.5-11.0) fL Gran % 48.8 (36.0-66.0) % Immature Gran % (Auto) 0.3 (0.00-0.4) % Nucleat RBC Rel Count 0.0 (0.00-0.1) % Eos # (Auto) 0.54 H (0-0.5) x10^3/uL Immature Gran # (Auto) 0.03 (0.00-0.03) x10^3u/L Absolute Lymphs (auto) 3.67 (1.0-4.6) x10^3/uL Absolute Monos (auto) 1.12 (0.0-1.3) x10^3/uL Absolute Nucleated RBC 0.00 (0.00-0.01) x10^3u/L Lymphocytes % 34.5 (24.0-44.0) % Monocytes % 10.5 (0.0-12.0) % Eosinophils % 5.1 H (0.00-5.0) % Basophils % 0.8 (0.0-0.4) % Absolute Granulocytes 5.19 (1.4-6.9) x10^3/uL Basophils # 0.09 (0-0.4) x10^3/uL Sodium 140 (137-145) mmol/L Potassium 3.2 L (3.5-5.1) mmol/L Chloride 103 (98-107) mmol/L Carbon Dioxide 31 H (22-30) mmol/L Anion Gap 9.0 (5-15) MEQ/L BUN 5 L (7-17) mg/dL Creatinine 0.54 (0.52-1.04) mg/dL Estimated GFR > 60.0 ML/MIN Glucose 171 H (74-106) mg/dL POC Glucometer (74 to 106) mg/dL Calcium 8.3 L (8.4-10.2) mg/dL Micro Results-Entire Visit: Microbiology 05/24/22 10:30 Urine Culture - Preliminary Urine, Indwelling Catheter NO GROWTH TO DATE 05/23/22 17:41 Urine Culture - Final Catherized Escherichia Coli Accuchecks Date 05/25/22 Date 05/25/22 Date 05/25/22 Time 16:50 Time 13:05 Time 07:37 - Procedures and Test Procedures and Tests throughout Hospitalization: Therapy Orders & Screens 05/24/22 07:06 Oxygen Nasal Cannula 4 lpm Comment: Diagnosis: Delirium, urinary tract infection Discharge Exam General Appearance: no apparent distress, obese Neurologic Exam: alert, oriented x 3, cooperative Respiratory Exam: normal breath sounds, lungs clear, No respiratory distress Cardiovascular Exam: regular rate/rhythm, normal heart sounds Gastrointestinal/Abdomen Exam: soft, No tenderness, No mass Extremity Exam: normal inspection, normal range of motion Skin Exam: normal color, warm, dry Final Diagnosis/Problem List - Final Discharge Diagnosis/Problem (1) UTI (urinary tract infection) Current Visit: Yes Status: Acute Assessment & Plan: home on po keflex Code(s): N39.0 - URINARY TRACT INFECTION, SITE NOT SPECIFIED (2) Altered mental status Current Visit: Yes Status: Acute Code(s): R41.82 - ALTERED MENTAL STATUS, UNSPECIFIED - Discharge Disposition: Home, Self-Care Condition: Stable Prescriptions: New Cephalexin Mh 500 mg [Keflex 500 mg] 500 mg PO DAILY #20 cap Cephalexin Mh 500 mg [Keflex 500 mg] 500 mg PO Q6H #28 cap Continue Hydrocodone Bitartrate [Zohydro ER] 15 mg PO QAM Metoprolol Succinate 25 mg Xl* [Toprol-Xl 25MG Tablets] 25 mg PO BID Diclofenac Sodium Gel [Voltaren GEL] 1,400 gm TOP BID PRN Apixaban [Eliquis 5 mg Tablet] 2.5 mg PO BID Cyclobenzaprine HCl 10 mg [Cyclobenzaprine 10 MG] 10 mg PO Q8H Famotidine 20 mg [Pepcid 20 MG] 20 mg PO DAILY Furosemide 40 mg [Lasix 40 MG] 40 mg PO DAILY Gabapentin [Neurontin ] 400 mg PO TID Hydrocodone/Acetaminophen [Hydrocodone-Acetamin 5-325 mg] 2 tab PO DAILY Metformin HCl [Metformin HCl ER] 500 mg PO EVENING MEAL metHOTREXate sodium [Methotrexate] 17.5 mg PO WEEKLY Potassium Chloride 10 meq PO DAILY Pramipexole Di-HCl [Mirapex] 0.25 mg PO BID Sertraline HCl 50 mg [Zoloft 50 mg Tablet] 50 mg PO DAILY Tamsulosin HCl 0.4 mg [Flomax 0.4 MG] 0.4 mg PO DAILY Folic Acid 1 mg [Folate 1 mg] 1 mg PO DAILY Carboxymethylcellulose Sodium [Thera Tears] 15 ml OP DAILY Gabapentin [Neurontin] 600 mg PO HS Additional Instructions: take keflex 500mg qid x 1 week then once daily after completion to prevent UTIs Follow up with: JULIAN TAYLOR DO [Primary Care Provider] -
[2022-05-26] MEDS: Klor Con PO SCH (09:34)
[2022-05-26] MEDS: Neurontin PO SCH (09:34)
[2022-05-26] MEDS: Pepcid 20 MG PO SCH (09:34)
[2022-05-26] MEDS: Flomax 0.4 MG PO SCH (09:34)
[2022-05-26] MEDS: ZOLOFT 50 MG TABLET PO SCH (09:34)
[2022-05-26] MEDS: ELIQUIS 2.5 MG TABLET PO SCH (09:34)
[2022-05-26] MEDS: Toprol-Xl 25MG Tablets PO SCH (09:34)
[2022-05-26] MEDS: FOLATE 1 MG PO SCH (09:34)
[2022-05-26] MEDS: Mirapex 0.5 MG Tablet PO SCH (09:35)
[2022-05-26] MEDS: PATIENT OWN MEDICATION PO SCH (09:46)
== END 2022-05-26 10:16 | disposition home or self-care (01) ==
LOC: ED 17:20 → MED SURG 21:17
PROVIDERS: ADMIT Internal Medicine Critical Care Medicine; ATTEND Family Medicine
DX: N39.0 Urinary tract infection, site not specified (principal); R41.82 Altered mental status, unspecified; I11.0 Hypertensive heart disease with heart failure; I50.9 Heart failure, unspecified; E11.9 Type 2 diabetes mellitus without complications; J44.9 Chronic obstructive pulmonary disease, unspecified; I25.10 Atherosclerotic heart disease of native coronary artery without angina pectoris; M35.00 Sjogren syndrome, unspecified; Z79.01 Long term (current) use of anticoagulants; Z79.899 Other long term (current) drug therapy; Z20.828 Contact with and (suspected) exposure to other viral communicable diseases
CPT/HCPCS: 0241U; 36000; 36415; 71045; 80048; 80053; 81001; 82947; 83036; 83735; 85025; 87077; 87086; 87186; 93268; 94760; 96360; 96365; 99284; G0378; J0696; J1817; A9270-GY